=== PATIENT | male | born 1940 | race Two or more races ===

== ENCOUNTER 2016-07-12 22:48 | Inpatient (IN) | payer OTHER ==
[2016-07-12 22:54] VITALS: BMI 26.6
--- NOTE | 2016-07-12 23:28 | PDOC ---
[id number] is a 76 year old male with a past medical hx of diverticulitis, stomach ulcer, CVA (2004) who presents to the ED complaining of rectal bleeding since this morning. The patient reports he was in his normal state of health up until this morning. He reports he had his last routine check-up 4 days ago. The patient reports he has no abdominal pain, nausea, vomiting, diarrhea, fever. He notes his only complaint is rectal bleeding. PCP: Dr. Murdock <Clemencia Walton - Last Filed: 07/13/16 01:48> <Nayeli Eugene - Last Filed: 07/13/16 03:09> - General Chief Complaint: Rectal Bleed Stated Complaint: RECTAL BLEED Time Seen by Provider: 07/12/16 23:27 Past History <Clemencia Walton - Last Filed: 07/13/16 01:48> - Psycho/Social/Smoking Cessation Hx Suicidal Ideation: No Smoking History: Never smoked Have you smoked in the past 12 months: No Information on smoking cessation initiated: No Hx Alcohol Use: No Drug/Substance Use Hx: No <Nayeli Eugene - Last Filed: 07/13/16 03:09> - Past Medical History Allergies/Adverse Reactions: Allergies Allergy/AdvReac Type Severity Reaction Status Date / Time No Known Allergies Allergy Verified 07/12/16 22:52 Home Medications: Ambulatory Orders Amlodipine Besylate/Benazepril [Lotrel 5-40 mg Capsule] 1 each PO DAILY Carvedilol [Coreg -] 25 mg PO DAILY 07/13/16 Esomeprazole Magnesium [Nexium 24Hr] 40 mg PO DAILY 07/13/16 Multivitamins [Tab-A-Vit -] 1 tab PO DAILY 07/13/16 Sitagliptin Phosphate [Januvia -] 100 mg PO DAILY@0700 07/13/16 Triamcinolone 0.1% Lotion [Aristocort] 1 applic TP DAILY 07/13/16 Review of Systems - Review of Systems Able to Perform ROS?: Yes Comments:: 07/13/16 01:30 CONSTITUTIONAL: Absent: fever, chills, diaphoresis, generalized weakness, malaise, loss of appetite HEENT: Absent: rhinorrhea, nasal congestion, throat pain, throat swelling, difficulty swallowing, mouth swelling, ear pain, eye pain, visual Changes CARDIOVASCULAR: Absent: chest pain, syncope, palpitations, irregular heart rate, lightheadedness , peripheral edema RESPIRATORY: Absent: cough, shortness of breath, dyspnea with exertion, orthopnea, wheezing, stridor, hemoptysis GASTROINTESTINAL: +Melena. Absent: abdominal pain, abdominal distension, nausea, vomiting, diarrhea, constipation, hematochezia GENITOURINARY: Absent: dysuria, frequency, urgency, hesitancy, hematuria, flank pain, genital pain MUSCULOSKELETAL: Absent: myalgia, arthralgia, joint swelling SKIN: Absent: rash, itching, pallor HEMATOLOGIC/IMMUNOLOGIC: Absent: easy bleeding, easy bruising, lymphadenopathy, frequent infections ENDOCRINE: Absent: unexplained weight gain, unexplained weight loss, heat intolerance, cold intolerance NEUROLOGIC: Absent: headache, focal weakness or paresthesias, dizziness, unsteady gait, seizure, mental status changes, bladder or bowel incontinence PSYCHIATRIC: Absent: anxiety, depression, suicidal or homicidal ideation, hallucinations. <Clemencia Walton - Last Filed: 07/13/16 01:48> *Physical Exam - Vital Signs Last Vital Signs Temp Pulse Resp BP Pulse Ox 98.2 F 75 14 161/90 97 07/12/16 22:52 07/12/16 22:52 07/12/16 22:52 07/12/16 22:52 07/12/16 22:52 - Physical Exam Comments: 07/13/16 01:31 GENERAL: Well developed, well nourished. Awake and alert. No acute distress. HEENT: Normocephalic, atraumatic. PERRLA, EOMI. No conjunctival pallor. Sclera are non- icteric. Moist mucous membranes. Oropharynx is clear. NECK: Supple. Full ROM. No JVD. Carotid pulses 2+ and symmetric, without bruits. No thyromegaly. No lymphadenopathy. CARDIOVASCULAR: Regular rate and rhythm. No murmurs, rubs, or gallops. Distal pulses are 2+ and symmetric. PULMONARY: No evidence of respiratory distress. Lungs clear to auscultation bilaterally. No wheezing, rales or rhonchi. ABDOMINAL: Soft. Non-tender. Non-distended. No rebound or guarding. No organomegaly. Normoactive bowel sounds. RECTAL: +Melena MUSCULOSKELETAL Normal range of motion at all joints. No bony deformities or tenderness. No CVA tenderness. EXTREMITIES: No cyanosis. No clubbing. No edema. No calf tenderness. SKIN: Warm and dry. Normal capillary refill. No rashes. No jaundice. NEUROLOGICAL: +Chronic aphasia. Alert, awake, appropriate. Cranial nerves 2-12 intact. No deficits to light touch and temperature in face, upper extremities and lower extremities. No motor deficits in the in face, upper extremities and lower extremities. PSYCHIATRIC: Cooperative. Good eye contact. Appropriate mood and affect. <Clemencia Walton - Last Filed: 07/13/16 01:48> - Vital Signs Last Vital Signs Temp Pulse Resp BP Pulse Ox 98.2 F 75 14 161/90 97 07/12/16 22:52 07/12/16 22:52 07/12/16 22:52 07/12/16 22:52 07/12/16 22:52 <Nayeli Eugene - Last Filed: 07/13/16 03:09> ED Treatment Course - LABORATORY CBC & Chemistry Diagram: 07/12/16 23:58 07/12/16 23:58 - ADDITIONAL ORDERS Additional order review: Laboratory Results 07/12/16 07/12/16 23:58 23:58 Sodium 138 Potassium 4.4 Chloride 98 Carbon Dioxide 31 Anion Gap 9 BUN 19 H Creatinine 1.2 Creat Clearance w eGFR 59.02 Random Glucose 142 H Calcium 8.9 Total Bilirubin 0.2 AST 17 ALT 20 Alkaline Phosphatase 134 H Total Protein 7.3 Albumin 3.4 Blood Type B POSITIVE Antibody Screen Negative 07/12/16 23:58 RBC 4.46 MCV 86.8 MCHC 33.6 RDW 13.1 MPV 8.7 Neutrophils % 73.1 Lymphocytes % 16.1 Monocytes % 7.1 Eosinophils % 3.0 Basophils % 0.7 - Medications Given in the ED: ED Medications Discontinued Medications Generic Name Dose Route Start Last Admin Trade Name Freq PRN Reason Stop Dose Admin Pantoprazole Sodium 40 mg/ 100 mls @ 200 mls/hr 07/12/16 23:29 07/13/16 00:02 Sodium Chloride IVPB 07/12/16 23:58 200 mls/hr ONCE ONE Administration <Clemencia Walton - Last Filed: 07/13/16 01:48> - LABORATORY CBC & Chemistry Diagram: 07/12/16 23:58 07/12/16 23:58 <Nayeli Eugene - Last Filed: 07/13/16 03:09> Medical Decision Making - Medical Decision Making 07/13/16 01:[address] Sherwood at 01:28 via answering service, awaiting call back. Dr. Sherwood called back at 01:40, patients case was discussed. <Clemencia Walton - Last Filed: 07/13/16 01:48> - Medical Decision Making 07/13/16 03:06 76 yo male p/w rectal bleeding, melena -no chest pain,no dizziness - troponin negative -hbg and hct normal -normal kidney function -IV protonix given -soft abdominal exam -plan pt admitted for repeat cbc/GI consult,monitoring <Nayeli Eugene - Last Filed: 07/13/16 03:09> *DC/Admit/Observation/Transfer - Attestations Scribe Attestion: 07/13/16 01:30 Documentation prepared by Clemencia Walton, acting as medical secretary for Nayeli Eugene MD/DO. <Clemencia Walton - Last Filed: 07/13/16 01:48> - Discharge Dispostion Admit: Yes <Nayeli Eugene - Last Filed: 07/13/16 03:09> Diagnosis at time of Disposition: Melena, Rectal bleeding Diabetes Qualifiers: Diabetes mellitus type: type 2 Diabetes mellitus complication status: without complication Diabetes mellitus snf insulin use: without assistant terminal manager use Qualified Code(s): E11.9 - Type 2 diabetes mellitus without complications Hypertension Qualifiers: Hypertension type: essential hypertension Qualified Code(s): I10 - Essential ( primary) hypertension - Referrals
[2016-07-12] MEDS ORDERED: PANTOPRAZOLE SODIUM 40 MG in SODIUM CHLORIDE 100 ML IVPB ONE (23:29)
[2016-07-12] MEDS ORDERED: PANTOPRAZOLE SODIUM 100 ML IVPB ONE (23:50)
[2016-07-13 00:11] LABS: BASOPHIL 0.7 % (0-2.0); MCH 29.2 pg (25.7-33.7); MCHC 33.6 g/dl (32.0-35.9); MEAN CELL VOLUME 86.8 fl (80-96); MEAN PLT VOLUME 8.7 fl (7.5-11.1); NEUTROPHILS 73.1 % (42.8-82.8); PLATELET COUNT 236 K/MM3 (134-434); RDW 13.1 % (11.9-15.9); WHITE BLOOD COUNT 11.7 K/mm3 (4.0-10.0)
[2016-07-13 00:34] LABS: ALBUMIN 3.4 g/dl (3.4-5.0); BILIRUBIN,TOTAL 0.2 mg/dL (0.2-1.0); CALCIUM 8.9 mg/dL (8.5-10.1); CREATININE 1.2 mg/dL (0.7-1.3); TOT PROT 7.3 g/dl (6.4-8.2)
[2016-07-13 02:56] LABS: INR 1.14 (0.82-1.09); PROTHROMBIN TIME (PATIENT) 12.6 SEC (9.98-11.88)
[2016-07-13 04:30] LABS: TROPONIN I < 0.02 ng/ml (0.00-0.05)
[2016-07-13] MEDS ORDERED: D5-1/2NS+10 MEQ KCL - 1,000 ML IV SCH (09:15)
[2016-07-13] MEDS ORDERED: PANTOPRAZOLE SODIUM 40 MG VIAL ONE (09:53)
[2016-07-13] MEDS ORDERED: PANTOPRAZOLE SODIUM 40 MG in SODIUM CHLORIDE 100 ML IVPB SCH (10:00)
[2016-07-13] MEDS: D5-NS + 20 MEQ KCL - 1,000 ML IV SCH (10:05)
[2016-07-13] MEDS: PANTOPRAZOLE SODIUM 80 MG in SODIUM CHLORIDE 100 ML IVPB SCH ×2 (10:05→19:30)
[2016-07-13 10:09] LABS: MCH 29.1 pg (25.7-33.7); MCHC 33.5 g/dl (32.0-35.9); MEAN CELL VOLUME 86.9 fl (80-96); MEAN PLT VOLUME 8.8 fl (7.5-11.1); PLATELET COUNT 242 K/MM3 (134-434); RDW 13.2 % (11.9-15.9); WHITE BLOOD COUNT 12.4 K/mm3 (4.0-10.0)
[2016-07-13] MEDS ORDERED: CARVEDILOL 25 MG TABLET (FP) PO ONE (10:15)
[2016-07-13 10:31] LABS: TROPONIN I < 0.02 ng/ml (0.00-0.05)
--- NOTE | 2016-07-13 10:38 | HP ---
Admitting History and Physical - Primary Care Physician PCP: Elliott Murdock - Admission Chief Complaint: gi bleeding History of Present Illness: ER HISTORY - History of Present Illness Initial Comments: 07/13/16 01:29 The patient is a 76 year old male with a past medical hx of diverticulitis, stomach ulcer, CVA (2004) who presents to the ED complaining of rectal bleeding since this morning. The patient reports he was in his normal state of health up until this morning. He reports he had his last routine check-up 4 days ago. The patient reports he has no abdominal pain, nausea, vomiting, diarrhea, fever. He notes his only complaint is rectal bleeding. PCP: Dr. Murdock Pt seen by me in ER Son at bedside spoke with nurse- pt has been having continuous rectal bleeding since he came to the ER. C/O aching pain in epigastric region. no dizziness, nausea . Has some chest pain - points to the bottom of his chest this morning. Has colic type of pain when he goes for bm. Denies any NSAID use. He takes ASA 81 mg daily. He has h/o stomach ulcer 2 years ago and was on Plavix at that time. When he was changted about an hour ago, noted to have continuous oozing of blood. Fresh marylou blood, passing some clots per son. History Source: Patient, Family Member Limitations to Obtaining History: No Limitations - Past Medical History DIRECTOR HUMAN SERVICES: Yes: CVA Cardiovascular: Yes: HTN Gastrointestinal: Yes: Diverticulitis, Peptic Ulcer Disease Endocrine: Yes: Diabetes Mellitus - Smoking History Smoking history: Never smoked Have you smoked in the past 12 months: No - Alcohol/Substance Use Hx Alcohol Use: No - Social History ADL: Independent History of Recent Travel: No Home Medications - Allergies Allergies/Adverse Reactions: Allergies Allergy/AdvReac Type Severity Reaction Status Date / Time No Known Allergies Allergy Verified 07/12/16 22:52 - Home Medications Home Medications: Ambulatory Orders Amlodipine Besylate/Benazepril [Lotrel 5-40 mg Capsule] 1 each PO DAILY Carvedilol [Coreg -] 25 mg PO DAILY 07/13/16 Esomeprazole Magnesium [Nexium 24Hr] 40 mg PO DAILY 07/13/16 Multivitamins [Tab-A-Vit -] 1 tab PO DAILY 07/13/16 Sitagliptin Phosphate [Januvia -] 100 mg PO DAILY@0700 07/13/16 Triamcinolone 0.1% Lotion [Aristocort] 1 applic TP DAILY 07/13/16 Review of Systems - Review of Systems Constitutional: denies: Chills, Fever, Lethargy, Loss of Appetite, Weakness Cardiovascular: reports: Chest Pain. denies: Palpitations, Shortness of Breath Gastrointestinal: reports: Abdominal Pain, Melena, Rectal Bleeding. denies: Diarrhea, Dysphagia, Nausea, Vomiting, Vomiting Blood Neurological: denies: Dizziness Physical Examination Vital Signs: Vital Signs Temperature 98.3 F 07/13/16 08:45 Pulse Rate 76 07/13/16 08:45 Respiratory Rate 16 07/13/16 08:45 Blood Pressure 141/86 07/13/16 08:45 O2 Sat by Pulse Oximetry (%) 98 07/13/16 08:45 Constitutional: Yes: No Distress, Calm Cardiovascular: Yes: Regular Rate and Rhythm Respiratory: Yes: CTA Bilaterally Gastrointestinal: Yes: Normal Bowel Sounds, Soft, Abdomen, Obese. No: Distention, Tenderness Edema: No Psychiatric: Yes: Alert, Oriented Labs: CBC, BMP 07/13/16 09:30 Imaging - Results Chest X-ray: Image Reviewed (clear) EKG: Image Reviewed (NSR, no ST changes) Problem List - Problems (1) Rectal bleeding Code(s): K62.5 - HEMORRHAGE OF ANUS AND RECTUM (2) Diabetes Code(s): E11.9 - TYPE 2 DIABETES MELLITUS WITHOUT COMPLICATIONS Qualifiers: Diabetes mellitus type: type 2 Diabetes mellitus complication status: without complication Diabetes mellitus exterminator termite insulin use: without care home use Qualified Code(s): E11.9 - Type 2 diabetes mellitus without complications (3) Hypertension Code(s): I10 - ESSENTIAL (PRIMARY) HYPERTENSION Qualifiers: Hypertension type: essential hypertension Qualified Code(s): I10 - Essential (primary) hypertension (4) Melena Code(s): K92.1 - MELENA Assessment/Plan PLAN Protonix drip monitor CBC GI evaluation-- spoke with Dr manjarrez about the case Spoke with ICU attending for transfer to the unit Transfuse platelets and PRBC hold off diabetic meds, Amlodipine/Benazepril as BP slightly low IV fluids Keep NPO Prognosis guarded DVT prophylaxis-- SCD Spoke with son Time spent - 45 min
[2016-07-13] MEDS: TRIAMCINOLONE ACET 0.1% 60 ML LOTION TP SCH (11:58)
[2016-07-13] MEDS: INSULIN SLIDING SCALE (NOVOLOG) 1 VIAL SQ SCH ×2 (11:58→18:05)
--- NOTE | 2016-07-13 13:30 | EKG ---
Test Reason : Blood Pressure : / mmHG Vent. Rate : 072 BPM Atrial Rate : 072 BPM P-R Int : 198 ms QRS Dur : 086 ms QT Int : 370 ms P-R-T Axes : 038 -08 033 degrees QTc Int : 405 ms NORMAL SINUS RHYTHM NORMAL ECG WHEN COMPARED WITH ECG OF 30-SEP-2004 08:01, NO SIGNIFICANT CHANGE WAS FOUND Confirmed by ZACH JACOBSON MD ([id number]) on 07/13/2016 1:29:50 PM Referred By: Confirmed By:ZACH JACOBSON MD
--- NOTE | 2016-07-13 14:33 | CONSULT ---
Consult Consult Specialty:: PULMONARY/CCM Referred by:: Dr. Reynolds Reason for Consultation:: GI Bleed - History of Present Illness Chief Complaint: GI Bleed History of Present Illness: 76yo male with h/o CVA, diverticulitis, gastric ulcer found in 2007 on endoscopy who presents with onset of rectal bleeding this AM. He reports bright red blood per rectum with clots which continued in the ER. Became tachycardic, diaphoretic and hypotensive which responded to IVF boluses. He denies any nausea , vomiting or abdominal pain. He takes ASA 81mg daily but denies NSAIDs, alcohol use. Denies anticoagulation use. - History Source History Provided By: Patient, Medical Record Limitations to Obtaining History: Clinical Condition - Past Medical History DIRECTOR FURNITURE: Yes: CVA Cardio/Vascular: Yes: HTN Gastrointestinal: Yes: Diverticulitis, Peptic Ulcer Disease Endocrine: Yes: Diabetes Mellitus - Alcohol/Substance Use Hx Alcohol Use: No - Smoking History Smoking history: Never smoked Have you smoked in the past 12 months: No - Social History ADL: Independent History of Recent Travel: No Home Medications - Allergies Allergies/Adverse Reactions: Allergies Allergy/AdvReac Type Severity Reaction Status Date / Time No Known Allergies Allergy Verified 07/12/16 22:52 - Home Medications Home Medications: Ambulatory Orders Amlodipine Besylate/Benazepril [Lotrel 5-40 mg Capsule] 1 each PO DAILY Carvedilol [Coreg -] 25 mg PO DAILY 07/13/16 Esomeprazole Magnesium [Nexium 24Hr] 40 mg PO DAILY 07/13/16 Multivitamins [Tab-A-Vit -] 1 tab PO DAILY 07/13/16 Sitagliptin Phosphate [Januvia -] 100 mg PO DAILY@0700 07/13/16 Triamcinolone 0.1% Lotion [Aristocort] 1 applic TP DAILY 07/13/16 Family Disease History - Family Disease History Other Family History: non-contributory Review of Systems - Review of Systems Constitutional: denies: Chills, Fever Eyes: denies: Recent Change in Vision HENT: denies: Nasal Congestion, Throat Pain Neck: denies: Stiffness, Tenderness Cardiovascular: denies: Chest Pain, Palpitations, Shortness of Breath Respiratory: denies: Cough, Hemoptysis, SOB Gastrointestinal: reports: Rectal Bleeding. denies: Abdominal Pain, Nausea, Vomiting Genitourinary: denies: Dysuria, Hematuria Neurological: denies: Dizziness, Headache Physical Exam Vital Signs: Vital Signs Temperature 98.3 F 07/13/16 08:45 Pulse Rate 64 07/13/16 13:50 Respiratory Rate 20 07/13/16 13:50 Blood Pressure 116/67 07/13/16 13:50 O2 Sat by Pulse Oximetry (%) 100 07/13/16 13:50 Constitutional: Yes: Calm Eyes: Yes: Conjunctiva Clear, EOM Intact HENT: Yes: Atraumatic, Normocephalic, Tonsillar Exudate Neck: Yes: Supple, Trachea Midline Cardiovascular: Yes: Regular Rate and Rhythm Respiratory: Yes: Regular, CTA Bilaterally Gastrointestinal: Yes: Normal Bowel Sounds, Soft. No: Tenderness Edema: No Neurological: Yes: Alert, Oriented, Dysarthria Labs: CBC, BMP 07/13/16 09:30 Imaging - Results Chest X-ray: Report Reviewed, Image Reviewed (no infiltrates) Problem List - Problems (1) GI bleed Code(s): K92.2 - GASTROINTESTINAL HEMORRHAGE, UNSPECIFIED (2) Diverticulosis Code(s): K57.90 - DVRTCLOS OF INTEST, PART UNSP, W/O PERF OR ABSCESS W/O BLEED (3) Acute blood loss anemia Code(s): D62 - ACUTE POSTHEMORRHAGIC ANEMIA (4) Diabetes Code(s): E11.9 - TYPE 2 DIABETES MELLITUS WITHOUT COMPLICATIONS Qualifiers: Diabetes mellitus type: type 2 Diabetes mellitus complication status: without complication Diabetes mellitus technician terminal and repeater insulin use: without mcc use Qualified Code(s): E11.9 - Type 2 diabetes mellitus without complications (5) Hypertension Code(s): I10 - ESSENTIAL (PRIMARY) HYPERTENSION Qualifiers: Hypertension type: essential hypertension Qualified Code(s): I10 - Essential (primary) hypertension (6) History of CVA (cerebrovascular accident) Code(s): Z86.73 - PRSNL HX OF TIA (TIA), AND CEREB INFRC W/O RESID DEFICITS Assessment/Plan GI Bleed likely lower h/o Diverticulosis Acute Blood Loss Anemia h/o CVA HTN DM - monitor H/H - transfuse PRBC - protonix for now - NPO - GI evaluation - ensure large bore peripheral access - DVT prophylaxis - ICU monitoring for now Thank you for this consult Kaushik Gale MD
--- NOTE | 2016-07-13 16:44 | PN ---
Physical Exam: SUBJECTIVE: Patient seen and examined at bedside in ICU. He reported feeling fine and no active complaint. Denies active chest pain, shortness of breath, abd pain, urinary symptoms, fever, chills, dizziness, vision change or weakness. OBJECTIVE: Vital Signs Period Temp Pulse Resp BP Sys/Mcgill Pulse Ox Last 24 Hr 98.3 F 64-76 14-20 76-141/56-86 97-100 GENERAL: AAO x 3, no acute cardiopulmonary distress EYES: sclera anicteric, conjunctiva clear. ENT:nares patent, oropharynx clear without exudates LUNGS: Slight rhonchi in RUL and RLL HEART: RRR, S1, S2 with grade 1-2 ejection murmur, rub or gallop. ABDOMEN: Soft, obese nontender, nondistended, hypoactive bowel sounds, no guarding, no rebound EXTREMITIES: no edema. RECTAL: No external hemorrhoids seen, no hard stool deposited in rectal vault, brown stool upon swab, no active bleeding, hard but non-tender prostate CBCD WBC 12.4 K/mm3 (4.0-10.0) H 07/13/16 09:30 RBC 3.97 M/mm3 (4.00-5.60) L 07/13/16 09:30 Hgb 11.6 GM/dL (11.7-16.9) L D 07/13/16 09:30 Hct 34.5 % (35.4-49) L 07/13/16 09:30 MCV 86.9 fl (80-96) 07/13/16 09:30 MCHC 33.5 g/dl (32.0-35.9) 07/13/16 09:30 RDW 13.2 % (11.9-15.9) 07/13/16 09:30 Plt Count 242 K/MM3 (134-434) 07/13/16 09:30 MPV 8.8 fl (7.5-11.1) 07/13/16 09:30 CMP Sodium 138 mmol/L (136-145) 07/12/16 23:58 Potassium 4.4 mmol/L (3.5-5.1) 07/12/16 23:58 Chloride 98 mmol/L (98-107) 07/12/16 23:58 Carbon Dioxide 31 mmol/L (21-32) 07/12/16 23:58 Anion Gap 9 (8-16) 07/12/16 23:58 BUN 19 mg/dL (7-18) H 07/12/16 23:58 Creatinine 1.2 mg/dL (0.7-1.3) 07/12/16 23:58 Creat Clearance w eGFR 59.02 (>60) 07/12/16 23:58 Calcium 8.9 mg/dL (8.5-10.1) 07/12/16 23:58 Total Bilirubin 0.2 mg/dL (0.2-1.0) 07/12/16 23:58 AST 17 U/L (15-37) 07/12/16 23:58 ALT 20 U/L (12-78) 07/12/16 23:58 Alkaline Phosphatase 134 U/L (45-117) H 07/12/16 23:58 Total Protein 7.3 g/dl (6.4-8.2) 07/12/16 23:58 Albumin 3.4 g/dl (3.4-5.0) 07/12/16 23:58 Intake & Output 07/10/16 07/11/16 07/12/16 07/13/16 23:59 23:59 23:59 23:59 Weight 79.379 kg Active Medications Generic Name Dose Route Start Last Admin Trade Name Yen PRN Reason Stop Dose Admin Carvedilol 25 mg 07/14/16 10:00 Coreg - PO DAILY [facility] Dextrose/Sodium Chloride 1,000 mls @ 100 mls/hr 07/13/16 09:15 07/13/16 10:05 Dextrose 5%-Normal Saline+20 Meq Kcl - IV 100 mls/hr ASDIR [facility]ENCE Administration Pantoprazole Sodium 80 mg/ 100 mls @ 10 mls/hr 07/13/16 09:15 07/13/16 10:05 Sodium Chloride IVPB 10 mls/hr Q10H [facility]ENCE Administration 8 MG/HR Insulin Aspart 1 vial 07/13/16 11:00 07/13/16 11:58 Novolog Vial Sliding Scale - SQ Not Given TIDAC [facility] Protocol Triamcinolone Acetonide 1 applic 07/13/16 10:00 07/13/16 11:58 Aristocort 0.1% Lotion - TP Not Given DAILY [facility] IMAGING CXR on 07/13: No acute pathology ASSESSMENT/PLAN: 76 yo M w/ h/o diverticulitis, gastric ulcers, and CVA admitted to the ICU for acute hematochezia. GI: Hematochezia 2/2 diverticular bleed - Hemodynamically stable - Peripheral IV access in case of fluid resuscitation - Supplemental O2 via NC - Trend CBC * maintain HGB > 9 due to h/o CVA * transfuse FFP if platelets < 50k or INR > 1.5 - Avoid NSAID or AC - Surgery consult - Urgent colonoscopy FEN - IVF - Normal lytes, cont. to monitor - NPO for colonoscopy Prophylaxis - DVT: SCD - GI: on PPI gtt Disposition - Cont. to monitor in ICU Code status - Full code Visit type - Emergency Visit Emergency Visit: Yes ED Registration Date: 07/13/16 Care time: The patient presented to the Emergency Department on the above date and was hospitalized for further evaluation of their emergent condition. - New Patient This patient is new to me today: Yes Date on this admission: 07/13/16 - Critical Care Critical Care patient: Yes Total Critical Care Time (in minutes): 45 Critical Care Statement: The care of this patient involved high complexity decision making to prevent further life threatening deterioration of the patient 's condition and/or to evalute & treat vital organ system(s) failure or risk of failure.
[2016-07-13] MEDS ORDERED: SODIUM CHLORIDE 1,000 ML IV SCH (18:15)
--- NOTE | 2016-07-13 21:10 | CON.GI ---
Consult Referred by:: GI Reason for Consultation:: LGIB - History of Present Illness Chief Complaint: LGIB History of Present Illness: 76 M with h/o diverticulosis/itis, PUD (remote) CVA stated BRBPR on the morning of admission. Seen to pass red blood in the ER at which time he became diaphoretic, tachycardic and hypotensive. He was resuscitated with IVF and brought to the ICU. He takes ASA but no other AC. He is on Rx nexium at home. 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 Cardio/Vascular: Yes: HTN Gastrointestinal: Yes: Diverticulitis, Peptic Ulcer Disease Endocrine: Yes: Diabetes Mellitus - Alcohol/Substance Use Hx Alcohol Use: No - Smoking History Smoking history: Never smoked Have you smoked in the past 12 months: No - Social History ADL: Independent History of Recent Travel: No Home Medications - Allergies Allergies/Adverse Reactions: Allergies Allergy/AdvReac Type Severity Reaction Status Date / Time No Known Allergies Allergy Verified 07/12/16 22:52 - Home Medications Home Medications: Ambulatory Orders Amlodipine Besylate/Benazepril [Lotrel 5-40 mg Capsule] 1 each PO DAILY Carvedilol [Coreg -] 25 mg PO DAILY 07/13/16 Esomeprazole Magnesium [Nexium 24Hr] 40 mg PO DAILY 07/13/16 Multivitamins [Tab-A-Vit -] 1 tab PO DAILY 07/13/16 Sitagliptin Phosphate [Januvia -] 100 mg PO DAILY@0700 07/13/16 Triamcinolone 0.1% Lotion [Aristocort] 1 applic TP DAILY 07/13/16 Family Disease History - Family Disease History Other Family History: non-contributory Physical Exam-GI Vital Signs: Vital Signs Temperature 98.3 F 07/13/16 08:45 Pulse Rate 67 07/13/16 18:44 Respiratory Rate 18 07/13/16 18:44 Blood Pressure 124/62 07/13/16 18:44 O2 Sat by Pulse Oximetry (%) 97 07/13/16 16:00 Constitutional: Yes: Well Nourished HENT: Yes: Normocephalic Neck: Yes: Supple Cardiovascular: Yes: Regular Rate and Rhythm Respiratory: Yes: Regular Gastrointestinal Inspection: Yes: WNL ...Auscultate: Yes: Hyperactive Bowel Sounds ...Palpate: Yes: Soft. No: Tenderness Labs: CBC, BMP INR, PTT INR 1.14 (0.82-1.09) 07/12/16 23:58 CBC, BMP 07/13/16 09:30 07/12/16 23:58 Assessment/Plan Patient is a 76 M with above history now with what appears to be an upper GIB A/P Stat labs protonix drip IVF NPO Transfuse as necessary to maintain Hgb of 9 (Last Hgb 11.6) EGD when stable
[2016-07-13] MEDS: CHLORHEXIDINE GLUCONATE 4% CLEANSER FOR DECOLONIZATION TP SCH (21:37)
[2016-07-13] MEDS: MUPIROCIN 2% TOPICAL OINTMENT FOR DECOLONIZATION NS SCH (21:37)
[2016-07-13 22:07] LABS: MCH 29.3 pg (25.7-33.7); MCHC 33.6 g/dl (32.0-35.9); MEAN CELL VOLUME 87.2 fl (80-96); MEAN PLT VOLUME 9.1 fl (7.5-11.1); PLATELET COUNT 224 K/MM3 (134-434); RDW 13.5 % (11.9-15.9); WHITE BLOOD COUNT 14.1 K/mm3 (4.0-10.0)
[2016-07-13 22:35] LABS: ALBUMIN 2.9 g/dl (3.4-5.0); ANION GAP 9 (8-16); BILIRUBIN,TOTAL 0.8 mg/dL (0.2-1.0); CO2 28 mmol/L (21-32); GLUCOSE,RANDOM 90 mg/dL (74-106); SGOT/AST 13 U/L (15-37); SGPT/ALT 18 U/L (12-78); TOT PROT 6.1 g/dl (6.4-8.2)
[2016-07-13 22:36] LABS: ALK PHOS 96 U/L (45-117)
[2016-07-14 06:18] LABS: BASOPHIL 0.6 % (0-2.0); EOSINOPHIL 2.6 % (0-4.5); MCH 29.7 pg (25.7-33.7); MCHC 33.9 g/dl (32.0-35.9); MEAN CELL VOLUME 87.7 fl (80-96); MEAN PLT VOLUME 8.5 fl (7.5-11.1); NEUTROPHILS 68.7 % (42.8-82.8); PLATELET COUNT 273 K/MM3 (134-434); RDW 13.2 % (11.9-15.9); WHITE BLOOD COUNT 11.8 K/mm3 (4.0-10.0)
[2016-07-14 06:32] LABS: INR 1.21 (0.82-1.09); PROTHROMBIN TIME (PATIENT) 13.4 SEC (9.98-11.88)
[2016-07-14 06:35] LABS: ACTIVATED PTT 28.8 SECONDS (26.9-34.4)
[2016-07-14 06:47] LABS: ANION GAP 8 (8-16); CALCIUM 8.4 mg/dL (8.5-10.1); CO2 31 mmol/L (21-32); GLUCOSE,RANDOM 124 mg/dL (74-106); MAGNESIUM 1.8 mg/dL (1.8-2.4); PHOSPHOROUS 2.5 mg/dL (2.5-4.9); SGOT/AST 15 U/L (15-37)
[2016-07-14 06:49] LABS: ALK PHOS 103 U/L (45-117); BILIRUBIN,TOTAL 0.6 mg/dL (0.2-1.0); SGPT/ALT 18 U/L (12-78); TOT PROT 6.3 g/dl (6.4-8.2)
[2016-07-14] MEDS: INSULIN SLIDING SCALE (NOVOLOG) 1 VIAL SQ SCH ×3 (07:02→18:14)
[2016-07-14] MEDS: PANTOPRAZOLE SODIUM 80 MG in SODIUM CHLORIDE 100 ML IVPB SCH ×2 (07:03→15:29)
--- NOTE | 2016-07-14 08:00 | CONSULT ---
- Consultation REQUESTING PROVIDER: [place] CONSULT REQUEST: We have been asked to surgically evaluate this patient for possible management of GI bleeding PCP:Nathan Sherwood HISTORY OF PRESENT ILLNESS:76 y/o male w/remote h/o PUD presented w/ [facility] 2 days ago of # hours duration; he never had this before; ?? h/o diverticular diasease; he was orthostatic in the ER and was resuscitated and txferred to the ICU; he has no c/o today; he states he has had no more bleeding ; he has had no transfusions since admission. W/u and tx. to date reviewed. He was seen by GI. PMHx: hypertension; DM PSHx: none Home Medications Medication Instructions Recorded Amlodipine Besylate/Benazepril 1 each PO DAILY 07/13/16 [Lotrel 5-40 mg Capsule] Carvedilol [Coreg -] 25 mg PO DAILY 07/13/16 Esomeprazole Magnesium [Nexium 40 mg PO DAILY 07/13/16 24Hr] Multivitamins [Tab-A-Vit -] 1 tab PO DAILY 07/13/16 Sitagliptin Phosphate [Januvia -] 100 mg PO DAILY@0700 07/13/16 Triamcinolone 0.1% Lotion 1 applic TP DAILY 07/13/16 [Aristocort] Allergies Allergy/AdvReac Type Severity Reaction Status Date / Time No Known Allergies Allergy Verified 07/12/16 22:52 PHYSICAL EXAM: GENERAL: Awake, alert, and fully oriented, in no acute distress. HEAD: Normal with no signs of trauma. EYES: sclera anicteric, conjunctiva clear. NECK: Normal ROM, supple without lymphadenopathy, JVD, or masses. ABDOMEN: Soft, nontender, not distended, normoactive bowel sounds, no guarding, no rebound, no masses. No organomegaly. No hernias MUSCULOSKELETAL: Normal ROM at all joints. No bony deformities or tenderness. No CVA tenderness. UPPER EXTREMITIES: 2+ pulses, warm, well-perfused. No cyanosis. Cap refill <2 seconds. No peripheral edema. LOWER EXTREMITIES: 2+ pulses, warm, well-perfused. No calf tenderness. No peripheral edema. NEUROLOGICAL: Normal speech, gait not observed. PSYCH: Cooperative. Good eye contact. Appropriate mood and affect. SKIN: Warm, dry, normal turgor, no rashes or lesions noted. RECTAL: no mass Vital Signs Temperature 98 F 07/14/16 06:00 Pulse Rate 71 07/14/16 07:50 Respiratory Rate 21 07/14/16 07:50 Blood Pressure 140/65 07/14/16 07:50 O2 Sat by Pulse Oximetry (%) 100 07/14/16 07:48 Lab Results WBC 11.8 K/mm3 (4.0-10.0) H 07/14/16 05:05 RBC 3.50 M/mm3 (4.00-5.60) L 07/14/16 05:05 Hgb 10.4 GM/dL (11.7-16.9) L 07/14/16 05:05 Hct 30.7 % (35.4-49) L 07/14/16 05:05 MCV 87.7 fl (80-96) 07/14/16 05:05 MCHC 33.9 g/dl (32.0-35.9) 07/14/16 05:05 RDW 13.2 % (11.9-15.9) 07/14/16 05:05 Plt Count 273 K/MM3 (134-434) D 07/14/16 05:05 Sodium 141 mmol/L (136-145) 07/14/16 05:05 Potassium 4.0 mmol/L (3.5-5.1) 07/14/16 05:05 Chloride 102 mmol/L (98-107) 07/14/16 05:05 Carbon Dioxide 31 mmol/L (21-32) 07/14/16 05:05 Anion Gap 8 (8-16) 07/14/16 05:05 BUN 11 mg/dL (7-18) D 07/14/16 05:05 Creatinine 1.0 mg/dL (0.7-1.3) 07/14/16 05:05 Random Glucose 124 mg/dL (74-106) H D 07/14/16 05:05 Calcium 8.4 mg/dL (8.5-10.1) L 07/14/16 05:05 Blood Type B POSITIVE 07/12/16 23:58 Antibody Screen Negative 07/12/16 23:58 INR 1.21 (0.82-1.09) H 07/14/16 05:05 IMP: likely LGIB secondary to diverticular disease PLAN: Concur w/ a/p to date; agree w/ GI recommendations; will f/u; no indication for asurgical intervention at this time. James Andre MD FACS Visit type - Case Type Case Type: ED Admission - Emergency Emergency Visit: Yes ED Registration Date: 07/13/16 Care time: The patient presented to the Emergency Department on the above date and was hospitalized for further evaluation of their emergent condition. - New patient This patient is new to me today: Yes Date on this admission: 07/14/16 - Critical Care Critical Care patient: Yes Total Critical Care Time: 20
[2016-07-14] MEDS ORDERED: CARVEDILOL 25 MG TABLET (FP) PO SCH (10:00)
[2016-07-14] MEDS: D5-NS + 20 MEQ KCL - 1,000 ML IV SCH ×2 (10:09→18:12)
[2016-07-14] MEDS: TRIAMCINOLONE ACET 0.1% 60 ML LOTION TP SCH (10:11)
--- NOTE | 2016-07-14 10:33 | PN ---
Progress Note, Physician Chief Complaint: had black colored stools this AM No abdominal pain No dizziness No chest pain , palpitations, SOB - Current Medication List Current Medications: Active Medications Carvedilol (Coreg -) 25 mg PO DAILY [facility] Chlorhexidine Gluconate (Hibiclens For Decolonization -) 1 applic TP HS [facility] Last Admin: 07/13/16 21:37 Dose: 1 applic Dextrose/Sodium Chloride (Dextrose 5%-Normal Saline+20 Meq Kcl -) 1,000 mls @ 100 mls/hr IV ASDIR [facility] Last Admin: 07/14/16 10:09 Dose: 100 mls/hr Pantoprazole Sodium 80 mg/ (Sodium Chloride) 100 mls @ 10 mls/hr IVPB Q10H [facility] PRN Reason: 8 MG/HR Last Admin: 07/14/16 07:03 Dose: 10 mls/hr Insulin Aspart (Novolog Vial Sliding Scale -) 1 vial SQ TIDAC [facility] PRN Reason: Protocol Last Admin: 07/14/16 07:02 Dose: Not Given Mupirocin (Bactroban Ointment (For Decolonization) -) 1 applic NS BID [facility] Stop: 07/18/16 21:59 Last Admin: 07/13/16 21:37 Dose: 1 applic Triamcinolone Acetonide (Aristocort 0.1% Lotion -) 1 applic TP DAILY [facility] Last Admin: 07/14/16 10:11 Dose: Not Given - Objective Vital Signs: Vital Signs Temperature 98 F 07/14/16 10:00 Pulse Rate 60 07/14/16 10:00 Respiratory Rate 20 07/14/16 10:00 Blood Pressure 137/70 07/14/16 10:00 O2 Sat by Pulse Oximetry (%) 100 07/14/16 07:48 Constitutional: Yes: No Distress, Calm Cardiovascular: Yes: Regular Rate and Rhythm Respiratory: Yes: CTA Bilaterally Gastrointestinal: Yes: Normal Bowel Sounds, Soft, Abdomen, Obese. No: Distention, Tenderness Edema: No Labs: CBC, BMP 07/14/16 05:05 07/14/16 05:05 INR, PTT INR 1.21 (0.82-1.09) H 07/14/16 05:05 Problem List - Problems (1) Rectal bleeding Code(s): K62.5 - HEMORRHAGE OF ANUS AND RECTUM (2) Diabetes Code(s): E11.9 - TYPE 2 DIABETES MELLITUS WITHOUT COMPLICATIONS Qualifiers: Diabetes mellitus type: type 2 Diabetes mellitus complication status: without complication Diabetes mellitus alf insulin use: without alf use Qualified Code(s): E11.9 - Type 2 diabetes mellitus without complications (3) Hypertension Code(s): I10 - ESSENTIAL (PRIMARY) HYPERTENSION Qualifiers: Hypertension type: essential hypertension Qualified Code(s): I10 - Essential (primary) hypertension (4) Melena Code(s): K92.1 - MELENA Assessment/Plan PLAN Protonix drip monitor CBC GI evaluation appreciated for EGD Surgical eval noted s/p PRBC and platelet transfusion hold off diabetic meds, Amlodipine/Benazepril as BP slightly low IV fluids Keep NPO DVT prophylaxis-- SCD
[2016-07-14] MEDS: MUPIROCIN 2% TOPICAL OINTMENT FOR DECOLONIZATION NS SCH ×2 (10:37→21:46)
--- NOTE | 2016-07-14 12:04 | PN ---
Physical Exam: SUBJECTIVE: Patient seen and examined at bedside in ICU. He has no complaint. He has 2 bowel movement this AM which was tarry and bright red stool. Denies active chest pain, shortness of breath, abd pain, urinary symptoms, fever, chills, dizziness, vision change or weakness. OBJECTIVE: Vital Signs Period Temp Pulse Resp BP Sys/Mcgill Pulse Ox Last 24 Hr 98 F-98.7 F 60-81 12-21 76-140/56-79 95-100 GENERAL: AAO x 3, no acute cardiopulmonary distress EYES: sclera anicteric, conjunctiva clear. ENT:nares patent, oropharynx clear without exudates LUNGS: Slight rhonchi in RUL and RLL HEART: RRR, S1, S2 with grade 1-2 ejection murmur, rub or gallop. ABDOMEN: Soft, obese nontender, nondistended, hypoactive bowel sounds, no guarding, no rebound EXTREMITIES: no edema. RECTAL: No external hemorrhoids seen, no hard stool deposited in rectal vault, brown stool upon swab, no active bleeding, hard but non-tender prostate CBCD WBC 11.8 K/mm3 (4.0-10.0) H 07/14/16 05:05 RBC 3.50 M/mm3 (4.00-5.60) L 07/14/16 05:05 Hgb 10.4 GM/dL (11.7-16.9) L 07/14/16 05:05 Hct 30.7 % (35.4-49) L 07/14/16 05:05 MCV 87.7 fl (80-96) 07/14/16 05:05 MCHC 33.9 g/dl (32.0-35.9) 07/14/16 05:05 RDW 13.2 % (11.9-15.9) 07/14/16 05:05 Plt Count 273 K/MM3 (134-434) D 07/14/16 05:05 MPV 8.5 fl (7.5-11.1) 07/14/16 05:05 CMP Sodium 141 mmol/L (136-145) 07/14/16 05:05 Potassium 4.0 mmol/L (3.5-5.1) 07/14/16 05:05 Chloride 102 mmol/L (98-107) 07/14/16 05:05 Carbon Dioxide 31 mmol/L (21-32) 07/14/16 05:05 Anion Gap 8 (8-16) 07/14/16 05:05 BUN 11 mg/dL (7-18) D 07/14/16 05:05 Creatinine 1.0 mg/dL (0.7-1.3) 07/14/16 05:05 Creat Clearance w eGFR > 60 (>60) 07/14/16 05:05 Calcium 8.4 mg/dL (8.5-10.1) L 07/14/16 05:05 Total Bilirubin 0.6 mg/dL (0.2-1.0) D 07/14/16 05:05 AST 15 U/L (15-37) 07/14/16 05:05 ALT 18 U/L (12-78) 07/14/16 05:05 Alkaline Phosphatase 103 U/L (45-117) 07/14/16 05:05 Total Protein 6.3 g/dl (6.4-8.2) L 07/14/16 05:05 Albumin 3.0 g/dl (3.4-5.0) L 07/14/16 05:05 Intake & Output 07/11/16 07/12/16 07/13/16 07/14/16 23:59 23:59 23:59 23:59 Intake Total 195 297 Output Total 225 2100 Balance -30 -1803 Weight 79.379 kg 79.379 kg Active Medications Generic Name Dose Route Start Last Admin Trade Name Freq PRN Reason Stop Dose Admin Carvedilol 25 mg 07/14/16 22:00 Coreg - PO BID [facility] Chlorhexidine Gluconate 1 applic 07/13/16 22:00 07/13/16 21:37 Hibiclens For Decolonization - TP 1 applic HS [facility] Administration Dextrose/Sodium Chloride 1,000 mls @ 100 mls/hr 07/13/16 09:15 07/14/16 10:09 Dextrose 5%-Normal Saline+20 Meq Kcl - IV 100 mls/hr ASDIR [facility] Administration Pantoprazole Sodium 80 mg/ 100 mls @ 10 mls/hr 07/13/16 09:15 07/14/16 07:03 Sodium Chloride IVPB 10 mls/hr Q10H [facility] Administration 8 MG/HR Insulin Aspart 1 vial 07/13/16 11:00 07/14/16 07:02 Novolog Vial Sliding Scale - SQ Not Given TIDAC [facility] Protocol Mupirocin 1 applic 07/13/16 22:00 07/14/16 10:37 Bactroban Ointment (For Decolonization) - NS 07/18/16 21:59 1 applic BID [facility] Administration Triamcinolone Acetonide 1 applic 07/13/16 10:00 07/14/16 10:11 Aristocort 0.1% Lotion - TP Not Given DAILY [facility] CXR on 07/13: No acute pathology ASSESSMENT/PLAN: 76 yo M w/ h/o diverticulitis, gastric ulcers, and CVA admitted to the ICU for acute hematochezia. GI: Hematochezia 2/2 diverticular bleed - Hemodynamically stable - Peripheral IV access in case of fluid resuscitation - Supplemental O2 via NC - H&H stable, cont. to monitor - Avoid NSAID or AC - Surgery onboard - ?Colonoscopy or EGD today FEN - Cont. IVF - Normal lytes, cont. to monitor - NPO Prophylaxis - DVT: SCD - GI: PPI gtt Disposition - Cont. to monitor in ICU Code status - Full code Visit type - Emergency Visit Emergency Visit: No - New Patient This patient is new to me today: No - Critical Care Critical Care patient: Yes Total Critical Care Time (in minutes): 35 Critical Care Statement: The care of this patient involved high complexity decision making to prevent further life threatening deterioration of the patient 's condition and/or to evalute & treat vital organ system(s) failure or risk of failure.
--- NOTE | 2016-07-14 12:43 | PN ---
Teaching Attending Note Name of Resident: Charles Niño ATTENDING PHYSICIAN STATEMENT I saw and evaluated the patient. I reviewed the resident's note and discussed the case with the resident. I agree with the resident's findings and plan as documented. SUBJECTIVE: Pt seen and examined in the ICU. 2 BM this AM described as dark. Transfused yesterday 1 unit PRBC, 2 platelets. H/H stable this AM. Denies abdominal pain, nausea or vomiting. No shortness of breath or chest pain. OBJECTIVE: Last Vital Signs Temp Pulse Resp BP Pulse Ox 98 F 72 19 122/67 100 07/14/16 10:00 07/14/16 12:00 07/14/16 12:00 07/14/16 12:00 07/14/16 07:48 Intake & Output 07/11/16 07/12/16 07/13/16 07/14/16 23:59 23:59 23:59 23:59 Intake Total 195 297 Output Total 225 2500 Balance -30 -2203 Weight 175 lb 175 lb Gen: NAD at rest Heart: RRR Lung: decreased breath sounds at the bases Abd: soft, nontender Ext: no edema CBC, BMP 07/14/16 05:05 07/14/16 05:05 Active Medications Carvedilol (Coreg -) 25 mg PO BID [facility] Chlorhexidine Gluconate (Hibiclens For Decolonization -) 1 applic TP HS [facility] Last Admin: 07/13/16 21:37 Dose: 1 applic Dextrose/Sodium Chloride (Dextrose 5%-Normal Saline+20 Meq Kcl -) 1,000 mls @ 100 mls/hr IV ASDIR [facility] Last Admin: 07/14/16 10:09 Dose: 100 mls/hr Pantoprazole Sodium 80 mg/ (Sodium Chloride) 100 mls @ 10 mls/hr IVPB Q10H [facility] PRN Reason: 8 MG/HR Last Admin: 07/14/16 07:03 Dose: 10 mls/hr Insulin Aspart (Novolog Vial Sliding Scale -) 1 vial SQ TIDAC [facility] PRN Reason: Protocol Last Admin: 07/14/16 12:38 Dose: Not Given Mupirocin (Bactroban Ointment (For Decolonization) -) 1 applic NS BID [facility] Stop: 07/18/16 21:59 Last Admin: 07/14/16 10:37 Dose: 1 applic Triamcinolone Acetonide (Aristocort 0.1% Lotion -) 1 applic TP DAILY [facility] Last Admin: 07/14/16 10:11 Dose: Not Given ASSESSMENT AND PLAN: GI Bleed likely lower h/o Diverticulosis Acute Blood Loss Anemia h/o CVA HTN DM - monitor H/H - transfuse PRBC as needed - protonix for now - NPO - GI for endoscopy - ensure large bore peripheral access - DVT prophylaxis - can monitor on floor Problem List - Problems (1) GI bleed Code(s): K92.2 - GASTROINTESTINAL HEMORRHAGE, UNSPECIFIED (2) Diverticulosis Code(s): K57.90 - DVRTCLOS OF INTEST, PART UNSP, W/O PERF OR ABSCESS W/O BLEED (3) Acute blood loss anemia Code(s): D62 - ACUTE POSTHEMORRHAGIC ANEMIA (4) Diabetes Code(s): E11.9 - TYPE 2 DIABETES MELLITUS WITHOUT COMPLICATIONS Qualifiers: Diabetes mellitus type: type 2 Diabetes mellitus complication status: without complication Diabetes mellitus termite technician insulin use: without jail use Qualified Code(s): E11.9 - Type 2 diabetes mellitus without complications (5) Hypertension Code(s): I10 - ESSENTIAL (PRIMARY) HYPERTENSION Qualifiers: Hypertension type: essential hypertension Qualified Code(s): I10 - Essential (primary) hypertension (6) History of CVA (cerebrovascular accident) Code(s): Z86.73 - PRSNL HX OF TIA (TIA), AND CEREB INFRC W/O RESID DEFICITS
[2016-07-14] MEDS ORDERED: CARVEDILOL 25 MG TABLET (FP) PO ONE (14:15)
--- NOTE | 2016-07-14 16:20 | EKG ---
Test Reason : Blood Pressure : / mmHG Vent. Rate : 073 BPM Atrial Rate : 073 BPM P-R Int : 184 ms QRS Dur : 080 ms QT Int : 362 ms P-R-T Axes : 041 -01 042 degrees QTc Int : 398 ms NORMAL SINUS RHYTHM NORMAL ECG WHEN COMPARED WITH ECG OF 13-JUL-2016 01:56, NO SIGNIFICANT CHANGE WAS FOUND Confirmed by LAN RAJAN MD ([id number]) on 07/14/2016 4:20:12 PM Referred By: Confirmed By:LAN RAJAN MD
[2016-07-14 16:34] LABS: MCH 29.4 pg (25.7-33.7); MCHC 33.6 g/dl (32.0-35.9); MEAN CELL VOLUME 87.6 fl (80-96); MEAN PLT VOLUME 8.6 fl (7.5-11.1); PLATELET COUNT 269 K/MM3 (134-434); RDW 13.1 % (11.9-15.9); WHITE BLOOD COUNT 10.8 K/mm3 (4.0-10.0)
--- NOTE | 2016-07-14 20:14 | PN ---
GI Progress Note Subjective: Comfortable Some dark stool this am but counts stable - Objective Vital Signs: Vital Signs Temperature 98.3 F 07/14/16 13:16 Pulse Rate 65 07/14/16 18:15 Respiratory Rate 18 07/14/16 18:15 Blood Pressure 116/65 07/14/16 18:15 O2 Sat by Pulse Oximetry (%) 100 07/14/16 07:48 Constitutional: Well Nourished HENT: Yes: Normocephalic Cardiovascular: Yes: Regular Rate and Rhythm Respiratory: Yes: CTA Bilaterally Gastrointestinal Inspection: Yes: WNL ...Auscultate: Yes: Normoactive Bowel Sounds ...Palpate: Yes: Soft. No: Tenderness Labs: CBC, BMP 07/14/16 16:00 07/14/16 05:05 INR, PTT INR 1.21 (0.82-1.09) H 07/14/16 05:05 Assessment/Plan Patient is a 76 M with above history with GIB-unclear source. BUN has remained low suggesting LGIB A/P Follow CBC protonix drip IVF NPO Transfuse as necessary to maintain Hgb of 9 (Last Hgb 11.6) EGD/colon tomorrow
[2016-07-14] MEDS ORDERED: POLYETHYLENE GLYCOL 3350 255 GM BTL PO ONE (20:15)
[2016-07-14] MEDS ORDERED: BISACODYL 5 MG TABLET.DR (FP) PO ONE (20:16)
[2016-07-14] MEDS: CARVEDILOL 25 MG TABLET (FP) PO SCH (21:46)
[2016-07-14] MEDS: CHLORHEXIDINE GLUCONATE 4% CLEANSER FOR DECOLONIZATION TP SCH (21:47)
[2016-07-15 02:19] LABS: MCH 29.6 pg (25.7-33.7); MEAN CELL VOLUME 87.1 fl (80-96); MEAN PLT VOLUME 8.5 fl (7.5-11.1); PLATELET COUNT 264 K/MM3 (134-434); RDW 13.3 % (11.9-15.9); WHITE BLOOD COUNT 10.7 K/mm3 (4.0-10.0)
--- NOTE | 2016-07-15 05:43 | PN ---
Physical Exam: SUBJECTIVE: Patient seen and examined and examined at be side. patient NAD, sitting comfortably, feeling like his normal self, denied abd pain or discomfurt , cp, sob, WILLIS, light headedness, fevers, chills, N/V. + one non bloody normal BM per patient this AM. per nurse note yesterday dark bloody BM. awaiting colonoscopy/endoscopy today. OBJECTIVE: Vital Signs Period Temp Pulse Resp BP Sys/Mcgill Pulse Ox Last 24 Hr 96.1 F-98.3 F 60-81 10-21 110-140/64-74 99-100 GENERAL: AAO x 3, NAD EYES: sclera anicteric, conjunctiva clear. ENT:nares patent, oropharynx clear without exudates LUNGS: crackles on base left lung, good air entry HEART: RRR, S1, S2 with grade 1-2 ejection murmur, rub or gallop. ABDOMEN: Soft, nontender, nondistended, hypoactive bowel sounds, no guarding, no rebound appreciated EXTREMITIES: no edema. RECTAL: deferred as patient going for colonoscopy today and no active signs of bleeding today, h/h stable. Laboratory Results - last 24 hr 07/13/16 07/14/16 07/14/16 17:19 05:05 05:05 WBC 11.8 H RBC 3.50 L Hgb 10.4 L Hct 30.7 L MCV 87.7 MCHC 33.9 RDW 13.2 Plt Count 273 D MPV 8.5 Neutrophils % 68.7 Lymphocytes % 19.5 D Monocytes % 8.6 Eosinophils % 2.6 Basophils % 0.6 INR PTT (Actin FS) Sodium 141 Potassium 4.0 Chloride 102 Carbon Dioxide 31 Anion Gap 8 BUN 11 D Creatinine 1.0 Creat Clearance w eGFR > 60 POC Glucometer 125.86291 Random Glucose 124 H D Calcium 8.4 L Phosphorus 2.5 Magnesium 1.8 Total Bilirubin 0.6 D AST 15 ALT 18 Alkaline Phosphatase 103 Total Protein 6.3 L Albumin 3.0 L 07/14/16 07/14/16 07/14/16 05:05 05:56 11:58 WBC RBC Hgb Hct MCV MCHC RDW Plt Count MPV Neutrophils % Lymphocytes % Monocytes % Eosinophils % Basophils % INR 1.21 H PTT (Actin FS) 28.8 Sodium Potassium Chloride Carbon Dioxide Anion Gap BUN Creatinine Creat Clearance w eGFR POC Glucometer 144.55568 155.13671 Random Glucose Calcium Phosphorus Magnesium Total Bilirubin AST ALT Alkaline Phosphatase Total Protein Albumin 07/14/16 07/14/16 07/15/16 16:00 17:32 02:05 WBC 10.8 H 10.7 H RBC 3.56 L 3.53 L Hgb 10.5 L 10.5 L Hct 31.2 L 30.8 L MCV 87.6 87.1 MCHC 33.6 34.0 RDW 13.1 13.3 Plt Count 269 264 MPV 8.6 8.5 Neutrophils % Lymphocytes % Monocytes % Eosinophils % Basophils % INR PTT (Actin FS) Sodium Potassium Chloride Carbon Dioxide Anion Gap BUN Creatinine Creat Clearance w eGFR POC Glucometer 143.07614 Random Glucose Calcium Phosphorus Magnesium Total Bilirubin AST ALT Alkaline Phosphatase Total Protein Albumin Active Medications Generic Name Dose Route Start Last Admin Trade Name Freq PRN Reason Stop Dose Admin Carvedilol 25 mg 07/14/16 22:00 07/14/16 21:46 Coreg - PO 25 mg BID [facility] Administration Chlorhexidine Gluconate 1 applic 07/13/16 22:00 07/14/16 21:47 Hibiclens For Decolonization - TP 1 applic HS [facility] Administration Dextrose/Sodium Chloride 1,000 mls @ 100 mls/hr 07/13/16 09:15 07/14/16 18:12 Dextrose 5%-Normal Saline+20 Meq Kcl - IV 100 mls/hr ASDIR [facility] Administration Pantoprazole Sodium 80 mg/ 100 mls @ 10 mls/hr 07/13/16 09:15 07/14/16 15:29 Sodium Chloride IVPB 10 mls/hr Q10H [facility] Administration 8 MG/HR Insulin Aspart 1 vial 07/13/16 11:00 07/14/16 18:14 Novolog Vial Sliding Scale - SQ Not Given TIDAC [facility] Protocol Mupirocin 1 applic 07/13/16 22:00 07/14/16 21:46 Bactroban Ointment (For Decolonization) - NS 07/18/16 21:59 1 applic BID [facility] Administration Triamcinolone Acetonide 1 applic 07/13/16 10:00 07/14/16 10:11 Aristocort 0.1% Lotion - TP Not Given DAILY [facility] ASSESSMENT/PLAN: 76 yo M w/ h/o diverticulitis, gastric ulcers, and CVA admitted to the ICU for acute hematochezia. GI: Hematochezia 2/2 diverticular bleed - Hemodynamically stable - Peripheral IV access in case of fluid resuscitation - Supplemental O2 via NC - H&H stable, cont. to monitor - Avoid NSAID or AC - Surgery onboard - Colonoscopy and EGD today FEN - Cont. IVF - Normal lytes, cont. to monitor - NPO Prophylaxis - DVT: SCD - GI: PPI gtt Disposition - Cont. to monitor in ICU, patient can be transferred to floors pending if patient is stable and results of the endo/coloscopy. Code status - Full code Visit type - Emergency Visit Emergency Visit: Yes ED Registration Date: 07/13/16 Care time: The patient presented to the Emergency Department on the above date and was hospitalized for further evaluation of their emergent condition. - New Patient This patient is new to me today: Yes Date on this admission: 07/13/16 - Critical Care Critical Care patient: Yes Total Critical Care Time (in minutes): 41 Critical Care Statement: The care of this patient involved high complexity decision making to prevent further life threatening deterioration of the patient 's condition and/or to evalute & treat vital organ system(s) failure or risk of failure.
[2016-07-15 06:45] LABS: MCHC 34.4 g/dl (32.0-35.9); MEAN CELL VOLUME 87.3 fl (80-96); MEAN PLT VOLUME 8.6 fl (7.5-11.1); PLATELET COUNT 278 K/MM3 (134-434); RDW 13.3 % (11.9-15.9); WHITE BLOOD COUNT 10.9 K/mm3 (4.0-10.0)
[2016-07-15] MEDS: PANTOPRAZOLE SODIUM 80 MG in SODIUM CHLORIDE 100 ML IVPB SCH ×3 (07:42→18:24)
[2016-07-15] MEDS: INSULIN SLIDING SCALE (NOVOLOG) 1 VIAL SQ SCH ×3 (07:42→18:53)
--- NOTE | 2016-07-15 08:05 | PN ---
Progress Note (short form) - Note Progress Note: SUBJECTIVE: Patient seen and examined in the ICU. Chart reviewed. Comfortable. Denies pain. OBJECTIVE: Vital Signs 07/15/16 07/15/16 07/15/16 02:00 04:00 06:00 Temperature 96.1 F L 97.4 F L Pulse Rate 81 63 59 L Respiratory 18 17 18 Rate Blood Pressure 124/70 111/73 131/80 07/15/16 08:13 Temperature 98.5 F Pulse Rate 62 Respiratory 20 Rate Blood Pressure 122/73 Intake & Output 07/14/16 07/15/16 07/15/16 23:59 07:59 15:59 Intake Total 1320 2640 Output Total 200 200 Balance 1120 2440 Intake: IV 1200 2400 Dextrose 5%-Normal Saline 1200 2400 +20 Meq KCl - 1,000 ml @ 100 mls/hr IV ASDIR [facility] Rx#:[id number] IVPB 120 240 Output: Urine 200 200 Void 200 200 Other: Voiding Method Urinal Bowel Movement No Yes # Bowel Movements 7 Active Medications Carvedilol (Coreg -) 25 mg PO BID [facility] Last Admin: 07/14/16 21:46 Dose: 25 mg Chlorhexidine Gluconate (Hibiclens For Decolonization -) 1 applic TP HS [facility] Last Admin: 07/14/16 21:47 Dose: 1 applic Dextrose/Sodium Chloride (Dextrose 5%-Normal Saline+20 Meq Kcl -) 1,000 mls @ 100 mls/hr IV ASDIR [facility] Last Admin: 07/14/16 18:12 Dose: 100 mls/hr Pantoprazole Sodium 80 mg/ (Sodium Chloride) 100 mls @ 10 mls/hr IVPB Q10H [facility] PRN Reason: 8 MG/HR Last Admin: 07/15/16 07:42 Dose: 10 mls/hr Insulin Aspart (Novolog Vial Sliding Scale -) 1 vial SQ TIDAC [facility] PRN Reason: Protocol Last Admin: 07/15/16 07:42 Dose: Not Given Mupirocin (Bactroban Ointment (For Decolonization) -) 1 applic NS BID [facility] Stop: 07/18/16 21:59 Last Admin: 07/14/16 21:46 Dose: 1 applic Triamcinolone Acetonide (Aristocort 0.1% Lotion -) 1 applic TP DAILY [facility] Last Admin: 07/14/16 10:11 Dose: Not Given CBC, BMP 07/15/16 06:30 07/14/16 05:05 Laboratory Results - last 24 hr 07/14/16 07/14/16 07/14/16 11:58 16:00 17:32 WBC 10.8 H RBC 3.56 L Hgb 10.5 L Hct 31.2 L MCV 87.6 MCHC 33.6 RDW 13.1 Plt Count 269 MPV 8.6 POC Glucometer 155.20220 143.10157 07/15/16 07/15/16 02:05 06:30 WBC 10.7 H 10.9 H RBC 3.53 L 3.59 L Hgb 10.5 L 10.8 L Hct 30.8 L 31.3 L MCV 87.1 87.3 MCHC 34.0 34.4 RDW 13.3 13.3 Plt Count 264 278 MPV 8.5 8.6 POC Glucometer PHYSICAL EXAMINATION: Constitutional: Yes: No Distress, Calm Cardiovascular: Yes: Regular Rate and Rhythm Respiratory: Yes: CTA Bilaterally Gastrointestinal: Yes: Normal Bowel Sounds, Soft, Abdomen, Obese. No: Distention, Tenderness Edema: No Problem List - Problems (1) Rectal bleeding Code(s): K62.5 - HEMORRHAGE OF ANUS AND RECTUM (2) Diabetes Code(s): E11.9 - TYPE 2 DIABETES MELLITUS WITHOUT COMPLICATIONS Qualifiers: Diabetes mellitus type: type 2 Diabetes mellitus complication status: without complication Diabetes mellitus continuous churn buttermaker insulin use: without continuous churn buttermaker use Qualified Code(s): E11.9 - Type 2 diabetes mellitus without complications (3) Hypertension Code(s): I10 - ESSENTIAL (PRIMARY) HYPERTENSION Qualifiers: Hypertension type: essential hypertension Qualified Code(s): I10 - Essential (primary) hypertension (4) Melena Code(s): K92.1 - MELENA ASSESSMENT & PLAN: - Clinically stable. - Scheduled for EGD and Colonoscopy today. - Continue present care. - Will follow. Documentation prepared by Patt Flores, acting as a medical records library professor for Nathan Sherwood MD.
--- NOTE | 2016-07-15 08:36 | PN ---
Progress Note (short form) - Note Progress Note: Resting comfortably without complaint. States he feels great! Per RN notes, pt had a dark bloody bm yesterday. Denies n/v/f/c, CP, SOB, palpitations or weak. Last Vital Signs Temp Pulse Resp BP Pulse Ox 98.5 F 62 20 122/73 99 07/15/16 08:13 07/15/16 08:13 07/15/16 08:13 07/15/16 08:13 07/14/16 21:00 CBC, BMP 07/15/16 06:30 07/14/16 05:05 Problem List - Problems (1) GI bleed Assessment/Plan: Patient going for EGD & Colonoscopy today. Await final results. Cont medical management at this time Code(s): K92.2 - GASTROINTESTINAL HEMORRHAGE, UNSPECIFIED
[2016-07-15] MEDS ORDERED: PT OWN MED DRAWER 7, Y5N ONE ×2 (10:27→12:38)
[2016-07-15] MEDS: D5-NS + 20 MEQ KCL - 1,000 ML IV SCH ×2 (11:44→15:12)
[2016-07-15] MEDS: CARVEDILOL 25 MG TABLET (FP) PO SCH ×2 (11:44→21:32)
[2016-07-15] MEDS: MUPIROCIN 2% TOPICAL OINTMENT FOR DECOLONIZATION NS SCH ×2 (11:44→21:33)
[2016-07-15] MEDS: TRIAMCINOLONE ACET 0.1% 60 ML LOTION TP SCH (11:54)
--- NOTE | 2016-07-15 12:35 | PN ---
Teaching Attending Note Name of Resident: Dom Matthews ATTENDING PHYSICIAN STATEMENT I saw and evaluated the patient. I reviewed the resident's note and discussed the case with the resident. I agree with the resident's findings and plan as documented. SUBJECTIVE: Pt seen and examined in the ICU. Still with dark BM overnight. No CP or SOB. Awaiting endoscopy. Intake & Output 07/12/16 07/13/16 07/14/16 07/15/16 23:59 23:59 23:59 23:59 Intake Total 195 1617 2640 Output Total 225 3000 200 Balance -30 -1383 2440 Weight 175 lb 175 lb Last Vital Signs Temp Pulse Resp BP Pulse Ox 98.5 F 79 20 141/72 99 07/15/16 08:13 07/15/16 10:23 07/15/16 10:23 07/15/16 10:23 07/14/16 21:00 Active Medications Carvedilol (Coreg -) 25 mg PO BID [facility] Last Admin: 07/15/16 11:44 Dose: 25 mg Chlorhexidine Gluconate (Hibiclens For Decolonization -) 1 applic TP HS [facility] Last Admin: 07/14/16 21:47 Dose: 1 applic Dextrose/Sodium Chloride (Dextrose 5%-Normal Saline+20 Meq Kcl -) 1,000 mls @ 100 mls/hr IV ASDIR [facility] Last Admin: 07/15/16 11:44 Dose: Not Given Pantoprazole Sodium 80 mg/ (Sodium Chloride) 100 mls @ 10 mls/hr IVPB Q10H [facility] PRN Reason: 8 MG/HR Last Admin: 07/15/16 07:42 Dose: 10 mls/hr Insulin Aspart (Novolog Vial Sliding Scale -) 1 vial SQ TIDAC [facility] PRN Reason: Protocol Last Admin: 07/15/16 07:42 Dose: Not Given Mupirocin (Bactroban Ointment (For Decolonization) -) 1 applic NS BID [facility] Stop: 07/18/16 21:59 Last Admin: 07/15/16 11:44 Dose: 1 applic Triamcinolone Acetonide (Aristocort 0.1% Lotion -) 1 applic TP DAILY [facility] Last Admin: 07/15/16 11:54 Dose: Not Given Gen: NAD at rest Heart: RRR Lung: decreased breath sounds at the bases Abd: soft, nontender Ext: no edema Laboratory Results - last 24 hr 07/14/16 07/14/16 07/14/16 11:58 16:00 17:32 WBC 10.8 H RBC 3.56 L Hgb 10.5 L Hct 31.2 L MCV 87.6 MCHC 33.6 RDW 13.1 Plt Count 269 MPV 8.6 POC Glucometer [phone] 07/15/16 07/15/16 02:05 06:30 WBC 10.7 H 10.9 H RBC 3.53 L 3.59 L Hgb 10.5 L 10.8 L Hct 30.8 L 31.3 L MCV 87.1 87.3 MCHC 34.0 34.4 RDW 13.3 13.3 Plt Count 264 278 MPV 8.5 8.6 POC Glucometer Problem List - Problems (1) GI bleed Code(s): K92.2 - GASTROINTESTINAL HEMORRHAGE, UNSPECIFIED (2) Diverticulosis Code(s): K57.90 - DVRTCLOS OF INTEST, PART UNSP, W/O PERF OR ABSCESS W/O BLEED (3) Acute blood loss anemia Code(s): D62 - ACUTE POSTHEMORRHAGIC ANEMIA (4) Diabetes Code(s): E11.9 - TYPE 2 DIABETES MELLITUS WITHOUT COMPLICATIONS Qualifiers: Diabetes mellitus type: type 2 Diabetes mellitus complication status: without complication Diabetes mellitus watermaster insulin use: without retirement use Qualified Code(s): E11.9 - Type 2 diabetes mellitus without complications (5) Hypertension Code(s): I10 - ESSENTIAL (PRIMARY) HYPERTENSION Qualifiers: Hypertension type: essential hypertension Qualified Code(s): I10 - Essential (primary) hypertension (6) History of CVA (cerebrovascular accident) Code(s): Z86.73 - PRSNL HX OF TIA (TIA), AND CEREB INFRC W/O RESID DEFICITS ASSESSMENT AND PLAN: GI Bleed likely lower h/o Diverticulosis Acute Blood Loss Anemia h/o CVA HTN DM - monitor H/H - Normal transfusion thresholds - protonix for now - NPO - GI for endoscopy - ensure large bore peripheral access - DVT prophylaxis Dr Andrade CCTime 35"
[2016-07-15] MEDS ORDERED: PROPOFOL 20 ML ONE ×3 (18:41)
--- NOTE | 2016-07-15 20:08 | PN ---
Progress Note (short form) - Note Progress Note: ADDENDUM: S/P EGD and colon EGD normal Colon with L sided diverticulosis and blood noted in lower colon After washing, a small amount of blood was issuing from 1 diverticulum. An endoclip was placed, closing the diverticulum. No further blood noted. A 1 cm polyp was removed at 45 cm with snare cautery and sent to pathology. May have clear liquid diet
[2016-07-15] MEDS: CHLORHEXIDINE GLUCONATE 4% CLEANSER FOR DECOLONIZATION TP SCH (23:00)
[2016-07-16] MEDS: INSULIN SLIDING SCALE (NOVOLOG) 1 VIAL SQ SCH ×3 (06:29→17:07)
[2016-07-16] MEDS: PANTOPRAZOLE SODIUM 80 MG in SODIUM CHLORIDE 100 ML IVPB SCH (06:30)
[2016-07-16 06:37] LABS: MCH 30.3 pg (25.7-33.7); MCHC 34.7 g/dl (32.0-35.9); MEAN CELL VOLUME 87.5 fl (80-96); PLATELET COUNT 280 K/MM3 (134-434); RDW 13.3 % (11.9-15.9); WHITE BLOOD COUNT 10.2 K/mm3 (4.0-10.0)
[2016-07-16 06:59] LABS: ALBUMIN 2.9 g/dl (3.4-5.0); ANION GAP 8 (8-16); CALCIUM 8.4 mg/dL (8.5-10.1); CO2 29 mmol/L (21-32); GLUCOSE,RANDOM 118 mg/dL (74-106)
[2016-07-16 07:05] LABS: ALK PHOS 105 U/L (45-117); BILIRUBIN,TOTAL 0.5 mg/dL (0.2-1.0); COCKROFT - GAULT 78.34; CREATININE 0.9 mg/dL (0.7-1.3); SGOT/AST 15 U/L (15-37); SGPT/ALT 17 U/L (12-78); TOT PROT 6.2 g/dl (6.4-8.2)
--- NOTE | 2016-07-16 08:00 | PN ---
Progress Note (short form) - Note Progress Note: PULM / CRTICAL CARE MEDICINE PROGRESS NOTE: Pt seen and examined in the ICU 24 HOUR EVENTS: -Scope - bleeding diverticulum - clipped -Stable overnight, on room air, no BM yet Current Medications Carvedilol (Coreg -) 25 mg PO BID [facility] Last Admin: 07/15/16 21:32 Dose: 25 mg Chlorhexidine Gluconate (Hibiclens For Decolonization -) 1 applic TP HS [facility] Last Admin: 07/15/16 23:00 Dose: 1 applic Dextrose/Sodium Chloride (Dextrose 5%-Normal Saline+20 Meq Kcl -) 1,000 mls @ 100 mls/hr IV ASDIR [facility] Last Admin: 07/15/16 15:12 Dose: 100 mls/hr Pantoprazole Sodium 80 mg/ (Sodium Chloride) 100 mls @ 10 mls/hr IVPB Q10H [facility] PRN Reason: 8 MG/HR Last Admin: 07/16/16 06:30 Dose: 10 mls/hr Insulin Aspart (Novolog Vial Sliding Scale -) 1 vial SQ TIDAC [facility] PRN Reason: Protocol Last Admin: 07/16/16 06:29 Dose: Not Given Mupirocin (Bactroban Ointment (For Decolonization) -) 1 applic NS BID [facility] Stop: 07/18/16 21:59 Last Admin: 07/15/16 21:33 Dose: 1 applic Triamcinolone Acetonide (Aristocort 0.1% Cream -) 1 applic TP DAILY [facility] Vital Signs Temp 98.2 F 07/16/16 06:00 Pulse 62 07/16/16 06:00 Resp 18 07/16/16 06:00 BP 118/60 07/16/16 06:00 Pulse Ox 98 07/15/16 21:00 Intake & Output 07/15/16 07/16/16 07/16/16 18:59 06:59 18:59 Intake Total 2200 1870 Output Total 1850 Balance 2200 20 Weight 78.103 kg Intake: IV 1999 1770 Dextrose 5%-Normal Saline 1999 1200 +20 Meq KCl - 1,000 ml @ 100 mls/hr IV ASDIR [facility] Rx#:[id number] protonix gtt 70 IVPB 200 Oral 100 Output: Urine 1850 Void 1850 Other: Voiding Method Urinal Weight Measurement Method Built in [facility] Gen: alert Heart: RRR Lung: clear Abd: soft, nontender Ext: no edema CBC, BMP 07/16/16 05:00 07/16/16 05:00 Problem List - Problems (1) GI bleed Code(s): K92.2 - GASTROINTESTINAL HEMORRHAGE, UNSPECIFIED (2) Diverticulosis Code(s): K57.90 - DVRTCLOS OF INTEST, PART UNSP, W/O PERF OR ABSCESS W/O BLEED (3) Acute blood loss anemia Code(s): D62 - ACUTE POSTHEMORRHAGIC ANEMIA (4) Diabetes Code(s): E11.9 - TYPE 2 DIABETES MELLITUS WITHOUT COMPLICATIONS Qualifiers: Diabetes mellitus type: type 2 Diabetes mellitus complication status: without complication Diabetes mellitus oil heaterman insulin use: without oil heaterman use Qualified Code(s): E11.9 - Type 2 diabetes mellitus without complications (5) Hypertension Code(s): I10 - ESSENTIAL (PRIMARY) HYPERTENSION Qualifiers: Hypertension type: essential hypertension Qualified Code(s): I10 - Essential (primary) hypertension (6) History of CVA (cerebrovascular accident) Code(s): Z86.73 - PRSNL HX OF TIA (TIA), AND CEREB INFRC W/O RESID DEFICITS ASSESSMENT AND PLAN: GI Bleed Diverticulosis Acute Blood Loss Anemia h/o CVA HTN DM - monitor H/H - Normal transfusion thresholds - GI following - CL diet today - DVT prophylaxis 35" Transfer to the floor today Mike Wong Pulm / Critical Care POWER [employer]ESS [employer]ER
--- NOTE | 2016-07-16 08:46 | PN ---
Progress Note (short form) - Note Progress Note: Alert. Resting comfortably without complaint. Tolerating PO diet. Per RN notes, no acute events or bloody BM since GI scope yesterday. Deneis n/v/f/c, CP or SOB. Last Vital Signs Temp Pulse Resp BP Pulse Ox 98.2 F 62 18 118/60 98 07/16/16 06:00 07/16/16 06:00 07/16/16 06:00 07/16/16 06:00 07/15/16 21:00 CBC, BMP 07/16/16 05:00 07/16/16 05:00 Colonoscopy 07/15: bleeding diverticulum --> clipped Problem List - Problems (1) GI bleed Assessment/Plan: Lower GI bleed due to bleeding diverticulum. S/p colonoscopy w/ clipping. Hemodynamically stable. Diet as tolerated Cont medical management Downgrade to floor at ICU discretion No surgical intervention Reconsult surgery PRN Code(s): K92.2 - GASTROINTESTINAL HEMORRHAGE, UNSPECIFIED
[2016-07-16] MEDS: TRIAMCINOLONE ACET 0.1% CREAM 15 GM TUBE TP SCH (09:34)
[2016-07-16] MEDS: CARVEDILOL 25 MG TABLET (FP) PO SCH ×2 (09:35→21:28)
[2016-07-16] MEDS: MUPIROCIN 2% TOPICAL OINTMENT FOR DECOLONIZATION NS SCH ×2 (09:35→21:28)
--- NOTE | 2016-07-16 09:49 | PN ---
Progress Note, Physician Chief Complaint: s/p EGD and colonoscopy Bleeding diverticulum- clipped yesterday no further bleeding poer rectum No distress He drank clears this AM - Current Medication List Current Medications: Active Medications Carvedilol (Coreg -) 25 mg PO BID [facility] Last Admin: 07/16/16 09:35 Dose: 25 mg Chlorhexidine Gluconate (Hibiclens For Decolonization -) 1 applic TP HS [facility] Last Admin: 07/15/16 23:00 Dose: 1 applic Dextrose/Sodium Chloride (Dextrose 5%-Normal Saline+20 Meq Kcl -) 1,000 mls @ 100 mls/hr IV ASDIR [facility] Last Admin: 07/15/16 15:12 Dose: 100 mls/hr Pantoprazole Sodium 80 mg/ (Sodium Chloride) 100 mls @ 10 mls/hr IVPB Q10H [facility] PRN Reason: 8 MG/HR Last Admin: 07/16/16 06:30 Dose: 10 mls/hr Insulin Aspart (Novolog Vial Sliding Scale -) 1 vial SQ TIDAC [facility] PRN Reason: Protocol Last Admin: 07/16/16 06:29 Dose: Not Given Mupirocin (Bactroban Ointment (For Decolonization) -) 1 applic NS BID [facility] Stop: 07/18/16 21:59 Last Admin: 07/16/16 09:35 Dose: 1 applic Triamcinolone Acetonide (Aristocort 0.1% Cream -) 1 applic TP DAILY [facility] Last Admin: 07/16/16 09:34 Dose: 1 applic - Objective Vital Signs: Vital Signs Temperature 98.2 F 07/16/16 06:00 Pulse Rate 65 07/16/16 09:36 Respiratory Rate 18 07/16/16 06:00 Blood Pressure 118/60 07/16/16 06:00 O2 Sat by Pulse Oximetry (%) 100 07/16/16 09:36 Constitutional: Yes: No Distress Cardiovascular: Yes: Regular Rate and Rhythm Respiratory: Yes: CTA Bilaterally Gastrointestinal: Yes: Normal Bowel Sounds, Soft. No: Distention, Tenderness Edema: No Psychiatric: Yes: Alert, Oriented Labs: CBC, BMP 07/16/16 05:00 07/16/16 05:00 INR, PTT INR 1.21 (0.82-1.09) H 07/14/16 05:05 Problem List - Problems (1) Rectal bleeding Code(s): K62.5 - HEMORRHAGE OF ANUS AND RECTUM (2) Diabetes Code(s): E11.9 - TYPE 2 DIABETES MELLITUS WITHOUT COMPLICATIONS Qualifiers: Diabetes mellitus type: type 2 Diabetes mellitus complication status: without complication Diabetes mellitus chcf insulin use: without chcf use Qualified Code(s): E11.9 - Type 2 diabetes mellitus without complications (3) Hypertension Code(s): I10 - ESSENTIAL (PRIMARY) HYPERTENSION Qualifiers: Hypertension type: essential hypertension Qualified Code(s): I10 - Essential (primary) hypertension (4) Melena Code(s): K92.1 - MELENA Assessment/Plan PLAN Protonix drip dc - change to iv daily monitor CBC on clear liquids- advance per GI ok to go to floor iv fluids OOB DVT prophylaxis-- SCD
[2016-07-16] MEDS ORDERED: TRIAMCINOLONE ACET 0.1% 60 ML LOTION TP SCH (10:00)
[2016-07-16] MEDS ORDERED: D5-NS + 20 MEQ KCL - 1,000 ML IV SCH (10:01)
--- NOTE | 2016-07-16 13:06 | PN ---
GI Progress Note Subjective: Patient in bed, comfortable, family present No complaints-taking clear liquids No new bleeding - Objective Vital Signs: Vital Signs Temperature 98.2 F 07/16/16 06:00 Pulse Rate 70 07/16/16 10:00 Respiratory Rate 18 07/16/16 10:00 Blood Pressure 120/78 07/16/16 10:00 O2 Sat by Pulse Oximetry (%) 100 07/16/16 09:36 Constitutional: Well Nourished HENT: Yes: Normocephalic Neck: Yes: Supple Cardiovascular: Yes: Regular Rate and Rhythm Respiratory: Yes: CTA Bilaterally Gastrointestinal Inspection: Yes: WNL ...Auscultate: Yes: Normoactive Bowel Sounds ...Palpate: Yes: Soft. No: Tenderness Labs: CBC, BMP 07/16/16 05:00 07/16/16 05:00 INR, PTT INR 1.21 (0.82-1.09) H 07/14/16 05:05 Assessment/Plan Patient is a 76 M with above history now with diverticular bleed. Clip placed on oozing diverticulum yesterday with no new bleeding since A/P Follow CBC D/C IVF Advance diet May transfer to floor
[2016-07-16] MEDS: ACETAMINOPHEN 325 MG TABLET (FP) PO PRN (18:00)
[2016-07-16] MEDS: D5-NS + 20 MEQ KCL - 1,000 ML IV SCH (18:32)
[2016-07-16 18:47] LABS: URINE APPEARANCE CLEAR; URINE BILIRUBIN NEGATIVE (NEGATIVE); URINE BLOOD NEGATIVE (NEGATIVE); URINE COLOR STRAW; URINE GLUCOSE (UA) NEGATIVE (NEGATIVE); URINE KETONE NEGATIVE (NEGATIVE); URINE LEUK ESTERASE NEGATIVE (NEGATIVE); URINE NITRITE NEGATIVE (NEGATIVE); URINE PROTEIN NEGATIVE (NEGATIVE); URINE UROBILINOGEN NEGATIVE E.U./dl (0.2-1.0)
[2016-07-16] MEDS: CHLORHEXIDINE GLUCONATE 4% CLEANSER FOR DECOLONIZATION TP SCH (21:28)
[2016-07-17 06:17] LABS: MCH 29.8 pg (25.7-33.7); MCHC 34.4 g/dl (32.0-35.9); MEAN CELL VOLUME 86.6 fl (80-96); MEAN PLT VOLUME 8.6 fl (7.5-11.1); PLATELET COUNT 251 K/MM3 (134-434); RDW 13.3 % (11.9-15.9); WHITE BLOOD COUNT 16.2 K/mm3 (4.0-10.0)
[2016-07-17 06:40] LABS: CALCIUM 7.7 mg/dL (8.5-10.1); MAGNESIUM 1.4 mg/dL (1.8-2.4)
[2016-07-17 06:42] LABS: COCKROFT - GAULT 70.5
[2016-07-17] MEDS: INSULIN SLIDING SCALE (NOVOLOG) 1 VIAL SQ SCH ×3 (07:04→17:05)
--- NOTE | 2016-07-17 07:41 | PN ---
Progress Note (short form) - Note Progress Note: Seen and examined in the ICU No bleeding Fever: 101 Blood cultures w/ GNR Added zosyn this AM Current Medications Acetaminophen (Tylenol -) 650 mg PO Q6H PRN PRN Reason: FEVER OR PAIN Last Admin: 07/16/16 18:00 Dose: 650 mg Carvedilol (Coreg -) 25 mg PO BID [facility] Last Admin: 07/16/16 21:28 Dose: 25 mg Chlorhexidine Gluconate (Hibiclens For Decolonization -) 1 applic TP HS [facility] Last Admin: 07/16/16 21:28 Dose: 1 applic Pantoprazole Sodium (Protonix 40mg Ivpb (Pre-Docked)) 100 mls @ 200 mls/hr IVPB DAILY [facility] Dextrose/Sodium Chloride (Dextrose 5%-Normal Saline+20 Meq Kcl -) 1,000 mls @ 80 mls/hr IV ASDIR [facility] Last Admin: 07/16/16 12:27 Dose: 80 mls/hr Insulin Aspart (Novolog Vial Sliding Scale -) 1 vial SQ TIDAC [facility] PRN Reason: Protocol Last Admin: 07/17/16 07:04 Dose: 2 units Mupirocin (Bactroban Ointment (For Decolonization) -) 1 applic NS BID [facility] Stop: 07/18/16 21:59 Last Admin: 07/16/16 21:28 Dose: 1 applic Piperacillin Sod/Tazobactam Sod (Zosyn 4.5gm Ivpb (Pre-Docked)) 4.5 gm IVPB Q8H -[facility] Triamcinolone Acetonide (Aristocort 0.1% Cream -) 1 applic TP DAILY [facility] Last Admin: 07/16/16 09:34 Dose: 1 applic Vital Signs Period Temp Pulse Resp BP Sys/Mcgill Pulse Ox Last 24 Hr 98.7 F-101.7 F 61-105 16-22 104-143/56-78 100-100 Intake & Output 07/14/16 07/15/16 07/16/16 07/17/16 23:59 23:59 23:59 23:59 Intake Total 1617 4620 1750 1000 Output Total 3000 1150 1800 500 Balance -1383 3470 -50 500 Weight 78.103 kg 78.8 kg Exam: CBCD WBC 16.2 K/mm3 (4.0-10.0) H D 07/17/16 05:20 RBC 3.17 M/mm3 (4.00-5.60) L 07/17/16 05:20 Hgb 9.4 GM/dL (11.7-16.9) L 07/17/16 05:20 Hct 27.4 % (35.4-49) L 07/17/16 05:20 MCV 86.6 fl (80-96) 07/17/16 05:20 MCHC 34.4 g/dl (32.0-35.9) 07/17/16 05:20 RDW 13.3 % (11.9-15.9) 07/17/16 05:20 Plt Count 251 K/MM3 (134-434) 07/17/16 05:20 MPV 8.6 fl (7.5-11.1) 07/17/16 05:20 CMP Sodium 139 mmol/L (136-145) 07/17/16 05:20 Potassium 3.7 mmol/L (3.5-5.1) 07/17/16 05:20 Chloride 101 mmol/L (98-107) 07/17/16 05:20 Carbon Dioxide 27 mmol/L (21-32) 07/17/16 05:20 Anion Gap 11 (8-16) 07/17/16 05:20 BUN 8 mg/dL (7-18) D 07/17/16 05:20 Creatinine 1.0 mg/dL (0.7-1.3) 07/17/16 05:20 Creat Clearance w eGFR > 60 (>60) 07/16/16 05:00 Random Glucose 135 mg/dL (74-106) H 07/17/16 05:20 Calcium 7.7 mg/dL (8.5-10.1) L 07/17/16 05:20 Total Bilirubin 0.5 mg/dL (0.2-1.0) 07/16/16 05:00 AST 15 U/L (15-37) 07/16/16 05:00 ALT 17 U/L (12-78) 07/16/16 05:00 Alkaline Phosphatase 105 U/L (45-117) 07/16/16 05:00 Total Protein 6.2 g/dl (6.4-8.2) L 07/16/16 05:00 Albumin 2.9 g/dl (3.4-5.0) L 07/16/16 05:00 CARDIAC ENZYMES Creatine Kinase 81 IU/L (39-308) 07/13/16 09:30 Troponin I < 0.02 ng/ml (0.00-0.05) 07/13/16 09:30 Microbiology 07/16/16 16:55 Blood - Peripheral Venous Blood Culture - Preliminary Pending Organism 07/16/16 16:55 Blood - Peripheral Venous Blood Culture - Preliminary Pending Organism Current Active Problems Acute blood loss anemia (Acute) Diabetes (Acute) Diverticulosis (Acute) GI bleed (Acute) GNR bactermia (Acute) History of CVA (cerebrovascular accident) (Acute) Hypertension (Acute) Melena (Acute) Rectal bleeding (Acute) ASSESSMENT AND PLAN: GI Bleed Diverticulosis GN bactermia Acute Blood Loss Anemia h/o CVA HTN DM - ID consult - repeat blood cultures today - start zosyn for GN coverage - monitor H/H - Normal transfusion thresholds - GI following - Advance diet as tolerated per GI - DVT prophylaxis Stable for floor transfer [facility] Pulm/[facility] CCT: 35" Problem List - Problems (1) Acute blood loss anemia Code(s): D62 - ACUTE POSTHEMORRHAGIC ANEMIA (2) Diabetes Code(s): E11.9 - TYPE 2 DIABETES MELLITUS WITHOUT COMPLICATIONS Qualifiers: Diabetes mellitus type: type 2 Diabetes mellitus complication status: without complication Diabetes mellitus halfway insulin use: without keno terminal operator use Qualified Code(s): E11.9 - Type 2 diabetes mellitus without complications (3) Diverticulosis Code(s): K57.90 - DVRTCLOS OF INTEST, PART UNSP, W/O PERF OR ABSCESS W/O BLEED (4) GI bleed Code(s): K92.2 - GASTROINTESTINAL HEMORRHAGE, UNSPECIFIED (5) Bacteremia due to Gram-negative bacteria Code(s): R78.81 - BACTEREMIA
[2016-07-17] MEDS ORDERED: PIPERACILLIN/TAZOB 4.5 GM/100 ML PRE-DOCKED IVPB ONE (07:45)
--- NOTE | 2016-07-17 08:05 | PN ---
Progress Note, Physician Chief Complaint: had temp 101F yesterday Now low grade No abd pain , nausea, cough, SOB , dysuria He had brown bm yesterday - Current Medication List Current Medications: Active Medications Acetaminophen (Tylenol -) 650 mg PO Q6H PRN PRN Reason: FEVER OR PAIN Last Admin: 07/16/16 18:00 Dose: 650 mg Carvedilol (Coreg -) 25 mg PO BID [facility] Last Admin: 07/16/16 21:28 Dose: 25 mg Chlorhexidine Gluconate (Hibiclens For Decolonization -) 1 applic TP HS [facility] Last Admin: 07/16/16 21:28 Dose: 1 applic Pantoprazole Sodium (Protonix 40mg Ivpb (Pre-Docked)) 100 mls @ 200 mls/hr IVPB DAILY [facility] Dextrose/Sodium Chloride (Dextrose 5%-Normal Saline+20 Meq Kcl -) 1,000 mls @ 80 mls/hr IV ASDIR [facility] Last Admin: 07/16/16 12:27 Dose: 80 mls/hr Levofloxacin (Levaquin 500 Mg Premixed Ivpb -) 100 mls @ 100 mls/hr IVPB DAILY [facility] Insulin Aspart (Novolog Vial Sliding Scale -) 1 vial SQ TIDAC [facility] PRN Reason: Protocol Last Admin: 07/17/16 07:04 Dose: 2 units Mupirocin (Bactroban Ointment (For Decolonization) -) 1 applic NS BID [facility] Stop: 07/18/16 21:59 Last Admin: 07/16/16 21:28 Dose: 1 applic Piperacillin Sod/Tazobactam Sod (Zosyn 4.5gm Ivpb (Pre-Docked)) 4.5 gm IVPB Q8H -IV [facility] Triamcinolone Acetonide (Aristocort 0.1% Cream -) 1 applic TP DAILY [facility] Last Admin: 07/16/16 09:34 Dose: 1 applic - Objective Vital Signs: Vital Signs Temperature 99.4 F 07/17/16 02:00 Pulse Rate 82 07/17/16 06:00 Respiratory Rate 17 07/17/16 06:00 Blood Pressure 125/60 07/17/16 06:00 O2 Sat by Pulse Oximetry (%) 100 07/16/16 20:49 Constitutional: Yes: No Distress Cardiovascular: Yes: Regular Rate and Rhythm Respiratory: Yes: CTA Bilaterally Gastrointestinal: Yes: Normal Bowel Sounds, Soft. No: Distention, Tenderness Edema: No Labs: CBC, BMP 07/17/16 05:20 07/17/16 05:20 INR, PTT INR 1.21 (0.82-1.09) H 07/14/16 05:05 Problem List - Problems (1) Rectal bleeding Code(s): K62.5 - HEMORRHAGE OF ANUS AND RECTUM (2) Diabetes Code(s): E11.9 - TYPE 2 DIABETES MELLITUS WITHOUT COMPLICATIONS Qualifiers: Diabetes mellitus type: type 2 Diabetes mellitus complication status: without complication Diabetes mellitus termite control servicer insulin use: without termite control servicer use Qualified Code(s): E11.9 - Type 2 diabetes mellitus without complications (3) Hypertension Code(s): I10 - ESSENTIAL (PRIMARY) HYPERTENSION Qualifiers: Hypertension type: essential hypertension Qualified Code(s): I10 - Essential (primary) hypertension (4) Melena Code(s): K92.1 - MELENA (5) Bacteremia due to Gram-negative bacteria Code(s): R78.81 - BACTEREMIA (6) Acute blood loss anemia Code(s): D62 - ACUTE POSTHEMORRHAGIC ANEMIA Assessment/Plan PLAN Pt tolerating regular diet Zosyn ordered Repeat blood cultures UA negative, Urine culture pending ID eval monitor CBC replace magnesium iv fluids- decrease OOB DVT prophylaxis-- SCD
[2016-07-17] MEDS ORDERED: D5-NS + 20 MEQ KCL - 1,000 ML IV SCH (08:14)
[2016-07-17] MEDS ORDERED: MAGNESIUM SULF 50% (8.12 MEQ/2 ML-1 GM VIAL) IVPB ONE (08:30)
[2016-07-17] MEDS: CARVEDILOL 25 MG TABLET (FP) PO SCH ×2 (09:06→21:37)
[2016-07-17] MEDS: MUPIROCIN 2% TOPICAL OINTMENT FOR DECOLONIZATION NS SCH ×2 (09:12→21:35)
[2016-07-17] MEDS: TRIAMCINOLONE ACET 0.1% CREAM 15 GM TUBE TP SCH (09:13)
[2016-07-17] MEDS ORDERED: LEVOFLOXACIN 500 MG IVPB 100 ML IVPB SCH (10:00)
[2016-07-17] MEDS ORDERED: PANTOPRAZOLE SODIUM 100 ML IVPB SCH (10:00)
[2016-07-17] MEDS: ACETAMINOPHEN 325 MG TABLET (FP) PO PRN ×2 (10:52→18:12)
--- NOTE | 2016-07-17 11:39 | PN ---
Progress Note (short form) - Note Progress Note: ID Consult dictated 76 year old male admitted with diverticular bleed s/p endoclip (07/15) now with fever/ leukocytosis. Blood c/s 07/12 bottles GNR Pt reports PCN allergy from 1950s. Gram Negative bacteremia/ sepsis, likely GI source. S/P diverticular bleed PCN allergy Pending c/s, empiric cefepime/ flagyl Critical care time 35min
[2016-07-17] MEDS ORDERED: SODIUM CHLORIDE 1,000 ML IV STA (12:42)
[2016-07-17] MEDS ORDERED: CEFEPIME HCL 1 GM VIAL (RESTRICTED TO ID) IVPB SCH (12:45)
[2016-07-17] MEDS ORDERED: CEFEPIME 1 GM/100 ML BAG PRE-DOCKED IVPB SCH (12:45)
[2016-07-17] MEDS: METRONIDAZOLE 500 MG PREMIXED 100 ML IVPB SCH ×2 (13:33→17:06)
[2016-07-17] MEDS: CEFEPIME 1 GM in DEXTROSE 5%-WATER - 100 ML IVPB SCH ×2 (13:33→17:06)
--- NOTE | 2016-07-17 13:37 | CONS ---
DATE OF CONSULTATION: DATE OF DICTATION: 07/17/2016 The patient was seen in the intensive care unit on an emergent basis. He is a 76-year-old male with a history of diverticulosis, who was evaluated for positive blood cultures. He was admitted to the hospital on July 13, 2016, with 1-day history of rectal bleeding. The patient was noted to be anemic. He developed diaphoresis, hypotension, and tachycardia. He required transfer to the intensive care unit where he was transfused packed red blood cells. An EGD was performed on July 15, 2016. EGD was negative. Colonoscopy was performed and he was found to have bleeding from a left colon diverticulum. An Endo Clip was applied, with cessation of bleeding. On July 16, 2016, he developed fever to 101. He was also noted to have an elevated white blood cell count. Blood cultures were obtained and are positive for gram-negative rods in 4 out of 4 bottles. He was given a stat dose of Zosyn. At the present time, he is awake and alert, he has no complaints of abdominal pain, he denies any nausea or vomiting. No recurrent rectal bleeding. 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 Allergies to SHELLFISH. Patient also reports having allergic reaction to PENICILLIN in the 1949s. Medications include Lotrel, Coreg, Nexium, Januvia. SOCIAL HISTORY: He is originally from the [place]. He has been living in the [place] since 1991. Denies tobacco, alcohol, or illicit drug use. SYSTEMS REVIEW: Neurologic: Positive for stroke with residual left hemiparesis. No loss of consciousness or seizure activity. Cardiac: Negative chest pain or palpitations. Respiratory: Negative cough or sputum production. Gastrointestinal: As per HPI. Genitourinary: Negative for urinary tract infection. LABORATORY DATA: White count 16.2, hematocrit 27.4, platelet count 251. BUN 8, creatinine 1.0. Chest x-ray negative. Urinalysis negative. Blood culture: Gram-negative rods, 4 out of 4 bottles. PHYSICAL EXAMINATION: General: He is awake and alert. He is in no acute distress. Vital Signs: Temperature is 99.4, T-max 101.7. Blood pressure 125/60. Pulse 82, regular. Respirations 17 per minute. Eyes: Sclerae anicteric. Heart Sounds: S1, S2. Lungs: Clear. Abdomen: Soft. No tenderness elicited. No mass, rebound or rigidity. Hypoactive bowel sounds. Extremities: Negative for edema. Left hemiparesis present. IMPRESSION: A 76-year-old male admitted with diverticular bleed status post Endo Clip, now with fever and leukocytosis. Blood cultures positive for gram-negative rods, 4/5 bottles. 1. Gram-negative bacteremia/sepsis, likely secondary to gastrointestinal source. 2. Status post diverticular bleed. 3. Sepsis syndrome. 4. Fever and leukocytosis. 5. PENICILLIN allergy. Suspect transient bacteremia from GI focus. Patient with sepsis syndrome including fever, diaphoresis, hypotension, tachycardia, palpitation issue, history of PENICILLIN allergy. Pending identification of blood isolate, empiric antibiotic coverage with cefepime 1 g IV piggyback every 8 hours, Flagyl 500 mg IV piggyback every 8 hours. Hemodynamic monitoring. ICU care. Further recommendations pending identification of blood isolate. Discussed with patient's son. Will follow. Thank you for the kind referral. Critical care time: 35 minutes. ADELA GREENE M.D. [id number]
[2016-07-17] MEDS ORDERED: PIPERACILLIN/TAZOB 4.5 GM/100 ML PRE-DOCKED IVPB SCH (18:00)
[2016-07-17] MEDS: CHLORHEXIDINE GLUCONATE 4% CLEANSER FOR DECOLONIZATION TP SCH (21:35)
[2016-07-18] MEDS: METRONIDAZOLE 500 MG PREMIXED 100 ML IVPB SCH ×3 (01:02→19:49)
[2016-07-18] MEDS ORDERED: D5W IVPB SCH (02:00)
[2016-07-18] MEDS ORDERED: CEFEPIME HCL IVPB SCH (02:00)
[2016-07-18] MEDS: INSULIN SLIDING SCALE (NOVOLOG) 1 VIAL SQ SCH ×3 (06:17→17:30)
[2016-07-18 07:48] LABS: BASOPHIL 0.3 % (0-2.0); MCH 29.7 pg (25.7-33.7); MEAN CELL VOLUME 87.5 fl (80-96); MEAN PLT VOLUME 8.5 fl (7.5-11.1); NEUTROPHILS 87.1 % (42.8-82.8); PLATELET COUNT 187 K/MM3 (134-434); RDW 13.7 % (11.9-15.9); WHITE BLOOD COUNT 9.3 K/mm3 (4.0-10.0)
[2016-07-18 08:14] LABS: ALBUMIN 2.3 g/dl (3.4-5.0); CALCIUM 7.7 mg/dL (8.5-10.1); MAGNESIUM 2.2 mg/dL (1.8-2.4)
[2016-07-18 08:18] LABS: BILIRUBIN,TOTAL 0.6 mg/dL (0.2-1.0); CREATININE 1.2 mg/dL (0.7-1.3); PHOSPHOROUS 2.1 mg/dL (2.5-4.9); TOT PROT 5.5 g/dl (6.4-8.2)
[2016-07-18] MEDS ORDERED: PT OWN MED DRAWER 7, Y5N ONE (09:34)
--- NOTE | 2016-07-18 09:44 | PN ---
Progress Note, Physician Chief Complaint: ID Cefepime and metronidazole Asymptomatic - Current Medication List Current Medications: Active Medications Acetaminophen (Tylenol -) 650 mg PO Q6H PRN PRN Reason: FEVER OR PAIN Last Admin: 07/17/16 18:12 Dose: 650 mg Carvedilol (Coreg -) 25 mg PO BID [facility] Last Admin: 07/17/16 21:37 Dose: 25 mg Cefepime HCl (Maxipime 1 Gm Premix Ivpb) 1 gm IVPB Q8H-IV [facility] Last Admin: 07/18/16 02:27 Dose: 1 gm Chlorhexidine Gluconate (Hibiclens For Decolonization -) 1 applic TP HS [facility] Last Admin: 07/17/16 21:35 Dose: Not Given Metronidazole (Flagyl 500mg Premixed Ivpb -) 100 mls @ 100 mls/hr IVPB Q8H-IV [facility] Last Admin: 07/18/16 01:02 Dose: 100 mls/hr Insulin Aspart (Novolog Vial Sliding Scale -) 1 vial SQ TIDAC [facility] PRN Reason: Protocol Last Admin: 07/18/16 06:17 Dose: Not Given Mupirocin (Bactroban Ointment (For Decolonization) -) 1 applic NS BID [facility] Stop: 07/18/16 21:59 Last Admin: 07/17/16 21:35 Dose: Not Given Pantoprazole Sodium (Protonix 40mg Ivpb (Pre-Docked)) 40 mg IVPB DAILY [facility] Triamcinolone Acetonide (Aristocort 0.1% Cream -) 1 applic TP DAILY [facility] - Objective Vital Signs: Vital Signs Temperature 98.3 F 07/18/16 06:10 Pulse Rate 67 07/18/16 06:10 Respiratory Rate 18 07/18/16 06:10 Blood Pressure 127/60 07/18/16 06:10 O2 Sat by Pulse Oximetry (%) 97 07/17/16 21:00 Constitutional: Yes: Well Nourished, No Distress HENT: Yes: WNL, Atraumatic Neck: Yes: WNL, Supple Cardiovascular: Yes: Regular Rate and Rhythm, S1, S2. No: Murmur Respiratory: Yes: WNL, Regular, CTA Bilaterally. No: Rales, Rhonchi Gastrointestinal: Yes: WNL, Normal Bowel Sounds, Soft. No: Tenderness, Tenderness, Epigastrium Extremities: Yes: Erythema, Other (Phlebitis left antecubital area) Edema: No Labs: CBC, BMP 07/18/16 06:15 07/18/16 06:15 INR, PTT INR 1.21 (0.82-1.09) H 07/14/16 05:05 Problem List - Problems (1) Bacteremia due to Gram-negative bacteria Code(s): R78.81 - BACTEREMIA (2) Sepsis Code(s): A41.9 - SEPSIS, UNSPECIFIED ORGANISM Assessment/Plan Microbiology 07/17/16 08:40 Blood - Peripheral Venous Blood Culture - Preliminary Lactose Fermenting Neg Bacilli 07/16/16 16:55 Blood - Peripheral Venous Blood Culture - Preliminary Lactose Fermenting Neg Bacilli 07/16/16 16:55 Blood - Peripheral Venous Blood Culture - Preliminary Lactose Fermenting Neg Bacilli Laboratory Tests 07/18/16 07/18/16 06:15 06:15 WBC 9.3 D Hgb 8.8 L Plt Count 187 D Creat Clearance w eGFR 59.02 Assessment Gram negative jorge bacteremia GI origin lactose fementer Plan Stop metronidazole Continue Ceftriaxone1 gr q24h Await sensitivity Warm soaks andrews Licea MD
[2016-07-18] MEDS: PANTOPRAZOLE SODIUM 40 MG/100 ML PRE-DOCKED IVPB SCH (09:50)
[2016-07-18] MEDS: CARVEDILOL 25 MG TABLET (FP) PO SCH ×2 (09:50→21:39)
[2016-07-18] MEDS ORDERED: PANTOPRAZOLE SODIUM 40 MG in SODIUM CHLORIDE 100 ML IVPB SCH (10:00)
[2016-07-18] MEDS ORDERED: CEFTRIAXONE 50 ML IVPB ONE (10:15)
--- NOTE | 2016-07-18 10:27 | PN ---
Progress Note (short form) - Note Progress Note: Subjective Patient seen and examined. Chart reviewed. Comfortable. Afebrile. Objective Last Vital Signs Temp Pulse Resp BP Pulse Ox 98.3 F 67 18 127/60 97 07/18/16 06:10 07/18/16 06:10 07/18/16 06:10 07/18/16 06:10 07/17/16 21:00 CBC, BMP 07/18/16 06:15 07/18/16 06:15 Laboratory Results - last 24 hr 07/17/16 07/18/16 07/18/16 06:30 06:15 06:15 WBC 9.3 D RBC 2.96 L Hgb 8.8 L Hct 25.9 L MCV 87.5 MCHC 34.0 RDW 13.7 Plt Count 187 D MPV 8.5 Neutrophils % 87.1 H D Lymphocytes % 6.5 L D Monocytes % 6.1 Eosinophils % 0.0 D Basophils % 0.3 Sodium 137 Potassium 3.8 Chloride 101 Carbon Dioxide 26 Anion Gap 10 BUN 15 D Creatinine 1.2 Creat Clearance w eGFR 59.02 POC Glucometer 165.59936 Random Glucose 107 H D Calcium 7.7 L Phosphorus 2.1 L D Magnesium 2.2 D Total Bilirubin 0.6 AST 38 H D ALT 34 D Alkaline Phosphatase 93 Total Protein 5.5 L Albumin 2.3 L D 07/18/16 06:15 WBC RBC Hgb Hct MCV MCHC RDW Plt Count MPV Neutrophils % Lymphocytes % Monocytes % Eosinophils % Basophils % Sodium Potassium Chloride Carbon Dioxide Anion Gap BUN Creatinine Creat Clearance w eGFR POC Glucometer 117 Random Glucose Calcium Phosphorus Magnesium Total Bilirubin AST ALT Alkaline Phosphatase Total Protein Albumin Physical Exam Constitutional: Yes: No Distress Cardiovascular: Yes: Regular Rate and Rhythm Respiratory: Yes: CTA Bilaterally Gastrointestinal: Yes: Normal Bowel Sounds, Soft. No: Distention, Tenderness Edema: No-- L cubital fossa redness present Assessment and Plan Stable. No further bleeding. S/p clipping for diverticular bleed. Gram negative bacteremia Continue rocephin Warm soaks to the L cubital fossa. Will follow. Documentation prepared by Denise Lopez, acting as a medical practice assistant for Nathan Sherwood MD.
[2016-07-18] MEDS ORDERED: INSULIN (NOVOLOG) ASPART 100 UNITS/ML 10ML VIAL ONE (14:03)
[2016-07-18] MEDS: MUPIROCIN 2% TOPICAL OINTMENT FOR DECOLONIZATION NS SCH (17:27)
[2016-07-18] MEDS: TRIAMCINOLONE ACET 0.1% CREAM 15 GM TUBE TP SCH (17:30)
--- NOTE | 2016-07-18 19:30 | PN ---
GI Progress Note Subjective: chart reviewed, s/p diverticular bleeding, had 1 episode of bleeding this evening, pt is asymptomatic - Objective Vital Signs: Vital Signs Temperature 98.2 F 07/18/16 09:00 Pulse Rate 81 07/18/16 10:40 Respiratory Rate 18 07/18/16 09:00 Blood Pressure 126/76 07/18/16 09:00 O2 Sat by Pulse Oximetry (%) 100 07/18/16 10:40 Constitutional: Well Nourished, Poor Hygeine HENT: Yes: Atraumatic Neck: Yes: Supple Cardiovascular: Yes: Regular Rate and Rhythm Respiratory: Yes: CTA Bilaterally ...Palpate: Yes: Soft. No: Firm/Rigid, Guarding, Hepatomegaly, Mass, Pulsatile Mass, Splenomegaly, Tenderness Labs: CBC, BMP 07/18/16 06:15 07/18/16 06:15 INR, PTT INR 1.21 (0.82-1.09) H 07/14/16 05:05 Problem List - Problems (1) GI bleed Code(s): K92.2 - GASTROINTESTINAL HEMORRHAGE, UNSPECIFIED (2) Diverticular hemorrhage Assessment/Plan: R> clear liquids type and hold serial CBC Code(s): K57.31 - DVRTCLOS OF LG INT W/O PERFORATION OR ABSCESS W BLEEDING
[2016-07-18 21:13] LABS: MCH 29.7 pg (25.7-33.7); MEAN CELL VOLUME 87.2 fl (80-96); MEAN PLT VOLUME 8.8 fl (7.5-11.1); PLATELET COUNT 202 K/MM3 (134-434)
[2016-07-18] MEDS: CHLORHEXIDINE GLUCONATE 4% CLEANSER FOR DECOLONIZATION TP SCH (21:39)
[2016-07-18] MEDS: ACETAMINOPHEN 325 MG TABLET (FP) PO PRN (21:41)
[2016-07-19] MEDS: INSULIN SLIDING SCALE (NOVOLOG) 1 VIAL SQ SCH ×3 (06:03→17:23)
[2016-07-19 07:58] LABS: BASOPHIL 0.5 % (0-2.0); EOSINOPHIL 0.4 % (0-4.5); MCH 29.3 pg (25.7-33.7); MCHC 33.6 g/dl (32.0-35.9); MEAN CELL VOLUME 87.4 fl (80-96); MEAN PLT VOLUME 8.5 fl (7.5-11.1); NEUTROPHILS 82.1 % (42.8-82.8); PLATELET COUNT 205 K/MM3 (134-434); RDW 13.8 % (11.9-15.9); WHITE BLOOD COUNT 9.5 K/mm3 (4.0-10.0)
[2016-07-19 08:27] LABS: ALBUMIN 2.5 g/dl (3.4-5.0); ANION GAP 11 (8-16); CALCIUM 8.1 mg/dL (8.5-10.1); CO2 27 mmol/L (21-32); GLUCOSE,RANDOM 97 mg/dL (74-106)
[2016-07-19 08:32] LABS: ALK PHOS 102 U/L (45-117); BILIRUBIN,TOTAL 0.4 mg/dL (0.2-1.0); COCKROFT - GAULT 71.08; SGOT/AST 33 U/L (15-37); SGPT/ALT 32 U/L (12-78)
--- NOTE | 2016-07-19 08:46 | PN ---
Progress Note (short form) - Note Progress Note: pt comfortable eating breakfast- happy about that. denies pain had one episode of bleeding - small amount yesterday Vital Signs Temp 98.9 F 07/19/16 06:00 Pulse 84 07/19/16 06:00 Resp 18 07/19/16 06:00 BP 121/65 07/19/16 06:00 Pulse Ox 98 07/18/16 21:00 Intake & Output 07/18/16 07/18/16 07/19/16 11:59 23:59 11:59 Intake Total 210 600 100 Output Total 250 Balance 210 350 100 Weight 173 lb 9.6 oz Intake: IV 10 saline lock 10 IVPB 200 Oral 600 100 Output: Urine 250 Void 250 Other: Voiding Method Urinal Toilet # Unmeasured Voids Void 2 Bowel Movement Yes: 1 # Bowel Movements 1 Weight Measurement Method Chair Scale Active Medications Acetaminophen (Tylenol -) 650 mg PO Q6H PRN PRN Reason: FEVER OR PAIN Last Admin: 07/18/16 21:41 Dose: 650 mg Carvedilol (Coreg -) 25 mg PO BID [facility] Last Admin: 07/18/16 21:39 Dose: 25 mg Ceftriaxone Sodium (Rocephin 1gm Ivpb (Pre-Docked)) 1 gm IVPB DAILY [facility] Insulin Aspart (Novolog Vial Sliding Scale -) 1 vial SQ TIDAC [facility] PRN Reason: Protocol Last Admin: 07/19/16 06:03 Dose: Not Given Pantoprazole Sodium (Protonix 40mg Ivpb (Pre-Docked)) 40 mg IVPB DAILY [facility] Last Admin: 07/18/16 09:50 Dose: 40 mg Triamcinolone Acetonide (Aristocort 0.1% Cream -) 1 applic TP DAILY [facility] Last Admin: 07/18/16 17:30 Dose: Not Given CBC, BMP 07/19/16 06:00 07/19/16 06:00 Physical Exam Constitutional: Yes: No Distress/ calm Cardiovascular: Yes: Regular Rate and Rhythm Respiratory: Yes: CTA Bilaterally Gastrointestinal: Yes: Normal Bowel Sounds, Soft. No: Distention, Tenderness Edema: No-- L cubital fossa/ surrounding area -redness present Assessment and Plan h/h stable S/p clipping for diverticular bleed. Gram negative bacteremia Continue rocephin f/u sensitivity Warm soaks -- L cubital fossa. continue present care
[2016-07-19] MEDS ORDERED: POTASSIUM CHLORIDE TABS 20 MEQ TABLET.ER (FP) PO ONE (09:15)
[2016-07-19] MEDS: TRIAMCINOLONE ACET 0.1% CREAM 15 GM TUBE TP SCH (10:00)
[2016-07-19] MEDS ORDERED: cefTRIAXone 1 GM/50 ML BAG (PRE-DOCKED) IVPB SCH (10:00)
[2016-07-19] MEDS: PANTOPRAZOLE SODIUM 40 MG/100 ML PRE-DOCKED IVPB SCH (10:45)
[2016-07-19] MEDS: CARVEDILOL 25 MG TABLET (FP) PO SCH ×2 (10:45→22:42)
--- NOTE | 2016-07-19 12:16 | PATH ---
Surgical Pathology Report Patient Name: ALHAJI PINON Med. Rec. #: [id number] /Age/Gender: 1940 (Age: 76) / M Account: [id number] Location: [facility] MED/SURG Taken: 07/15/2016 Received: 07/18/2016 Reported: 07/19/2016 Physicians: Justin Delcid M.D. Specimen(s) Received TRANSVERSE COLON POLYP Clinical History Melena Colon polyp, diverticular bleed, diverticulosis Final Diagnosis COLON, TRANSVERSE, POLYP, POLYPECTOMY: TUBULAR ADENOMA. Electronically Signed Lyle Parker M.D. Gross Description Received in formalin, labeled "transverse colon polyp" is a waddell, irregular portion of soft tissue measuring 0.2 cm in greatest dimension. The specimen is submitted in toto in one cassette. /07/18/201607/18/2016
--- NOTE | 2016-07-19 15:19 | PN ---
Progress Note (short form) - Note Progress Note: no abdominal pain or cramps 2 episodes of blood in stools today Vital Signs Period Temp Pulse Resp BP Sys/Mcgill Pulse Ox Last 24 Hr 98.4 F-99.2 F 70-84 16-18 105-126/62-68 98 cor-rrr lngs clear abd soft,nt +BS ext no edema CBC, BMP 07/19/16 06:00 07/19/16 06:00 Microbiology 07/16/16 16:55 Blood - Peripheral Venous Blood Culture - Final Enterobacter Cloacae 07/17/16 08:40 Blood - Peripheral Venous Blood Culture - Final Enterobacter Cloacae 07/16/16 16:55 Blood - Peripheral Venous Blood Culture - Final Enterobacter Cloacae 07/17/16 08:45 Blood - Peripheral Venous Blood Culture - Preliminary NO GROWTH OBTAINED AFTER 48 HOURS, INCUBATION TO CONTINUE FOR 3 DAYS. 07/16/16 18:38 Urine - Urine Clean Catch Urine Culture - Final Contaminated: Please Repeat a/p enterobacter bacteremia- repeat blood cultures, switch to ertapenem diverticular bleed- repeat cbc today, GI g/u
[2016-07-19 16:37] LABS: MCH 29.2 pg (25.7-33.7); MCHC 33.5 g/dl (32.0-35.9); MEAN CELL VOLUME 87.1 fl (80-96); MEAN PLT VOLUME 8.9 fl (7.5-11.1); PLATELET COUNT 228 K/MM3 (134-434); RDW 14.2 % (11.9-15.9)
[2016-07-19] MEDS: ERTAPENEM SODIUM 1 GM in SODIUM CHLORIDE 50 ML IVPB SCH (16:58)
[2016-07-19] MEDS: ACETAMINOPHEN 325 MG TABLET (FP) PO PRN (17:51)
--- NOTE | 2016-07-19 19:04 | PN ---
GI Progress Note Subjective: patient with recurrrent rectal bleeding, small in amount, Hemoglobin stable for 24 hours - Objective Vital Signs: Vital Signs Temperature 98.8 F 07/19/16 12:00 Pulse Rate 70 07/19/16 12:00 Respiratory Rate 16 07/19/16 12:00 Blood Pressure 105/62 07/19/16 12:00 O2 Sat by Pulse Oximetry (%) 98 07/18/16 21:00 Constitutional: Well Nourished Eyes: Yes: Conjunctiva Clear HENT: Yes: Atraumatic Neck: Yes: Trachea Midline Cardiovascular: Yes: Regular Rate and Rhythm Respiratory: Yes: CTA Bilaterally ...Palpate: Yes: Soft. No: Firm/Rigid, Guarding, Hepatomegaly, Mass, Pulsatile Mass, Splenomegaly, Tenderness Labs: CBC, BMP 07/19/16 16:10 07/19/16 06:00 INR, PTT INR 1.21 (0.82-1.09) H 07/14/16 05:05 Problem List - Problems (1) GI bleed Assessment/Plan: minimal etiology unclear R> give vit K, will observe for now advance diet in am if no bleeding Code(s): K92.2 - GASTROINTESTINAL HEMORRHAGE, UNSPECIFIED (2) Diverticular hemorrhage Code(s): K57.31 - DVRTCLOS OF LG INT W/O PERFORATION OR ABSCESS W BLEEDING
[2016-07-19] MEDS ORDERED: PHYTONADIONE 10 MG/1 ML AMP IM ONE ×2 (19:05→22:00)
[2016-07-20] MEDS: INSULIN SLIDING SCALE (NOVOLOG) 1 VIAL SQ SCH ×3 (06:22→17:16)
[2016-07-20 07:21] LABS: MCH 29.4 pg (25.7-33.7); MCHC 33.7 g/dl (32.0-35.9); MEAN CELL VOLUME 87.1 fl (80-96); MEAN PLT VOLUME 8.3 fl (7.5-11.1); PLATELET COUNT 213 K/MM3 (134-434); RDW 14.1 % (11.9-15.9); WHITE BLOOD COUNT 8.4 K/mm3 (4.0-10.0)
[2016-07-20 07:44] LABS: CALCIUM 8.2 mg/dL (8.5-10.1); COCKROFT - GAULT 88.86; CREATININE 0.8 mg/dL (0.7-1.3)
[2016-07-20] MEDS ORDERED: PT OWN MED DRAWER 7, Y5N ONE (09:32)
[2016-07-20] MEDS: CARVEDILOL 25 MG TABLET (FP) PO SCH ×2 (09:34→22:54)
[2016-07-20] MEDS: PANTOPRAZOLE SODIUM 40 MG/100 ML PRE-DOCKED IVPB SCH (09:34)
[2016-07-20] MEDS: ERTAPENEM SODIUM 1 GM in SODIUM CHLORIDE 50 ML IVPB SCH (10:41)
[2016-07-20] MEDS: TRIAMCINOLONE ACET 0.1% CREAM 15 GM TUBE TP SCH (10:42)
--- NOTE | 2016-07-20 11:34 | PN ---
Progress Note, Physician Chief Complaint: had dark colored stools yesterday and today no abd pain no dizziness - Current Medication List Current Medications: Active Medications Acetaminophen (Tylenol -) 650 mg PO Q6H PRN PRN Reason: FEVER OR PAIN Last Admin: 07/19/16 17:51 Dose: 650 mg Carvedilol (Coreg -) 25 mg PO BID [facility] Last Admin: 07/20/16 09:34 Dose: 25 mg Ertapenem 1 gm/ Sodium (Chloride) 50 mls @ 50 mls/hr IVPB DAILY [facility] PRN Reason: Protocol Last Admin: 07/20/16 10:41 Dose: 50 mls/hr Insulin Aspart (Novolog Vial Sliding Scale -) 1 vial SQ TIDAC [facility] PRN Reason: Protocol Last Admin: 07/20/16 11:27 Dose: Not Given Pantoprazole Sodium (Protonix 40mg Ivpb (Pre-Docked)) 40 mg IVPB DAILY [facility] Last Admin: 07/20/16 09:34 Dose: 40 mg Triamcinolone Acetonide (Aristocort 0.1% Cream -) 1 applic TP DAILY [facility] Last Admin: 07/20/16 10:42 Dose: 1 applic - Objective Vital Signs: Vital Signs Temperature 98.3 F 07/20/16 05:58 Pulse Rate 78 07/20/16 05:58 Respiratory Rate 18 07/20/16 05:58 Blood Pressure 121/68 07/20/16 05:58 O2 Sat by Pulse Oximetry (%) 97 07/19/16 21:00 Constitutional: Yes: No Distress, Calm Cardiovascular: Yes: Regular Rate and Rhythm Respiratory: Yes: CTA Bilaterally Gastrointestinal: Yes: Normal Bowel Sounds, Soft. 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 teacher insulin use: without mcc use Qualified Code(s): E11.9 - Type 2 diabetes mellitus without complications (3) Hypertension Code(s): I10 - ESSENTIAL (PRIMARY) HYPERTENSION Qualifiers: Hypertension type: essential hypertension Qualified Code(s): I10 - Essential (primary) hypertension (4) Melena Code(s): K92.1 - MELENA (5) Bacteremia due to Gram-negative bacteria Code(s): R78.81 - BACTEREMIA (6) Acute blood loss anemia Code(s): D62 - ACUTE POSTHEMORRHAGIC ANEMIA Assessment/Plan PLAN Pt on liquid diet on iv antibiotics Protonix GI follow up spoke with son repeat blood cultures pending DVT prophylaxis-- SCD
--- NOTE | 2016-07-20 13:54 | PN ---
Progress Note (short form) - Note Progress Note: no abdominal pain or cramps 1 episode of blood in stools no fevers Vital Signs Period Temp Pulse Resp BP Sys/Mcgill Pulse Ox Last 24 Hr 97.8 F-100 F 68-82 18-18 117-157/66-68 97-98 cor-rrr lungs clear abd soft,nt ext no edema CBC, BMP 07/20/16 06:10 07/20/16 06:10 a/p enterobacter bacteremia- continue ertapenem, day #4 antibiotics diverticular bleed- repeat cbc today, GI g/u
[2016-07-20 17:01] LABS: MCH 28.9 pg (25.7-33.7); MCHC 33.6 g/dl (32.0-35.9); MEAN CELL VOLUME 86.2 fl (80-96); MEAN PLT VOLUME 8.1 fl (7.5-11.1); PLATELET COUNT 259 K/MM3 (134-434); RDW 13.8 % (11.9-15.9); WHITE BLOOD COUNT 8.7 K/mm3 (4.0-10.0)
--- NOTE | 2016-07-20 17:16 | PN ---
GI Progress Note Subjective: no abdominal pain, no rectal bleeding since this mnorning, vit K given last night - Objective Vital Signs: Vital Signs Temperature 99.3 F 07/20/16 15:11 Pulse Rate 77 07/20/16 15:11 Respiratory Rate 20 07/20/16 15:11 Blood Pressure 110/58 07/20/16 15:11 O2 Sat by Pulse Oximetry (%) 98 07/20/16 09:00 Constitutional: Well Nourished Eyes: Yes: Conjunctiva Clear, Occular Prosthesis Neck: Yes: Supple Cardiovascular: Yes: Regular Rate and Rhythm Respiratory: Yes: CTA Bilaterally ...Palpate: Yes: Soft. No: Firm/Rigid, Guarding, Hepatomegaly, Mass, Pulsatile Mass, Splenomegaly, Tenderness Labs: CBC, BMP 07/20/16 16:45 07/20/16 06:10 INR, PTT INR 1.21 (0.82-1.09) H 07/14/16 05:05 Problem List - Problems (1) GI bleed Assessment/Plan: --resolving R> advance diet Code(s): K92.2 - GASTROINTESTINAL HEMORRHAGE, UNSPECIFIED (2) Diverticular hemorrhage Code(s): K57.31 - DVRTCLOS OF LG INT W/O PERFORATION OR ABSCESS W BLEEDING
[2016-07-21] MEDS: INSULIN SLIDING SCALE (NOVOLOG) 1 VIAL SQ SCH ×3 (06:13→17:28)
[2016-07-21 07:27] LABS: MCH 29.4 pg (25.7-33.7); MCHC 34.2 g/dl (32.0-35.9); MEAN CELL VOLUME 85.9 fl (80-96); PLATELET COUNT 264 K/MM3 (134-434); RDW 13.7 % (11.9-15.9); WHITE BLOOD COUNT 11.8 K/mm3 (4.0-10.0)
--- NOTE | 2016-07-21 09:57 | PN ---
Progress Note, Physician Chief Complaint: no bm today As per nurse- last night had dark brown stools No abd pain Has pain and swelling in left arm- where his IV line was- stated it was swollen when he was in ICU - Current Medication List Current Medications: Active Medications Acetaminophen (Tylenol -) 650 mg PO Q6H PRN PRN Reason: FEVER OR PAIN Last Admin: 07/19/16 17:51 Dose: 650 mg Carvedilol (Coreg -) 25 mg PO BID [facility] Last Admin: 07/20/16 22:54 Dose: 25 mg Ertapenem 1 gm/ Sodium (Chloride) 50 mls @ 50 mls/hr IVPB DAILY [facility] PRN Reason: Protocol Last Admin: 07/20/16 10:41 Dose: 50 mls/hr Insulin Aspart (Novolog Vial Sliding Scale -) 1 vial SQ TIDAC [facility] PRN Reason: Protocol Last Admin: 07/21/16 06:13 Dose: Not Given Pantoprazole Sodium (Protonix 40mg Ivpb (Pre-Docked)) 40 mg IVPB DAILY [facility] Last Admin: 07/20/16 09:34 Dose: 40 mg Triamcinolone Acetonide (Aristocort 0.1% Cream -) 1 applic TP DAILY [facility] Last Admin: 07/20/16 10:42 Dose: 1 applic - Objective Vital Signs: Vital Signs Temperature 98.1 F 07/21/16 06:42 Pulse Rate 72 07/21/16 06:42 Respiratory Rate 18 07/21/16 06:42 Blood Pressure 113/61 07/21/16 06:42 O2 Sat by Pulse Oximetry (%) 99 07/20/16 22:05 Constitutional: Yes: No Distress Cardiovascular: Yes: Regular Rate and Rhythm Respiratory: Yes: CTA Bilaterally Gastrointestinal: Yes: Normal Bowel Sounds, Soft, Abdomen, Obese. No: Distention, Tenderness Extremities: Yes: Other (left arm-- cubital region- erythema and warm, edema over entire left arm and left hand , difficult to bend the arm) Edema: No Labs: CBC, BMP 07/21/16 06:00 07/20/16 06:10 INR, PTT INR 1.21 (0.82-1.09) H 07/14/16 05:05 Problem List - Problems (1) Rectal bleeding Code(s): K62.5 - HEMORRHAGE OF ANUS AND RECTUM (2) Diabetes Code(s): E11.9 - TYPE 2 DIABETES MELLITUS WITHOUT COMPLICATIONS Qualifiers: Diabetes mellitus type: type 2 Diabetes mellitus complication status: without complication Diabetes mellitus [facility] insulin use: without moth exterminator use Qualified Code(s): E11.9 - Type 2 diabetes mellitus without complications (3) Hypertension Code(s): I10 - ESSENTIAL (PRIMARY) HYPERTENSION Qualifiers: Hypertension type: essential hypertension Qualified Code(s): I10 - Essential (primary) hypertension (4) Melena Code(s): K92.1 - MELENA (5) Bacteremia due to Gram-negative bacteria Code(s): R78.81 - BACTEREMIA (6) Acute blood loss anemia Code(s): D62 - ACUTE POSTHEMORRHAGIC ANEMIA (7) Phlebitis Code(s): I80.9 - PHLEBITIS AND THROMBOPHLEBITIS OF UNSPECIFIED SITE Assessment/Plan PLAN Pt on regular diet on iv antibiotics, repeat cultures negative Protonix GI follow up check sono of left arm elevate left arm, warm soaks DVT prophylaxis-- SCD
[2016-07-21] MEDS ORDERED: PT OWN MED DRAWER 7, Y5N ONE (10:13)
[2016-07-21] MEDS: CARVEDILOL 25 MG TABLET (FP) PO SCH ×2 (10:20→23:01)
[2016-07-21] MEDS: ERTAPENEM SODIUM 1 GM in SODIUM CHLORIDE 50 ML IVPB SCH (10:21)
[2016-07-21] MEDS: PANTOPRAZOLE SODIUM 40 MG/100 ML PRE-DOCKED IVPB SCH (11:07)
[2016-07-21] MEDS ORDERED: CARVEDILOL 12.5 MG TABLET (FP) PO ONE (12:00)
[2016-07-21] MEDS: TRIAMCINOLONE ACET 0.1% CREAM 15 GM TUBE TP SCH (12:08)
--- NOTE | 2016-07-21 14:57 | PN ---
Progress Note, Physician Chief Complaint: ID Complains fo pain swelling of the left arm Ertepenem - Current Medication List Current Medications: Active Medications Acetaminophen (Tylenol -) 650 mg PO Q6H PRN PRN Reason: FEVER OR PAIN Last Admin: 07/19/16 17:51 Dose: 650 mg Carvedilol (Coreg -) 25 mg PO BID [facility] Last Admin: 07/20/16 22:54 Dose: 25 mg Ertapenem 1 gm/ Sodium (Chloride) 50 mls @ 50 mls/hr IVPB DAILY [facility] PRN Reason: Protocol Last Admin: 07/21/16 10:21 Dose: 50 mls/hr Insulin Aspart (Novolog Vial Sliding Scale -) 1 vial SQ TIDAC [facility] PRN Reason: Protocol Last Admin: 07/21/16 12:01 Dose: Not Given Pantoprazole Sodium (Protonix 40mg Ivpb (Pre-Docked)) 40 mg IVPB DAILY [facility] Last Admin: 07/21/16 11:07 Dose: 40 mg Triamcinolone Acetonide (Aristocort 0.1% Cream -) 1 applic TP DAILY [facility] Last Admin: 07/21/16 12:08 Dose: 1 applic - Objective Vital Signs: Vital Signs Temperature 98.1 F 07/21/16 14:00 Pulse Rate 69 07/21/16 14:00 Respiratory Rate 18 07/21/16 14:00 Blood Pressure 115/64 07/21/16 14:00 O2 Sat by Pulse Oximetry (%) 100 07/21/16 12:17 Constitutional: Yes: Well Nourished, No Distress Eyes: Yes: WNL, Conjunctiva Clear HENT: Yes: WNL, Atraumatic Neck: Yes: WNL, Supple Cardiovascular: Yes: Regular Rate and Rhythm, S1, S2. No: Murmur Respiratory: Yes: WNL, Regular, CTA Bilaterally Gastrointestinal: Yes: WNL, Normal Bowel Sounds, Soft. No: Tenderness, Tenderness, Epigastrium Extremities: Yes: Other (Swelling left arm with phlebitis) Labs: CBC, BMP 07/21/16 06:00 07/20/16 06:10 INR, PTT INR 1.21 (0.82-1.09) H 07/14/16 05:05 Problem List - Problems (1) Bacteremia due to Gram-negative bacteria Code(s): R78.81 - BACTEREMIA (2) Sepsis Code(s): A41.9 - SEPSIS, UNSPECIFIED ORGANISM Assessment/Plan Microbiology 07/17/16 08:40 Blood - Peripheral Venous Blood Culture - Final Enterobacter Cloacae 07/16/16 18:38 Urine - Urine Clean Catch Urine Culture - Final Contaminated: Please Repeat 07/16/16 16:55 Blood - Peripheral Venous Blood Culture - Final Enterobacter Cloacae 07/16/16 16:55 Blood - Peripheral Venous Blood Culture - Final Enterobacter Cloacae Laboratory Tests 07/21/16 06:00 WBC 11.8 H D Hgb 8.7 L Hct 25.5 L Plt Count 264 Assessment Enterobacter bacteremia pansensitive New phlebitis left arm with thrombosis superficial Plan Inducible resistance of Enterobacter with Ceftriaxone expected but Cefepime should be fine Could change to po Levofloxacin Warm soak and elevate hand Anuja SULLIVAN
[2016-07-22] MEDS: INSULIN SLIDING SCALE (NOVOLOG) 1 VIAL SQ SCH ×3 (06:01→17:32)
--- NOTE | 2016-07-22 09:03 | PN ---
Progress Note (short form) - Note Progress Note: SUBJECTIVE: Patient seen and examined. Chart reviewed. Comfortable. Sitting in the chair. Wants to go home. OBJECTIVE: Vital Signs 07/22/16 06:00 Temperature 98.5 F Pulse Rate 74 Respiratory 18 Rate Blood Pressure 104/59 Intake & Output 07/21/16 07/22/16 07/22/16 23:59 07:59 15:59 Weight 77.02 kg Other: Voiding Method Toilet Toilet # Unmeasured Voids Void 1 1 Weight Measurement Method Chair Scale Active Medications Acetaminophen (Tylenol -) 650 mg PO Q6H PRN PRN Reason: FEVER OR PAIN Last Admin: 07/19/16 17:51 Dose: 650 mg Carvedilol (Coreg -) 12.5 mg PO DAILY [facility] Ertapenem 1 gm/ Sodium (Chloride) 50 mls @ 50 mls/hr IVPB DAILY [facility] PRN Reason: Protocol Last Admin: 07/21/16 10:21 Dose: 50 mls/hr Insulin Aspart (Novolog Vial Sliding Scale -) 1 vial SQ TIDAC [facility] PRN Reason: Protocol Last Admin: 07/22/16 06:01 Dose: Not Given Pantoprazole Sodium (Protonix 40mg Ivpb (Pre-Docked)) 40 mg IVPB DAILY [facility] Last Admin: 07/21/16 11:07 Dose: 40 mg Triamcinolone Acetonide (Aristocort 0.1% Cream -) 1 applic TP DAILY [facility] Last Admin: 07/21/16 12:08 Dose: 1 applic CBC, BMP 07/21/16 06:00 07/20/16 06:10 Laboratory Results - last 24 hr 07/18/16 07/21/16 07/21/16 20:20 11:18 16:19 POC Glucometer 147 131 Crossmatch See Detail 07/21/16 07/22/16 21:48 05:57 POC Glucometer 114 97 Crossmatch Microbiology 07/17/16 08:45 Blood Culture - Final Blood - Peripheral Venous NO GROWTH AFTER 5 DAYS INCUBATION 07/19/16 16:10 Blood Culture - Preliminary Blood - Peripheral Venous NO GROWTH OBTAINED AFTER 48 HOURS, INCUBATION TO CONTINUE FOR 3 DAYS. 07/19/16 16:10 Blood Culture - Preliminary Blood - Peripheral Venous NO GROWTH OBTAINED AFTER 48 HOURS, INCUBATION TO CONTINUE FOR 3 DAYS. PHYSICAL EXAMINATION: Constitutional: Yes: No Distress Cardiovascular: Yes: Regular Rate and Rhythm Respiratory: Yes: CTA Bilaterally Gastrointestinal: Yes: Normal Bowel Sounds, Soft, Abdomen, Obese. No: Distention, Tenderness Extremities: Yes: Other (left arm-- cubital region- erythema and warm, edema over entire left arm and left hand) Problem List - Problems (1) Rectal bleeding Code(s): K62.5 - HEMORRHAGE OF ANUS AND RECTUM (2) Diabetes Code(s): E11.9 - TYPE 2 DIABETES MELLITUS WITHOUT COMPLICATIONS Qualifiers: Diabetes mellitus type: type 2 Diabetes mellitus complication status: without complication Diabetes mellitus senior care insulin use: without senior care use Qualified Code(s): E11.9 - Type 2 diabetes mellitus without complications (3) Hypertension Code(s): I10 - ESSENTIAL (PRIMARY) HYPERTENSION Qualifiers: Hypertension type: essential hypertension Qualified Code(s): I10 - Essential (primary) hypertension (4) Melena Code(s): K92.1 - MELENA (5) Bacteremia due to Gram-negative bacteria Code(s): R78.81 - BACTEREMIA (6) Acute blood loss anemia Code(s): D62 - ACUTE POSTHEMORRHAGIC ANEMIA (7) Phlebitis Code(s): I80.9 - PHLEBITIS AND THROMBOPHLEBITIS OF UNSPECIFIED SITE ASSESSMENT & PLAN: - Continue antibiotics. - Enterobacteremia - Warm socks to left arm. - Ultrasound negative for DVT. - Discharge on PO antibiotics in the AM ? - ID to follow. - Will discuss. Documentation prepared by Patt Flores, acting as a certified court/medical interpreter for Nathan Sherwood MD.
[2016-07-22] MEDS: ERTAPENEM SODIUM 1 GM in SODIUM CHLORIDE 50 ML IVPB SCH (10:25)
[2016-07-22] MEDS: PANTOPRAZOLE SODIUM 40 MG/100 ML PRE-DOCKED IVPB SCH (10:28)
[2016-07-22] MEDS: CARVEDILOL 12.5 MG TABLET (FP) PO SCH (10:28)
[2016-07-22] MEDS: TRIAMCINOLONE ACET 0.1% CREAM 15 GM TUBE TP SCH (10:30)
--- NOTE | 2016-07-22 14:50 | PN ---
Progress Note (short form) - Note Progress Note: No new GI bleeding Phlebitis L arm Agree with d/c plan tomorrow barring unforeseen problems d/w Dr Licea Will see as opt
--- NOTE | 2016-07-22 14:50 | PN ---
Progress Note, Physician Chief Complaint: ID Ertepenem day 7 antibiotics for enterobacter bacteremia - Current Medication List Current Medications: Active Medications Acetaminophen (Tylenol -) 650 mg PO Q6H PRN PRN Reason: FEVER OR PAIN Last Admin: 07/19/16 17:51 Dose: 650 mg Carvedilol (Coreg -) 12.5 mg PO DAILY [facility] Last Admin: 07/22/16 10:28 Dose: 12.5 mg Ertapenem 1 gm/ Sodium (Chloride) 50 mls @ 50 mls/hr IVPB DAILY [facility] PRN Reason: Protocol Last Admin: 07/22/16 10:25 Dose: 50 mls/hr Insulin Aspart (Novolog Vial Sliding Scale -) 1 vial SQ TIDAC [facility] PRN Reason: Protocol Last Admin: 07/22/16 13:04 Dose: Not Given Pantoprazole Sodium (Protonix 40mg Ivpb (Pre-Docked)) 40 mg IVPB DAILY [facility] Last Admin: 07/22/16 10:28 Dose: 40 mg Triamcinolone Acetonide (Aristocort 0.1% Cream -) 1 applic TP DAILY [facility] Last Admin: 07/22/16 10:30 Dose: 1 applic - Objective Vital Signs: Vital Signs Temperature 98.5 F 07/22/16 06:00 Pulse Rate 74 07/22/16 06:00 Respiratory Rate 18 07/22/16 06:00 Blood Pressure 104/59 07/22/16 06:00 O2 Sat by Pulse Oximetry (%) 99 07/21/16 21:00 Constitutional: Yes: Well Nourished, No Distress Neck: Yes: WNL, Supple Cardiovascular: Yes: WNL, Regular Rate and Rhythm, S1, S2 Respiratory: Yes: WNL, Regular, CTA Bilaterally Gastrointestinal: Yes: Soft. No: Tenderness Extremities: Yes: Erythema, Other Labs: CBC, BMP 07/21/16 06:00 07/20/16 06:10 INR, PTT INR 1.21 (0.82-1.09) H 07/14/16 05:05 Problem List - Problems (1) Bacteremia due to Gram-negative bacteria Code(s): R78.81 - BACTEREMIA (2) Sepsis Code(s): A41.9 - SEPSIS, UNSPECIFIED ORGANISM Assessment/Plan Microbiology 07/17/16 08:40 Blood - Peripheral Venous Blood Culture - Final Enterobacter Cloacae 07/16/16 18:38 Urine - Urine Clean Catch Urine Culture - Final Contaminated: Please Repeat 07/16/16 16:55 Blood - Peripheral Venous Blood Culture - Final Enterobacter Cloacae 07/16/16 16:55 Blood - Peripheral Venous Blood Culture - Final Enterobacter Cloacae Laboratory Tests 07/21/16 06:00 WBC 11.8 H D RBC 2.97 L Hgb 8.7 L Plt Count 264 Assessment Enterobacter bacteremia Phlebitis with superficail thrombosis of the left arm vein Plan Warm soaks to arm continue Levofloxacin orally 500mg daily 5 days discharge arjun Licea MD
[2016-07-23] MEDS: INSULIN SLIDING SCALE (NOVOLOG) 1 VIAL SQ SCH ×2 (06:53→12:03)
[2016-07-23 07:39] LABS: BASOPHIL 0.6 % (0-2.0); EOSINOPHIL 2.4 % (0-4.5); MCH 29.1 pg (25.7-33.7); MCHC 33.8 g/dl (32.0-35.9); MEAN CELL VOLUME 86.1 fl (80-96); MEAN PLT VOLUME 7.9 fl (7.5-11.1); NEUTROPHILS 68.6 % (42.8-82.8); PLATELET COUNT 415 K/MM3 (134-434); RDW 14.2 % (11.9-15.9); WHITE BLOOD COUNT 11.1 K/mm3 (4.0-10.0)
[2016-07-23 08:07] LABS: ALBUMIN 2.3 g/dl (3.4-5.0); ALK PHOS 87 U/L (45-117); ANION GAP 10 (8-16); BILIRUBIN,TOTAL 0.3 mg/dL (0.2-1.0); CO2 30 mmol/L (21-32); COCKROFT - GAULT 76.89; CREATININE 0.9 mg/dL (0.7-1.3); GLUCOSE,RANDOM 95 mg/dL (74-106); SGOT/AST 37 U/L (15-37); SGPT/ALT 44 U/L (12-78); TOT PROT 6.3 g/dl (6.4-8.2)
[2016-07-23] MEDS ORDERED: PT OWN MED DRAWER 7, Y5N ONE (10:07)
[2016-07-23] MEDS: ERTAPENEM SODIUM 1 GM in SODIUM CHLORIDE 50 ML IVPB SCH (10:15)
[2016-07-23] MEDS: CARVEDILOL 12.5 MG TABLET (FP) PO SCH (10:17)
[2016-07-23] MEDS: TRIAMCINOLONE ACET 0.1% CREAM 15 GM TUBE TP SCH (10:18)
[2016-07-23] MEDS: PANTOPRAZOLE SODIUM 40 MG/100 ML PRE-DOCKED IVPB SCH (10:59)
--- NOTE | 2016-07-23 11:42 | DS ---
Physical Examination Vital Signs: Vital Signs Temperature 97.8 F 07/23/16 06:49 Pulse Rate 70 07/23/16 06:49 Respiratory Rate 18 07/23/16 06:49 Blood Pressure 117/63 07/23/16 06:49 O2 Sat by Pulse Oximetry (%) 98 07/22/16 21:00 Findings/Remarks: dictated Labs: CBC, BMP 07/23/16 06:00 07/23/16 06:00 Discharge Summary Reason For Visit: HYPERTENSION DIABETES MELENA Current Active Problems Acute blood loss anemia (Acute) Bacteremia due to Gram-negative bacteria (Acute) Diabetes (Acute) Diverticular hemorrhage (Acute) Diverticulosis (Acute) GI bleed (Acute) History of CVA (cerebrovascular accident) (Acute) Hypertension (Acute) Melena (Acute) Phlebitis (Acute) Rectal bleeding (Acute) Sepsis (Acute) - Instructions Referrals: Elliott Murdock MD [Primary Care Provider] - - Home Medications Comprehensive Discharge Medication List: Ambulatory Orders Amlodipine Besylate/Benazepril [Lotrel 5-40 mg Capsule] 1 each PO DAILY Carvedilol [Coreg -] 25 mg PO BID 07/13/16 Esomeprazole Magnesium [Nexium 24Hr] 40 mg PO DAILY 07/13/16 Multivitamins [Multivit ([facility] Formulary)] 1 tab PO DAILY 07/13/16 Sitagliptin Phosphate [Januvia -] 100 mg PO DAILY@0700 07/13/16 Triamcinolone 0.1% Lotion [Aristocort 0.1% Lotion -] 1 applic TP DAILY 07/13/16 Acetaminophen [Tylenol .Regular Strength -] 650 mg PO Q6H PRN #0 tablet Levofloxacin [Levaquin] 500 mg PO DAILY #7 tablet 07/23/16
[2016-07-23 11:53] VITALS: BP 113/64; PULSE 79; TEMP 98
--- NOTE | 2016-07-23 12:01 | DS ---
DATE OF ADMISSION: 07/13/2016 DATE OF DISCHARGE: 07/23/2016 This patient, a 76-year-old gentleman who is a patient of Dr. Murdock, was admitted due to rectal bleed. Patient had past medical history of diverticulitis, stomach ulcer, CVA in 2004. Patient admitted to intensive care unit due to bleeding and during the stay patient was transfused multiple units of blood. Patient followed by GI. Workup showed diverticular bleed and clipping was placed by Dr. Delcid. Patient eventually stabilized and sent to the floor. Patient's hospital course complicated by gram-negative bacteremia which eventually found out to be Enterobacter cloacae. Patient also developed left upper extremity redness and swelling at the site of IV. Patient treated with . ID consultation was taken. Ice packs were applied to left upper extremity. Repeat cultures negative. Patient's bleeding now stopped. Hemoglobin is 8 g. Patient wants to go home today. Patient is stable enough to be discharged today. On examination today, he is awake, comfortable, and alert. His vitals are stable. Blood pressure 117/63, pulse 70, respiration 14, he is afebrile. His neck is supple. Lungs are clear. Abdomen is soft. Extremities: Left upper extremity swelling. Neurologically, he is alert and awake. As today's labs, as I mentioned hemoglobin 8 g. Yesterday it was 8.7. Chemistries were unremarkable. In summary, patient was admitted due to GI bleed, found to have diverticular bleed, status post clipping. Hospital course complicated by bacteria, gram negative, and treated with IV antibiotics. Now bleeding has stopped. Cleared by GI as well as ID to discharge. I also discussed case with ID today. Will discharge on p.o. antibiotics for 7 days. I instructed patient to follow with his PMD coming Monday. All the discharge medications are as per reconciliation sheet. Patient instructed to hold aspirin until further evaluation and followup by his PMD as well as GI. I had talk with patient's son and patient's also was at bedside. Patient and family in agreement. MOISES BERNAL M.D. [facility]ZAL/[id number]
== END 2016-07-23 13:56 | disposition home or self-care (01) | DRG 377 ==
LOC: JER 22:48 → JERBED 07-13 01:45 → UNDOADMIN 07-13 01:56 → JICU 07-13 15:25 → J7W 07-17 20:30
PROVIDERS: ADMIT Internal Medicine; ATTEND Internal Medicine
PROC: 30233N1 Transfusion of Nonautologous Red Blood Cells into Peripheral Vein, Percutaneous Approach (ICD-10-PCS; 2016-07-13)
PROC: 30233R1 Transfusion of Nonautologous Platelets into Peripheral Vein, Percutaneous Approach (ICD-10-PCS; 2016-07-13)
PROC: 0DBE8ZZ Excision of Large Intestine, Via Natural or Artificial Opening Endoscopic (ICD-10-PCS; 2016-07-15)
PROC: 0DJ08ZZ Inspection of Upper Intestinal Tract, Via Natural or Artificial Opening Endoscopic (ICD-10-PCS; 2016-07-15)
PROC: 0W3P8ZZ Control Bleeding in Gastrointestinal Tract, Via Natural or Artificial Opening Endoscopic (ICD-10-PCS; principal; 2016-07-15 15:00)
DX: K57.31 Diverticulosis of large intestine without perforation or abscess with bleeding (principal); A41.59 Other Gram-negative sepsis; D62 Acute posthemorrhagic anemia; E11.9 Type 2 diabetes mellitus without complications; I10 Essential (primary) hypertension; D72.829 Elevated white blood cell count, unspecified; Z88.0 Allergy status to penicillin; Z86.73 Personal history of transient ischemic attack (TIA), and cerebral infarction without residual deficits; D12.3 Benign neoplasm of transverse colon
CPT/HCPCS: 36415; 36430; 71010-TC; 80048; 80053; 81003; 82272; 82550; 83735; 84100; 84484; 85025; 85027; 85044; 85610; 85730; 86850; 86900; 86901; 86922; 87040; 87086; 87186; 88305-TC; 93005; 93010; 93971; 99285-25; P9034; P9038; P9058

== ENCOUNTER 2017-04-19 10:48 | Inpatient (IN) | payer OTHER ==
--- NOTE | 2017-04-19 11:27 | PDOC ---
History of Present Illness - General History Source: Patient Exam Limitations: No Limitations - History of Present Illness Initial Comments: 04/19/17 12:38 The patient is a 76 year old female with a significant PMH of HTN, diabetes, diverticulitis, stomach ulcer, and CVA (2004) sent by Dr. Murdock who presents to the emergency department with 1 week of slight epigastric pain. As per patients paperwork, the patient was sent to the ED for evaluation of a gallstone that Dr. Murdock believes may be blocking bile. The patient reports getting an abdominal/pelvic CT scan and CXR about 2 days ago here at [facility]. The patient denies chest pain, shortness of breath, headache and dizziness. Denies fever, chills, nausea, vomit, diarrhea and constipation. Denies dysuria, frequency, urgency and hematuria. Allergies: Penicillins Past surgical history: None reported. Social history: Social alcohol use. No reported cigarette or drug use. PCP: Dr. Murdock <Joe Pryor - Last Filed: 04/19/17 16:28> <Matt Bliss - Last Filed: 04/19/17 17:17> - General Chief Complaint: Pain Stated Complaint: EVALUATION (PCP SENT) Time Seen by Provider: 04/19/17 11:26 Past History <Joe Pryor - Last Filed: 04/19/17 16:28> - Past Medical History CVA: Yes (2004) COPD: No Diabetes: Yes (NIDDM) HTN: Yes - Suicide/Smoking/Psychosocial Hx Smoking History: Never smoked Have you smoked in the past 12 months: No Hx Alcohol Use: No Drug/Substance Use Hx: No Substance Use Type: None <Matt Bliss - Last Filed: 04/19/17 17:17> - Past Medical History Allergies/Adverse Reactions: Allergies Allergy/AdvReac Type Severity Reaction Status Date / Time Penicillins Allergy Unknown Verified 04/19/17 10:57 shellfish derived Allergy Unknown Verified 04/19/17 10:57 Home Medications: Ambulatory Orders Amlodipine Besylate/Benazepril [Lotrel 5-40 mg Capsule] 1 each PO DAILY Carvedilol [Coreg -] 25 mg PO BID 07/13/16 Esomeprazole Magnesium [Nexium 24Hr] 40 mg PO DAILY 07/13/16 Multivitamins [Multivit ([facility] Formulary)] 1 tab PO DAILY 07/13/16 Acetaminophen [Tylenol .Regular Strength -] 650 mg PO Q6H PRN #0 tablet Review of Systems - Review of Systems Able to Perform ROS?: Yes Comments:: 04/19/17 12:38 CONSTITUTIONAL: No fever, no chills, no fatigue EYES: No visual changes ENT: No ear pain, no sore throat CARDIOVASCULAR: No chest pain, no palpitations RESPIRATORY: No cough, no SOB GI: (+) Slight abdominal pain. no nausea, no vomiting, no constipation, no diarrhea GENITOURINARY: No dysuria, no frequency, no hematuria MUSKULOSKELETAL: No backpain, no joint pain, no myalgias SKIN: No rash NEURO: No headache <Joe Pryor - Last Filed: 04/19/17 16:28> *Physical Exam - Vital Signs Last Vital Signs Temp Pulse Resp BP Pulse Ox 98.0 F 76 20 124/63 98 04/19/17 10:51 04/19/17 10:51 04/19/17 10:51 04/19/17 10:51 04/19/17 10:51 - Physical Exam Comments: 04/19/17 16:28 CONSTITUTIONAL: Well-appearing; well-nourished; in no apparent distress HEAD: Normocephalic; atraumatic EYES: PERRL; EOM intact ENMT: External appears normal; normal oropharynx NECK: Supple; non-tender; no cervical lymphadenopathy CARD: Normal S1, S2; no murmurs, rubs, or gallops RESP: Normal chest excursion with respiration; breath sounds clear and equal bilaterally; no wheezes, rhonchi, or rales ABD: (+) Mild to moderate RUQ tenderness to palpation. Soft, non-distended; non- tender; no palpable organomegaly, no palpable hernias EXT: Normal ROM in all four extremities; non-tender to palpation; distal pulses intact SKIN: Warm, dry, no rash NEURO: No focal neurological deficiencies. <Joe Pryor - Last Filed: 04/19/17 16:28> - Vital Signs Last Vital Signs Temp Pulse Resp BP Pulse Ox 98.0 F 76 20 124/63 98 04/19/17 10:51 04/19/17 10:51 04/19/17 10:51 04/19/17 10:51 04/19/17 10:51 <Matt Bliss - Last Filed: 04/19/17 17:17> ED Treatment Course - LABORATORY CBC & Chemistry Diagram: 04/19/17 12:10 04/19/17 12:10 - ADDITIONAL ORDERS Additional order review: 04/19/17 12:10 RBC 3.58 L D MCV 85.6 MCHC 31.4 L RDW 15.2 MPV 8.7 D Neutrophils % 86.9 H D Lymphocytes % 4.4 L D Monocytes % 7.4 Eosinophils % 0.6 Basophils % 0.7 <Joe Pryor - Last Filed: 04/19/17 16:28> - LABORATORY CBC & Chemistry Diagram: 04/19/17 12:10 04/19/17 12:10 <Matt Bliss - Last Filed: 04/19/17 17:17> Medical Decision Making - Medical Decision Making 04/19/17 16:13 Patient is 76-year-old male who presents to the ER for persistent right upper quadrant pain and significant leukocytosis. Patient underwent outpatient CT of abdomen and pelvis which revealed thickened gallbladder wall and presence of pericholecystic fluid consistent with acute cholecystitis. In the ER, patient is awake and alert, nontoxic appearing, with mild to moderate right upper quadrant tenderness to palpation. CBC reveals significant leukocytosis with neutrophilia. CMP reveals intact LFTs. Right upper quadrant ultrasound shows significantly thickened gallbladder wall but no evidence of gallstones. Question of portal vein branch thrombosis was brought up by radiology and a CT with IV contrast will be obtained. IV antibiotics a been administered. We'll consult surgery and GI. Will admit. If portal vein thrombosis is noted, will initiate anticoagulation. 04/19/17 17:[address] Joshua of radiology the patient has a thrombosis of the anterior branch of the portal vein. Will start on Lovenox. Will consult GI. Will admit. <Matt Bliss - Last Filed: 04/19/17 17:17> *DC/Admit/Observation/Transfer - Attestations Scribe Attestion: 04/19/17 12:38 Documentation prepared by Joe Pryor, acting as medical researcher for Matt Bliss MD. <Joe Pryor - Last Filed: 04/19/17 16:28> - Discharge Dispostion Admit: Yes - Attestations Physician Attestion: 04/19/17 16:13 The documentation was prepared by the scribe under my direct supervision. I have reviewed the documentation which correctly represents the findings, medical decision-making and critical action taken by me. <Matt Bliss - Last Filed: 04/19/17 17:17> Diagnosis at time of Disposition: Acute cholecystitis - Discharge Dispostion Condition at time of disposition: Fair - Referrals Referrals: Elliott Murdock MD [Primary Care Provider] - - Patient Instructions - Post Discharge Activity
[2017-04-19] MEDS ORDERED: SODIUM CHLORIDE 500 ML IV STA ×2 (11:42→14:49)
[2017-04-19] MEDS ORDERED: LEVOFLOXACIN 750 MG IVPB 750 MG/150 ML BAG IVPB ONE ×2 (11:43→12:03)
[2017-04-19] MEDS ORDERED: METRONIDAZOLE 500 MG PREMIXED 500 MG/100 ML MG IVPB ONE ×2 (11:47→12:03)
[2017-04-19 12:18] LABS: BASO % 0.7 % (0-2.0); EOS % 0.6 % (0-4.5); HEMATOCRIT 30.6 % (35.4-49); HEMOGLOBIN 9.6 GM/dL (11.7-16.9); LYMPH % 4.4 % (8-40); MCH 26.9 pg (25.7-33.7); MCHC 31.4 g/dl (32.0-35.9); MEAN CELL VOLUME 85.6 fl (80-96); MEAN PLT VOLUME 8.7 fl (7.5-11.1); MONO % 7.4 % (3.8-10.2); NEUT % 86.9 % (42.8-82.8); PLATELET COUNT 331 K/MM3 (134-434); RBC 3.58 M/mm3 (4.00-5.60); RDW 15.2 % (11.9-15.9); WHITE BLOOD COUNT 21.2 K/mm3 (4.0-10.0)
[2017-04-19 12:40] LABS: ALBUMIN 2.2 g/dl (3.4-5.0); ANION GAP 11 (8-16); BILIRUBIN,DIRECT 0.7 mg/dL (0.0-0.2); BLOOD UREA NITROGEN 25 mg/dL (7-18); CALCIUM 8.6 mg/dL (8.5-10.1); CHLORIDE 98 mmol/L (98-107); CO2 27 mmol/L (21-32); CREATININE 1.1 mg/dL (0.7-1.3); GLUCOSE,RANDOM 114 mg/dL (74-106); POTASSIUM 3.7 mmol/L (3.5-5.1); SGOT/AST 25 U/L (15-37); SGPT/ALT 23 U/L (12-78); SODIUM 136 mmol/L (136-145)
[2017-04-19 12:42] LABS: ALK PHOS 179 U/L (45-117); TOT PROT 7.1 g/dl (6.4-8.2)
[2017-04-19 12:46] LABS: INR 1.35 (0.82-1.09); PROTHROMBIN TIME (PATIENT) 15.2 SEC (9.98-11.88)
[2017-04-19 14:01] LABS: URINE APPEARANCE CLEAR; URINE BILIRUBIN NEGATIVE (NEGATIVE); URINE BLOOD NEGATIVE (NEGATIVE); URINE COLOR DKYELLOW; URINE GLUCOSE (UA) NEGATIVE (NEGATIVE); URINE KETONE NEGATIVE (NEGATIVE); URINE LEUK ESTERASE NEGATIVE (NEGATIVE); URINE NITRITE NEGATIVE (NEGATIVE); URINE PROTEIN NEGATIVE (NEGATIVE); URINE UROBILINOGEN 4.0 E.U/dl mg/dL (0.2-1.0)
[2017-04-19] MEDS ORDERED: ENOXAPARIN NA (PORCINE) 80 MG/0.8 ML DISP.SYRIN SQ SCH (17:30)
[2017-04-19] MEDS ORDERED: ENOXAPARIN NA (PORCINE) 80 MG/0.8 ML DISP.SYRIN SQ ONE (18:14)
[2017-04-19] MEDS ORDERED: ACETAMINOPHEN 325 MG TABLET (FP) PO PRN (19:31)
[2017-04-19] MEDS: CARVEDILOL 25 MG TABLET (FP) PO SCH (22:12)
[2017-04-20] MEDS: METRONIDAZOLE 500 MG PREMIXED 500 MG/100 ML MG IVPB SCH ×3 (03:57→17:54)
[2017-04-20 05:52] VITALS: BMI 25.9
--- NOTE | 2017-04-20 08:15 | HP ---
Admitting History and Physical - Primary Care Physician PCP: Elliott Murdock - Admission History of Present Illness: The patient is a 76 year old female with a significant PMH of HTN, diabetes, diverticulitis, stomach ulcer, and CVA (2004) sent by Dr. Murdock who presents to the emergency department with 1 week of slight epigastric pain. As per patients paperwork, the patient was sent to the ED for evaluation of a gallstone that Dr. Murdock believes may be blocking bile. The patient reports getting an abdominal/pelvic CT scan and CXR about 2 days ago here at [facility]. The patient denies chest pain, shortness of breath, headache and dizziness. Denies fever, chills, nausea, vomit, diarrhea and constipation. Denies dysuria, frequency, urgency and hematuria. Allergies: Penicillins Past surgical history: None reported. Social history: Social alcohol use. No reported cigarette or drug use. PCP: Dr. 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 Cardiovascular: Yes: HTN Gastrointestinal: Yes: Diverticulitis, Peptic Ulcer Disease Endocrine: Yes: Diabetes Mellitus - Smoking History Smoking history: Never smoked Have you smoked in the past 12 months: No - Alcohol/Substance Use Hx Alcohol Use: No - Social History ADL: Independent History of Recent Travel: No Home Medications - Allergies Allergies/Adverse Reactions: Allergies Allergy/AdvReac Type Severity Reaction Status Date / Time Penicillins Allergy Unknown Verified 04/19/17 10:57 shellfish derived Allergy Unknown Verified 04/19/17 10:57 - Home Medications Home Medications: Ambulatory Orders Amlodipine Besylate/Benazepril [Lotrel 5-40 mg Capsule] 1 each PO DAILY Carvedilol [Coreg -] 25 mg PO BID 07/13/16 Esomeprazole Magnesium [Nexium 24Hr] 40 mg PO DAILY 07/13/16 Multivitamins [Multivit ([facility] Formulary)] 1 tab PO DAILY 07/13/16 Acetaminophen [Tylenol .Regular Strength -] 650 mg PO Q6H PRN #0 tablet 04/15/ 17 Family Disease History - Family Disease History Family History: Unremarkable Review of Systems - Review of Systems Constitutional: reports: Loss of Appetite Eyes: reports: No Symptoms HENT: reports: No Symptoms Neck: reports: No Symptoms Cardiovascular: reports: No Symptoms Respiratory: reports: No Symptoms Gastrointestinal: reports: Abdominal Pain Genitourinary: reports: No Symptoms Musculoskeletal: reports: No Symptoms Neurological: reports: No Symptoms Hematology/Lymphatic: reports: No Symptoms Psychiatric: reports: No Symptoms Physical Examination Vital Signs: Vital Signs Temperature 98.6 F 04/20/17 05:29 Pulse Rate 83 04/20/17 05:29 Respiratory Rate 18 04/20/17 05:29 Blood Pressure 132/68 04/20/17 05:29 O2 Sat by Pulse Oximetry (%) 98 04/19/17 10:51 Constitutional: Yes: No Distress, Calm Eyes: Yes: Conjunctiva Clear Neck: Yes: Supple Cardiovascular: Yes: Regular Rate and Rhythm Respiratory: Yes: CTA Bilaterally Gastrointestinal: Yes: Soft Edema: No Neurological: Yes: Alert Psychiatric: Yes: Alert Labs: CBC, BMP 04/19/17 12:10 04/19/17 12:10 Imaging - Results Chest X-ray: Report Reviewed Cat Scan: Report Reviewed Problem List - Problems (1) Portal vein thrombosis Code(s): I81 - PORTAL VEIN THROMBOSIS (2) Acute cholecystitis Code(s): K81.0 - ACUTE CHOLECYSTITIS (3) Hypertension Code(s): I10 - ESSENTIAL (PRIMARY) HYPERTENSION Qualifiers: Hypertension type: essential hypertension Qualified Code(s): I10 - Essential (primary) hypertension Assessment/Plan patient 76-year-old gentleman-send emergency room by his primary PMD with leukocytosis and abdominal pain workup showed acute cholecystitis and portal vein thrombosis. clinically better. Continue antibiotics IV fluids Surgical and GI consult has been requested We will consult hematology also Continue Lovenox twice a day I also discussed with patient's son on the phone Also discussed with patient's private PMD. Will follow Discussed with nursing staff also.
[2017-04-20] MEDS: D5-1/2NS+20 MEQ KCL - 20 MEQ/1,000 ML INFUS.BAG IV SCH ×2 (08:45→22:24)
[2017-04-20 10:19] LABS: BASO % 0.3 % (0-2.0); EOS % 0.9 % (0-4.5); HEMATOCRIT 28.1 % (35.4-49); HEMOGLOBIN 9.2 GM/dL (11.7-16.9); LYMPH % 6.6 % (8-40); MCH 27.5 pg (25.7-33.7); MCHC 32.7 g/dl (32.0-35.9); MEAN CELL VOLUME 84.1 fl (80-96); MEAN PLT VOLUME 7.8 fl (7.5-11.1); MONO % 8.2 % (3.8-10.2); PLATELET COUNT 368 K/MM3 (134-434); RBC 3.34 M/mm3 (4.00-5.60); RDW 15.6 % (11.9-15.9); WHITE BLOOD COUNT 15.6 K/mm3 (4.0-10.0)
[2017-04-20 10:46] LABS: CHLORIDE 101 mmol/L (98-107); POTASSIUM 3.5 mmol/L (3.5-5.1); SODIUM 134 mmol/L (136-145)
[2017-04-20] MEDS: amLODIPine BESYLATE 5 MG TABLET (FP) PO SCH (10:49)
[2017-04-20] MEDS: LISINOPRIL 20 MG TABLET (FP) PO SCH (10:49)
[2017-04-20] MEDS: ENOXAPARIN NA (PORCINE) 80 MG/0.8 ML DISP.SYRIN SQ SCH ×2 (10:49→21:57)
[2017-04-20] MEDS: CARVEDILOL 25 MG TABLET (FP) PO SCH ×2 (10:49→21:58)
[2017-04-20 11:09] LABS: ALBUMIN 1.9 g/dl (3.4-5.0); ALK PHOS 161 U/L (45-117); ANION GAP 7 (8-16); BILIRUBIN,TOTAL 1.1 mg/dL (0.2-1.0); BLOOD UREA NITROGEN 17 mg/dL (7-18); CO2 26 mmol/L (21-32); CREATININE 0.9 mg/dL (0.7-1.3); GLUCOSE,RANDOM 111 mg/dL (74-106); SGOT/AST 20 U/L (15-37); SGPT/ALT 22 U/L (12-78); TOT PROT 6.4 g/dl (6.4-8.2)
--- NOTE | 2017-04-20 11:37 | CONSULT ---
- Consultation REQUESTING PROVIDER: Estuardo Wells - General Surgery CONSULT REQUEST: We have been asked to surgically evaluate this patient for abd pain. PCP: Nathan Sherwood HPI: Called to eval 76 yo male with PMHx noted below. Pateint sent to [facility] Ed by his PCP --> Dr. Murdock for further evaluation of epigastric tenderness x1 week. While in ED, patient had the following imaging studies: 1. U/S: thickened gb wall measuring 8mm suggestive of acute villa. No stones or pericholecystic fluid identified. Suggestion of periportal edema. Normal flow in main portal vein 2. ABD CT: thrombosis involving the anterior branch of the right portal vein. Findings unchanged comared to CT from 04/17/17. Left portal vein, Main portal, splenic and superior messenteric veins are all patent. Pericholecystic edema present which could be reactive vs. acute gb process.No biliary ductal dilation. Patient was started on Lovenox 80mg SQ BID. Currently, resting comfortably. feels much better. Denies n/v/f/c, CP, SOB, QUEEN , WILLIS, change in urine color. Smoking history: Never smoked PMHx: CVA, HTN, Diverticulitis, PUD, DM PSHx: Home Meds Amlodipine Besylate/Benazepril [Lotrel 5-40 mg Capsule] 1 each PO DAILY Carvedilol [Coreg -] 25 mg PO BID 07/13/16 Esomeprazole Magnesium [Nexium 24Hr] 40 mg PO DAILY 07/13/16 Multivitamins [Multivit ([facility] Formulary)] 1 tab PO DAILY 07/13/16 Acetaminophen [Tylenol .Regular Strength -] 650 mg PO Q6H PRN #0 tablet 07/23/16 Allergies: PCN. Shellfish ROS: All systems reviewed and considered negative except for what's contained in HPI. PE: GENERAL: Awake, alert, and fully oriented, nad HEAD: NC. AT EYES: PERRL, sclera anicteric, conjunctiva clear. NECK: Normal ROM, supple without lymphadenopathy, JVD, or masses. LUNGS: cta bilat anteriorly HEART: RRR ABDOMEN: Soft, NT, ND, normoactive bowel sounds, no guarding, no rebound, no masses. No organomegaly. MUSCULOSKELETAL: No CVAT UE: 2+ pulses, warm, well-perfused. No cyanosis. Cap refill <2 seconds. No peripheral edema. LE: 2+ pulses, warm, well-perfused. No calf tenderness. No peripheral edema. NEUROLOGICAL: Normal speech, gait not observed. PSYCH: Cooperative. Good eye contact. Appropriate mood and affect. SKIN: Warm, dry, normal turgor, no rashes or lesions noted. Last Vital Signs Temp Pulse Resp BP Pulse Ox 98.6 F 83 18 132/68 98 04/20/17 05:29 04/20/17 05:29 04/20/17 05:29 04/20/17 05:29 04/19/17 10:51 Hepatic Panel Total Bilirubin 1.1 mg/dL (0.2-1.0) H 04/20/17 10:00 Direct Bilirubin 0.7 mg/dL (0.0-0.2) H 04/19/17 12:10 AST 20 U/L (15-37) 04/20/17 10:00 ALT 22 U/L (12-78) 04/20/17 10:00 Alkaline Phosphatase 161 U/L (45-117) H 04/20/17 10:00 Albumin 1.9 g/dl (3.4-5.0) L 04/20/17 10:00 CBC, BMP 04/20/17 10:00 04/20/17 10:00 INR, PTT INR 1.35 (0.82-1.09) H 04/19/17 12:10 Blood Type Blood Type B POSITIVE 04/19/17 12:10 Problem List - Problems (1) Portal vein thrombosis Assessment/Plan: 76 yo male admitted with portal vein thrombosis and possible acute cholecystitis. Feel that his pain most likely caused from the portal vein thrombosis. CT findings suggest pericholecystic edema which could be reactionary. Will order HIDA scan to r/o. Cont Lovenox 80 mg BID Pain management PRN Leukocytosis resolving Monitor Alk Phos Serial abdominal exams Tylenol for fever > 100.3F IV ABX Surgery team to cont following Above plan discussed with Dr. Wells and agrees. Code(s): I81 - PORTAL VEIN THROMBOSIS Visit type - Case Type Case Type: ED Admission - Emergency Emergency Visit: Yes ED Registration Date: 04/19/17 Care time: The patient presented to the Emergency Department on the above date and was hospitalized for further evaluation of their emergent condition. - New patient This patient is new to me today: Yes Date on this admission: 04/20/17
[2017-04-20] MEDS: LEVOFLOXACIN 500 MG IVPB 500 MG/100 ML BAG IVPB SCH (12:01)
--- NOTE | 2017-04-20 14:17 | CONSULT ---
Consult Consult Specialty:: Hematology - History of Present Illness History of Present Illness: 76 y/o male was doing well until a few weeks ago when he developed epigastric pain. He was recently discharge for bleeding diverticulum s/p control of bleeding. Absadominal ultrasound was requested and was noted to have cholecystitis. On admission he has leukocytosis. This evening the epigastric pain has subsided. He denies nause and vomiting. 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 Cardio/Vascular: Yes: HTN Gastrointestinal: Yes: Diverticulitis, Peptic Ulcer Disease Endocrine: Yes: Diabetes Mellitus - Alcohol/Substance Use Hx Alcohol Use: No - Smoking History Smoking history: Never smoked Have you smoked in the past 12 months: No - Social History ADL: Independent History of Recent Travel: No Home Medications - Allergies Allergies/Adverse Reactions: Allergies Allergy/AdvReac Type Severity Reaction Status Date / Time Penicillins Allergy Unknown Verified 04/19/17 10:57 shellfish derived Allergy Unknown Verified 04/19/17 10:57 - Home Medications Home Medications: Ambulatory Orders Amlodipine Besylate/Benazepril [Lotrel 5-40 mg Capsule] 1 each PO DAILY Carvedilol [Coreg -] 25 mg PO BID 07/13/16 Esomeprazole Magnesium [Nexium 24Hr] 40 mg PO DAILY 07/13/16 Multivitamins [Multivit ([facility] Formulary)] 1 tab PO DAILY 07/13/16 Acetaminophen [Tylenol .Regular Strength -] 650 mg PO Q6H PRN #0 tablet Review of Systems - Review of Systems Constitutional: denies: Chills, Diaphoresis, Fever, Lethargy, Loss of Appetite Eyes: denies: Blind Spots HENT: denies: Difficult Swallowing, Ear Discharge Neck: denies: Decreased ROM, Lumps, Pain on Movement Cardiovascular: denies: Chest Pain Respiratory: denies: Cough, Exercise Intolerance Gastrointestinal: reports: Abdominal Pain, Bloating. denies: Constipation, Diarrhea, Rectal Bleeding, Vomiting Neurological: reports: No Symptoms Hematology/Lymphatic: reports: No Symptoms Physical Exam Vital Signs: Vital Signs Temperature 98.0 F 04/20/17 09:10 Pulse Rate 75 04/20/17 09:10 Respiratory Rate 20 04/20/17 09:10 Blood Pressure 123/64 04/20/17 09:10 O2 Sat by Pulse Oximetry (%) 96 04/20/17 09:00 Constitutional: Yes: Well Nourished, No Distress, Calm Eyes: Yes: Conjunctiva Clear HENT: Yes: Atraumatic Neck: Yes: Supple, Trachea Midline Cardiovascular: Yes: Regular Rate and Rhythm Respiratory: Yes: Regular, CTA Bilaterally Gastrointestinal: Yes: Normal Bowel Sounds, Soft, Abdomen, Obese. No: Tenderness Musculoskeletal: Yes: WNL Extremities: Yes: WNL Edema: No Labs: CBC, BMP 04/20/17 10:00 04/20/17 10:00 Imaging - Results Cat Scan: Report Reviewed Problem List - Problems (1) Acute cholecystitis Code(s): K81.0 - ACUTE CHOLECYSTITIS (2) Portal vein thrombosis Code(s): I81 - PORTAL VEIN THROMBOSIS (3) Diabetes Code(s): E11.9 - TYPE 2 DIABETES MELLITUS WITHOUT COMPLICATIONS Qualifiers: Diabetes mellitus type: type 2 Diabetes mellitus complication status: without complication Diabetes mellitus terminal clerk insulin use: without terminal clerk use Qualified Code(s): E11.9 - Type 2 diabetes mellitus without complications Assessment/Plan New portal vein thrombosis Acute cholecystitis etiology of portal vein thrombosis though remains uncertain at this time, suspect the infectious etiology is playing a role here. For OP hypercoag w/u. will order LE US to r/o DVT CT a/p with contrast noted, no evidence of malignancy noted. reviewed his past records with GIB, will need to be cautious with anticoagulation, for now, will need for a minimum of 3months of AC, pending is tolerability/work-up. change to NOACs upon d/c d/w son in detail d/w GI
--- NOTE | 2017-04-20 19:07 | CON.GI ---
Consult Consult Specialty:: GI Reason for Consultation:: acute cholecytitis - History of Present Illness History of Present Illness: 76 y/o male was doing well until a few weeks ago when he developed epigastric pain. He was recently discharge for bleeding diverticulum s/p control of bleeding. Absadominal ultrasound was requested and was noted to have cholecystitis. On admission he has leukocytosis. This evening the epigastric pain has subsided. He denies nause and vomiting. 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: Yes: CVA Cardio/Vascular: Yes: HTN Gastrointestinal: Yes: Diverticulitis, Peptic Ulcer Disease Endocrine: Yes: Diabetes Mellitus - Alcohol/Substance Use Hx Alcohol Use: No - Smoking History Smoking history: Never smoked Have you smoked in the past 12 months: No - Social History ADL: Independent History of Recent Travel: No Home Medications - Allergies Allergies/Adverse Reactions: Allergies Allergy/AdvReac Type Severity Reaction Status Date / Time Penicillins Allergy Unknown Verified 04/19/17 10:57 shellfish derived Allergy Unknown Verified 04/19/17 10:57 - Home Medications Home Medications: Ambulatory Orders Amlodipine Besylate/Benazepril [Lotrel 5-40 mg Capsule] 1 each PO DAILY Carvedilol [Coreg -] 25 mg PO BID 07/13/16 Esomeprazole Magnesium [Nexium 24Hr] 40 mg PO DAILY 07/13/16 Multivitamins [Multivit ([facility] Formulary)] 1 tab PO DAILY 07/13/16 Acetaminophen [Tylenol .Regular Strength -] 650 mg PO Q6H PRN #0 tablet Physical Exam-GI Vital Signs: Vital Signs Temperature 97.7 F 04/20/17 17:00 Pulse Rate 72 04/20/17 17:00 Respiratory Rate 20 04/20/17 17:00 Blood Pressure 128/66 04/20/17 17:00 O2 Sat by Pulse Oximetry (%) 96 04/20/17 09:00 Constitutional: Yes: Well Nourished Eyes: Yes: Conjunctiva Clear HENT: Yes: Normocephalic Neck: Yes: Trachea Midline Cardiovascular: Yes: Regular Rate and Rhythm Respiratory: Yes: CTA Bilaterally ...Palpate: Yes: Soft. No: Firm/Rigid, Guarding, Hepatomegaly, Mass, Pulsatile Mass, Splenomegaly, Tenderness Labs: CBC, BMP 04/20/17 10:00 04/20/17 10:00 INR, PTT INR 1.35 (0.82-1.09) H 04/19/17 12:10 CBC,CMP WBC 15.6 K/mm3 (4.0-10.0) H 04/20/17 10:00 RBC 3.34 M/mm3 (4.00-5.60) L 04/20/17 10:00 Hgb 9.2 GM/dL (11.7-16.9) L 04/20/17 10:00 Hct 28.1 % (35.4-49) L 04/20/17 10:00 MCV 84.1 fl (80-96) 04/20/17 10:00 MCH 27.5 pg (25.7-33.7) 04/20/17 10:00 MCHC 32.7 g/dl (32.0-35.9) 04/20/17 10:00 RDW 15.6 % (11.9-15.9) 04/20/17 10:00 Plt Count 368 K/MM3 (134-434) 04/20/17 10:00 MPV 7.8 fl (7.5-11.1) D 04/20/17 10:00 Neutrophils % 84.0 % (42.8-82.8) H 04/20/17 10:00 Lymphocytes % 6.6 % (8-40) L D 04/20/17 10:00 Monocytes % 8.2 % (3.8-10.2) 04/20/17 10:00 Eosinophils % 0.9 % (0-4.5) 04/20/17 10:00 Basophils % 0.3 % (0-2.0) 04/20/17 10:00 Sodium 134 mmol/L (136-145) L 04/20/17 10:00 Potassium 3.5 mmol/L (3.5-5.1) 04/20/17 10:00 Chloride 101 mmol/L (98-107) 04/20/17 10:00 Carbon Dioxide 26 mmol/L (21-32) 04/20/17 10:00 Anion Gap 7 (8-16) L 04/20/17 10:00 BUN 17 mg/dL (7-18) D 04/20/17 10:00 Creatinine 0.9 mg/dL (0.7-1.3) 04/20/17 10:00 Creat Clearance w eGFR > 60 (>60) 04/20/17 10:00 Random Glucose 111 mg/dL (74-106) H 04/20/17 10:00 Calcium 8.0 mg/dL (8.5-10.1) L 04/20/17 10:00 Total Bilirubin 1.1 mg/dL (0.2-1.0) H 04/20/17 10:00 Direct Bilirubin 0.7 mg/dL (0.0-0.2) H 04/19/17 12:10 AST 20 U/L (15-37) 04/20/17 10:00 ALT 22 U/L (12-78) 04/20/17 10:00 Alkaline Phosphatase 161 U/L (45-117) H 04/20/17 10:00 Total Protein 6.4 g/dl (6.4-8.2) 04/20/17 10:00 Albumin 1.9 g/dl (3.4-5.0) L 04/20/17 10:00 Imaging - Results Cat Scan: Report Reviewed Ultrasound: Report Reviewed Problem List - Problems (1) Acute cholecystitis Assessment/Plan: R> await surgical consult for cholecystectomy Code(s): K81.0 - ACUTE CHOLECYSTITIS (2) Portal vein thrombosis Assessment/Plan: possibly secondary to acute cholecystitis R> will need to r/o hypercoaguable state Code(s): I81 - PORTAL VEIN THROMBOSIS
--- NOTE | 2017-04-20 22:32 | CONSULT ---
Consult Consult Specialty:: surgery Reason for Consultation:: ?cholecystitis - History of Present Illness Chief Complaint: abdominal pain History of Present Illness: 76 y/o male was doing well until a few weeks ago when he developed epigastric pain. He was recently discharge for bleeding diverticulum s/p control of bleeding. Abadominal ultrasound was requested and was noted to have cholecystitis. On admission he has leukocytosis. This evening the epigastric pain has subsided. He denies nause and vomiting Patient has a history of recurrent diverticulitis last significant episode in July 2016. 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 Cardio/Vascular: Yes: HTN Gastrointestinal: Yes: Diverticulitis, Peptic Ulcer Disease Endocrine: Yes: Diabetes Mellitus - Alcohol/Substance Use Hx Alcohol Use: No - Smoking History Smoking history: Never smoked Have you smoked in the past 12 months: No - Social History ADL: Independent History of Recent Travel: No Home Medications - Allergies Allergies/Adverse Reactions: Allergies Allergy/AdvReac Type Severity Reaction Status Date / Time Penicillins Allergy Unknown Verified 04/19/17 10:57 shellfish derived Allergy Unknown Verified 04/19/17 10:57 - Home Medications Home Medications: Ambulatory Orders Amlodipine Besylate/Benazepril [Lotrel 5-40 mg Capsule] 1 each PO DAILY Carvedilol [Coreg -] 25 mg PO BID 07/13/16 Esomeprazole Magnesium [Nexium 24Hr] 40 mg PO DAILY 07/13/16 Multivitamins [Multivit ([facility] Formul[facility])] 1 tab PO DAILY 07/13/16 Acetaminophen [Tylenol .Regular Strength -] 650 mg PO Q6H PRN #0 tablet Physical Exam Vital Signs: Vital Signs Temperature 97.7 F 04/20/17 17:00 Pulse Rate 72 04/20/17 17:00 Respiratory Rate 20 04/20/17 17:00 Blood Pressure 128/66 04/20/17 17:00 O2 Sat by Pulse Oximetry (%) 96 04/20/17 09:00 Labs: CBC, BMP 04/20/17 10:00 04/20/17 10:00 Imaging - Results Cat Scan: Report Reviewed, Image Reviewed Ultrasound: Report Reviewed, Image Reviewed Other: Report Reviewed, Image Reviewed (Negative HIDA) Problem List - Problems (1) Portal vein thrombosis Code(s): I81 - PORTAL VEIN THROMBOSIS Assessment/Plan 76 yr old male presenting with RUQ pain and Ellevated WBC, periportal edema and portal vein thrombosis. HIDA scan is negative . Symptoms are kai likely secondary to the acute on set of portal vein thrombosis. Agree with Hematology work up, and, in the abcsence of hypercoagulable state this is most likely portophlebitis secondary to diverticular disease. Recommend antibiotics and observation for clinical evolution. No need for surgical intervention will follow with you.
[2017-04-21] MEDS: METRONIDAZOLE 500 MG PREMIXED 500 MG/100 ML MG IVPB SCH ×3 (02:18→17:01)
[2017-04-21] MEDS: D5-1/2NS+20 MEQ KCL - 20 MEQ/1,000 ML INFUS.BAG IV SCH (07:12)
[2017-04-21 08:11] LABS: ANION GAP 6 (8-16); BLOOD UREA NITROGEN 12 mg/dL (7-18); CALCIUM 7.9 mg/dL (8.5-10.1); CHLORIDE 101 mmol/L (98-107); CO2 28 mmol/L (21-32); GLUCOSE,RANDOM 120 mg/dL (74-106); POTASSIUM 3.9 mmol/L (3.5-5.1); SGOT/AST 18 U/L (15-37); SGPT/ALT 21 U/L (12-78); SODIUM 135 mmol/L (136-145)
[2017-04-21 08:13] LABS: ALK PHOS 154 U/L (45-117); BILIRUBIN,TOTAL 0.9 mg/dL (0.2-1.0); CREATININE 0.9 mg/dL (0.7-1.3); TOT PROT 6.7 g/dl (6.4-8.2)
[2017-04-21 08:17] LABS: BASO % 0.5 % (0-2.0); EOS % 3.5 % (0-4.5); HEMATOCRIT 30.8 % (35.4-49); LYMPH % 9.1 % (8-40); MCH 27.5 pg (25.7-33.7); MCHC 32.6 g/dl (32.0-35.9); MEAN CELL VOLUME 84.5 fl (80-96); MEAN PLT VOLUME 8.4 fl (7.5-11.1); MONO % 9.7 % (3.8-10.2); NEUT % 77.2 % (42.8-82.8); PLATELET COUNT 413 K/MM3 (134-434); RBC 3.65 M/mm3 (4.00-5.60); RDW 15.3 % (11.9-15.9); WHITE BLOOD COUNT 10.9 K/mm3 (4.0-10.0)
--- NOTE | 2017-04-21 09:46 | PN ---
Progress Note, Physician History of Present Illness: pt feels better denies pain afebrile all f/u noted/ appreciated - Current Medication List Current Medications: Active Medications Acetaminophen (Tylenol -) 650 mg PO Q4H PRN PRN Reason: FEVER Amlodipine Besylate (Norvasc -) 5 mg PO DAILY [facility] Last Admin: 04/20/17 10:49 Dose: 5 mg Carvedilol (Coreg -) 25 mg PO BID [facility] Last Admin: 04/20/17 21:58 Dose: 25 mg Enoxaparin Sodium (Lovenox -) 80 mg SQ BID [facility] Last Admin: 04/20/17 21:57 Dose: 80 mg Levofloxacin (Levaquin 500 Mg Premixed Ivpb -) 500 mg in 100 mls @ 100 mls/hr IVPB DAILY [facility] Last Admin: 04/20/17 12:01 Dose: 100 mls/hr Metronidazole (Flagyl 500mg Premixed Ivpb -) 500 mg in 100 mls @ 100 mls/hr IVPB Q8H-IV [facility] Last Admin: 04/21/17 02:18 Dose: 100 mls/hr Potassium Chloride/Dextrose/Sod Cl (D5-1/2ns+20 Meq Kcl -) 20 meq in 1,000 mls @ 125 mls/hr IV ASDIR [facility] Last Admin: 04/21/17 07:12 Dose: 125 mls/hr Lisinopril (Prinivil) 40 mg PO DAILY [facility] Last Admin: 04/20/17 10:49 Dose: 40 mg - Objective Vital Signs: Vital Signs Temperature 98.2 F 04/21/17 06:00 Pulse Rate 69 04/21/17 06:00 Respiratory Rate 20 04/21/17 06:00 Blood Pressure 130/67 04/21/17 06:00 O2 Sat by Pulse Oximetry (%) 94 L 04/20/17 21:00 Constitutional: Yes: No Distress, Calm Eyes: Yes: Conjunctiva Clear Neck: Yes: Supple Cardiovascular: Yes: Regular Rate and Rhythm Respiratory: Yes: CTA Bilaterally Gastrointestinal: Yes: Soft, Tenderness (mild - ruq-- no r/r) Edema: No Neurological: Yes: Alert Psychiatric: Yes: Alert Labs: CBC, BMP 04/21/17 06:30 04/21/17 06:30 INR, PTT INR 1.35 (0.82-1.09) H 04/19/17 12:10 Problem List - Problems (1) Portal vein thrombosis Code(s): I81 - PORTAL VEIN THROMBOSIS (2) Acute cholecystitis Code(s): K81.0 - ACUTE CHOLECYSTITIS (3) Hypertension Code(s): I10 - ESSENTIAL (PRIMARY) HYPERTENSION Qualifiers: Hypertension type: essential hypertension Qualified Code(s): I10 - Essential (primary) hypertension Assessment/Plan Clinically better continue abx hida scan -ve will discuss with consultants will follow
[2017-04-21] MEDS: amLODIPine BESYLATE 5 MG TABLET (FP) PO SCH (09:58)
[2017-04-21] MEDS: LEVOFLOXACIN 500 MG IVPB 500 MG/100 ML BAG IVPB SCH (09:58)
[2017-04-21] MEDS: ENOXAPARIN NA (PORCINE) 80 MG/0.8 ML DISP.SYRIN SQ SCH ×2 (09:58→21:23)
[2017-04-21] MEDS: CARVEDILOL 25 MG TABLET (FP) PO SCH ×2 (09:58→21:23)
[2017-04-21] MEDS: LISINOPRIL 20 MG TABLET (FP) PO SCH (09:58)
--- NOTE | 2017-04-21 12:57 | PN ---
Progress Note (short form) - Note Progress Note: Patient seen and examined Spoke with son via phone at length with multiple questions asked and answered to the best of my ability . Seen by GI, Sherry and OFE peformed. NO obvious malignancy on CT. Negative HIDA against acute cholecystitis. Possibilty of diverticulits as etiology for PVT raised . Complains only of minimal abdominal pains. Last Vital Signs Temp Pulse Resp BP Pulse Ox 98.2 F 69 20 130/67 94 L 04/21/17 06:00 04/21/17 06:00 04/21/17 06:00 04/21/17 06:00 04/20/17 21:00 HEENT: [place]A, EOM Intact Oropharynx: No thrush, No mucositis Cor: RSR, No murmurs, No gallops Lungs: Clear to P&A Abd: Soft, Normal bowel sounds, No organomegaly Ext:No significant edema Skin: No rashes, Integument intact CBC, BMP 04/21/17 06:30 04/21/17 06:30 Current Medications Generic Name Dose Route Start Last Admin Trade Name Freq PRN Reason Stop Dose Admin Acetaminophen 650 mg 04/19/17 19:31 Tylenol - PO Q4H PRN FEVER Amlodipine Besylate 5 mg 04/20/17 10:00 04/21/17 09:58 Norvasc - PO 5 mg DAILY [facility] Administration Carvedilol 25 mg 04/19/17 22:00 04/21/17 09:58 Coreg - PO 25 mg BID [facility] Administration Enoxaparin Sodium 80 mg 04/20/17 10:00 04/21/17 09:58 Lovenox - SQ 80 mg BID [facility] Administration Levofloxacin 500 mg in 100 mls @ 100 mls/hr 04/20/17 10:00 04/21/17 09:58 Levaquin 500 Mg Premixed Ivpb - IVPB 100 mls/hr DAILY [facility] Administration Metronidazole 500 mg in 100 mls @ 100 mls/hr 04/20/17 02:00 04/21/17 11:54 Flagyl 500mg Premixed Ivpb - IVPB 100 mls/hr Q8H-IV [facility] Administration Potassium Chloride/Dextrose/Sod Cl 20 meq in 1,000 mls @ 125 mls/hr 04/20/17 08:30 04/21/17 07:12 D5-1/2ns+20 Meq Kcl - IV 125 mls/hr ASDIR [facility] Administration Lisinopril 40 mg 04/20/17 10:00 04/21/17 09:58 Prinivil PO 40 mg DAILY [facility] Administration Impression: Portal vein thrombosis Hypertension ?? infectious etiology for PVT i.e. diverticulitis H/O ulcer disease and prior bleeding on Plavix therapy Plan: Monitor carefully in view of history of GI bleeding and ulcer disease in past Can consider change of lovenox to NOAC Thrombophilia work up as out patient. Antibiotics for now.
--- NOTE | 2017-04-21 18:11 | PN ---
GI Progress Note Subjective: above events reviewed, etiology of portal vein thrombosis unclear, galldder edema in the abscence of cystic duct obstruction is worrisome possibly this is secondary to acalculous cholecystits although patient now clinically improved - Objective Vital Signs: Vital Signs Temperature 98.2 F 04/21/17 14:41 Pulse Rate 66 04/21/17 14:41 Respiratory Rate 16 04/21/17 14:41 Blood Pressure 132/70 04/21/17 14:41 O2 Sat by Pulse Oximetry (%) 94 L 04/21/17 09:00 Constitutional: Well Nourished Eyes: Yes: Conjunctiva Clear HENT: Yes: Normocephalic Neck: Yes: Trachea Midline Cardiovascular: Yes: Regular Rate and Rhythm Respiratory: Yes: CTA Bilaterally ...Palpate: Yes: Soft. No: Firm/Rigid, Guarding, Hepatomegaly, Mass, Pulsatile Mass, Splenomegaly, Tenderness Labs: CBC, BMP 04/21/17 06:30 04/21/17 06:30 INR, PTT INR 1.35 (0.82-1.09) H 04/19/17 12:10 Problem List - Problems (1) Acute cholecystitis Assessment/Plan: possbily acalculous R> serial ultrasound to r/o GB cacer as an outpatient cea level advance diet Code(s): K81.0 - ACUTE CHOLECYSTITIS (2) Portal vein thrombosis Code(s): I81 - PORTAL VEIN THROMBOSIS
[2017-04-22] MEDS: D5-1/2NS+20 MEQ KCL - 20 MEQ/1,000 ML INFUS.BAG IV SCH ×2 (00:01→09:07)
[2017-04-22] MEDS: METRONIDAZOLE 500 MG PREMIXED 500 MG/100 ML MG IVPB SCH ×3 (01:42→17:23)
[2017-04-22] MEDS: ENOXAPARIN NA (PORCINE) 80 MG/0.8 ML DISP.SYRIN SQ SCH ×2 (09:05→21:22)
[2017-04-22] MEDS: amLODIPine BESYLATE 5 MG TABLET (FP) PO SCH (09:06)
[2017-04-22] MEDS: LISINOPRIL 20 MG TABLET (FP) PO SCH (09:06)
[2017-04-22] MEDS: CARVEDILOL 25 MG TABLET (FP) PO SCH ×2 (09:06→21:22)
[2017-04-22] MEDS: LEVOFLOXACIN 500 MG IVPB 500 MG/100 ML BAG IVPB SCH (10:15)
--- NOTE | 2017-04-22 13:38 | PN ---
Progress Note (short form) - Note Progress Note: Pt seen/ examined continue to improve feels well. all f/u noted denies pain Vital Signs Temp 98.1 F 04/22/17 09:00 Pulse 62 04/22/17 09:00 Resp 16 04/22/17 09:00 BP 136/75 04/22/17 09:00 Pulse Ox 98 04/22/17 09:00 Intake & Output 04/21/17 04/22/17 04/22/17 23:59 11:59 23:59 Intake Total 1100 1400 Output Total 600 Balance 1100 800 Intake: IV 500 750 D5-1/2NS+20 MEQ KCL - 20 500 750 meq In 1,000 ml @ 125 mls /hr IV ASDIR [facility] Rx#: [id number] IVPB 300 Oral 600 350 Output: Urine 600 Void 600 Other: Voiding Method Toilet Toilet # Unmeasured Voids Void 3 Bowel Movement No Yes # Bowel Movements 1 Active Medications Acetaminophen (Tylenol -) 650 mg PO Q4H PRN PRN Reason: FEVER Amlodipine Besylate (Norvasc -) 5 mg PO DAILY [facility] Last Admin: 04/22/17 09:06 Dose: 5 mg Carvedilol (Coreg -) 25 mg PO BID [facility] Last Admin: 04/22/17 09:06 Dose: 25 mg Enoxaparin Sodium (Lovenox -) 80 mg SQ BID [facility] Last Admin: 04/22/17 09:05 Dose: 80 mg Levofloxacin (Levaquin 500 Mg Premixed Ivpb -) 500 mg in 100 mls @ 100 mls/hr IVPB DAILY [facility] Last Admin: 04/22/17 10:15 Dose: 100 mls/hr Metronidazole (Flagyl 500mg Premixed Ivpb -) 500 mg in 100 mls @ 100 mls/hr IVPB Q8H-IV [facility] Last Admin: 04/22/17 09:03 Dose: 100 mls/hr Potassium Chloride/Dextrose/Sod Cl (D5-1/2ns+20 Meq Kcl -) 20 meq in 1,000 mls @ 125 mls/hr IV ASDIR [facility] Last Admin: 04/22/17 09:07 Dose: 125 mls/hr Lisinopril (Prinivil) 40 mg PO DAILY [facility] Last Admin: 04/22/17 09:06 Dose: 40 mg Abnormal Lab Results 04/22/17 04/22/17 07:00 07:00 ESR 107 H Ferritin 458.698 H CBC, BMP 04/21/17 06:30 04/21/17 06:30 Physical Exam Constitutional: Yes: No Distress, Calm/ comfortable Eyes: Yes: Conjunctiva Clear Neck: Yes: Supple Cardiovascular: Yes: Regular Rate and Rhythm Respiratory: Yes: CTA Bilaterally Gastrointestinal: Yes: Soft, Tenderness (mild - ruq-- no r/r) Edema: No Neurological: Yes: Alert Psychiatric: Yes: Alert Assessment/Plan Clinically better continue abx hida scan -ve discussed with surgeon today cholecystectomy as out pt - after 3 months or so when pt is off a/c will follow Problem List - Problems (1) Portal vein thrombosis Code(s): I81 - PORTAL VEIN THROMBOSIS (2) Acute cholecystitis Code(s): K81.0 - ACUTE CHOLECYSTITIS (3) Hypertension Code(s): I10 - ESSENTIAL (PRIMARY) HYPERTENSION Qualifiers: Hypertension type: essential hypertension Qualified Code(s): I10 - Essential (primary) hypertension
--- NOTE | 2017-04-22 13:40 | PN ---
Progress Note, Physician History of Present Illness: Feeling better hospital admission for portal vein thmbosis and ? of cholecystitis - Current Medication List Current Medications: Active Medications Acetaminophen (Tylenol -) 650 mg PO Q4H PRN PRN Reason: FEVER Amlodipine Besylate (Norvasc -) 5 mg PO DAILY [facility] Last Admin: 04/22/17 09:06 Dose: 5 mg Carvedilol (Coreg -) 25 mg PO BID [facility] Last Admin: 04/22/17 09:06 Dose: 25 mg Enoxaparin Sodium (Lovenox -) 80 mg SQ BID [facility] Last Admin: 04/22/17 09:05 Dose: 80 mg Levofloxacin (Levaquin 500 Mg Premixed Ivpb -) 500 mg in 100 mls @ 100 mls/hr IVPB DAILY [facility] Last Admin: 04/22/17 10:15 Dose: 100 mls/hr Metronidazole (Flagyl 500mg Premixed Ivpb -) 500 mg in 100 mls @ 100 mls/hr IVPB Q8H-IV [facility] Last Admin: 04/22/17 09:03 Dose: 100 mls/hr Potassium Chloride/Dextrose/Sod Cl (D5-1/2ns+20 Meq Kcl -) 20 meq in 1,000 mls @ 125 mls/hr IV ASDIR [facility] Last Admin: 04/22/17 09:07 Dose: 125 mls/hr Lisinopril (Prinivil) 40 mg PO DAILY [facility] Last Admin: 04/22/17 09:06 Dose: 40 mg - Objective Vital Signs: Vital Signs Temperature 98.1 F 04/22/17 09:00 Pulse Rate 62 04/22/17 09:00 Respiratory Rate 16 04/22/17 09:00 Blood Pressure 136/75 04/22/17 09:00 O2 Sat by Pulse Oximetry (%) 98 04/22/17 09:00 Labs: CBC, BMP 04/21/17 06:30 04/21/17 06:30 INR, PTT INR 1.35 (0.82-1.09) H 04/19/17 12:10 Problem List - Problems (1) Portal vein thrombosis Code(s): I81 - PORTAL VEIN THROMBOSIS Assessment/Plan 76 yr old male with portal vein thrombosis and morphologic evidence of chronic cholecystitis. HIDA negative for acute cholecystitis. I share Dr. Tierney's concerns and given that the patient is clinically improving and WBC dowwn to 10. I would recommend continuing the current therapy. It may be prudent to wait until the portal vein thrombosis is resolved and ideally with the patient off anticoagulation, before we consider cholecystectomy
--- NOTE | 2017-04-22 18:18 | PN ---
GI Progress Note Subjective: tolertingdiet on Lovenox, abdominal pain resolved, WBC down to 10,000 - Objective Vital Signs: Vital Signs Temperature 97.2 F L 04/22/17 16:30 Pulse Rate 63 04/22/17 16:30 Respiratory Rate 20 04/22/17 16:30 Blood Pressure 127/70 04/22/17 16:30 O2 Sat by Pulse Oximetry (%) 98 04/22/17 09:00 Constitutional: Well Nourished Eyes: Yes: Conjunctiva Clear HENT: Yes: Atraumatic Neck: Yes: Trachea Midline Cardiovascular: Yes: Regular Rate and Rhythm ...Palpate: No: Firm/Rigid, Guarding, Mass, Pulsatile Mass, Soft, Splenomegaly, Tenderness Labs: CBC, BMP 04/21/17 06:30 04/21/17 06:30 INR, PTT INR 1.35 (0.82-1.09) H 04/19/17 12:10 Problem List - Problems (1) Acute cholecystitis Assessment/Plan: --resolviing R> abdominal ultrasound in 3 weeks Code(s): K81.0 - ACUTE CHOLECYSTITIS (2) Portal vein thrombosis Assessment/Plan: continue anticoagulation Doppler ultrasound of the portal vein in 6 weeks Code(s): I81 - PORTAL VEIN THROMBOSIS
[2017-04-23] MEDS: METRONIDAZOLE 500 MG PREMIXED 500 MG/100 ML MG IVPB SCH ×3 (02:12→17:27)
[2017-04-23 06:36] LABS: SERUM IRON SATURATION 29 % (15-55); TOTAL IRON BINDING CAPACITY 136 ug/dL (250-450); UIBC 97 ug/dL (111-343)
[2017-04-23 08:41] LABS: BASO % 0.9 % (0-2.0); EOS % 6.5 % (0-4.5); HEMATOCRIT 32.3 % (35.4-49); HEMOGLOBIN 10.6 GM/dL (11.7-16.9); LYMPH % 13.6 % (8-40); MCH 27.9 pg (25.7-33.7); MCHC 32.9 g/dl (32.0-35.9); MEAN CELL VOLUME 84.8 fl (80-96); MEAN PLT VOLUME 8.1 fl (7.5-11.1); MONO % 9.8 % (3.8-10.2); NEUT % 69.2 % (42.8-82.8); PLATELET COUNT 518 K/MM3 (134-434); RBC 3.81 M/mm3 (4.00-5.60); RDW 15.5 % (11.9-15.9); WHITE BLOOD COUNT 7.6 K/mm3 (4.0-10.0)
[2017-04-23 08:57] LABS: INR 1.64 (0.82-1.09); PROTHROMBIN TIME (PATIENT) 18.5 SEC (9.98-11.88)
[2017-04-23 09:00] LABS: ALBUMIN 2.2 g/dl (3.4-5.0); ANION GAP 7 (8-16); BLOOD UREA NITROGEN 7 mg/dL (7-18); CHLORIDE 101 mmol/L (98-107); CO2 27 mmol/L (21-32); GLUCOSE,RANDOM 101 mg/dL (74-106); POTASSIUM 4.3 mmol/L (3.5-5.1); SODIUM 135 mmol/L (136-145)
[2017-04-23 09:04] LABS: ALK PHOS 161 U/L (45-117); BILIRUBIN,TOTAL 0.7 mg/dL (0.2-1.0); CREATININE 0.9 mg/dL (0.7-1.3); SGOT/AST 46 U/L (15-37); SGPT/ALT 32 U/L (12-78)
[2017-04-23] MEDS: LEVOFLOXACIN 500 MG IVPB 500 MG/100 ML BAG IVPB SCH (09:07)
[2017-04-23] MEDS: LISINOPRIL 20 MG TABLET (FP) PO SCH (09:58)
[2017-04-23] MEDS: D5-1/2NS+20 MEQ KCL - 20 MEQ/1,000 ML INFUS.BAG IV SCH (09:58)
[2017-04-23] MEDS: CARVEDILOL 25 MG TABLET (FP) PO SCH ×2 (09:58→22:18)
[2017-04-23] MEDS: amLODIPine BESYLATE 5 MG TABLET (FP) PO SCH (09:58)
[2017-04-23] MEDS: ENOXAPARIN NA (PORCINE) 80 MG/0.8 ML DISP.SYRIN SQ SCH ×2 (09:58→22:18)
--- NOTE | 2017-04-23 11:44 | PN ---
Progress Note (short form) - Note Progress Note: Pt seen/ examined continue to improve feels well. all f/u noted denies pain. afebrile Vital Signs Temp 97.3 F L 04/23/17 07:53 Pulse 67 04/23/17 07:53 Resp 20 04/23/17 07:53 BP 137/74 04/23/17 07:53 Pulse Ox 98 04/22/17 21:00 Intake & Output 04/22/17 04/22/17 04/23/17 11:59 23:59 11:59 Intake Total 1400 1400 1800 Output Total 600 1100 800 Balance 885 117 7458 Intake: IV 988 170 0698 D5-1/2NS+20 MEQ KCL - 20 621 345 1366 meq In 1,000 ml @ 125 mls /hr IV ASDIR [facility] Rx#: [id number] IVPB 300 100 100 Oral 350 400 200 Output: Urine 600 1100 800 Void 600 1100 800 Other: Voiding Method Toilet Urinal Urinal Bowel Movement Yes # Bowel Movements 1 Active Medications Acetaminophen (Tylenol -) 650 mg PO Q4H PRN PRN Reason: FEVER Amlodipine Besylate (Norvasc -) 5 mg PO DAILY [facility] Last Admin: 04/22/17 09:06 Dose: 5 mg Carvedilol (Coreg -) 25 mg PO BID [facility] Last Admin: 04/22/17 09:06 Dose: 25 mg Enoxaparin Sodium (Lovenox -) 80 mg SQ BID [facility] Last Admin: 04/22/17 09:05 Dose: 80 mg Levofloxacin (Levaquin 500 Mg Premixed Ivpb -) 500 mg in 100 mls @ 100 mls/hr IVPB DAILY [facility] Last Admin: 04/22/17 10:15 Dose: 100 mls/hr Metronidazole (Flagyl 500mg Premixed Ivpb -) 500 mg in 100 mls @ 100 mls/hr IVPB Q8H-IV [facility] Last Admin: 04/22/17 09:03 Dose: 100 mls/hr Potassium Chloride/Dextrose/Sod Cl (D5-1/2ns+20 Meq Kcl -) 20 meq in 1,000 mls @ 125 mls/hr IV ASDIR [facility] Last Admin: 04/22/17 09:07 Dose: 125 mls/hr Lisinopril (Prinivil) 40 mg PO DAILY [facility] Last Admin: 04/22/17 09:06 Dose: 40 mg Abnormal Lab Results 04/22/17 04/22/17 07:00 07:00 ESR 107 H Ferritin 458.698 H CBC, BMP 04/23/17 07:00 04/23/17 07:00 Physical Exam Constitutional: Yes: No Distress, Calm/ comfortable Eyes: Yes: Conjunctiva Clear Neck: Yes: Supple Cardiovascular: Yes: Regular Rate and Rhythm Respiratory: Yes: CTA Bilaterally Gastrointestinal: Yes: Soft, Tenderness (mild - ruq-- no r/r) Edema: No Neurological: Yes: Alert Psychiatric: Yes: Alert Assessment/Plan Clinically better elevated esr/ platletsw reactive continue abx will discuss with gi if stable - consider d/c on po abx in am Problem List - Problems (1) Portal vein thrombosis Code(s): I81 - PORTAL VEIN THROMBOSIS (2) Acute cholecystitis Code(s): K81.0 - ACUTE CHOLECYSTITIS (3) Hypertension Code(s): I10 - ESSENTIAL (PRIMARY) HYPERTENSION Qualifiers: Hypertension type: essential hypertension Qualified Code(s): I10 - Essential (primary) hypertension
[2017-04-24] MEDS: METRONIDAZOLE 500 MG PREMIXED 500 MG/100 ML MG IVPB SCH ×2 (02:40→10:05)
[2017-04-24 08:47] LABS: BASO % 1.2 % (0-2.0); EOS % 5.9 % (0-4.5); HEMATOCRIT 33.4 % (35.4-49); HEMOGLOBIN 10.8 GM/dL (11.7-16.9); LYMPH % 15.4 % (8-40); MCH 27.4 pg (25.7-33.7); MCHC 32.3 g/dl (32.0-35.9); MEAN CELL VOLUME 84.8 fl (80-96); MEAN PLT VOLUME 8.3 fl (7.5-11.1); MONO % 9.8 % (3.8-10.2); NEUT % 67.7 % (42.8-82.8); PLATELET COUNT 546 K/MM3 (134-434); RBC 3.94 M/mm3 (4.00-5.60); WHITE BLOOD COUNT 7.8 K/mm3 (4.0-10.0)
[2017-04-24 09:01] LABS: CHLORIDE 99 mmol/L (98-107); POTASSIUM 4.4 mmol/L (3.5-5.1); SODIUM 135 mmol/L (136-145)
[2017-04-24 09:14] LABS: ALBUMIN 2.3 g/dl (3.4-5.0); ALK PHOS 166 U/L (45-117); ANION GAP 10 (8-16); BILIRUBIN,TOTAL 0.5 mg/dL (0.2-1.0); BLOOD UREA NITROGEN 8 mg/dL (7-18); CALCIUM 8.6 mg/dL (8.5-10.1); CO2 26 mmol/L (21-32); CREATININE 0.9 mg/dL (0.7-1.3); GLUCOSE,RANDOM 83 mg/dL (74-106); SGOT/AST 48 U/L (15-37); SGPT/ALT 34 U/L (12-78); TOT PROT 7.5 g/dl (6.4-8.2)
[2017-04-24 10:00] LABS: ERYTHROCYTE SEDIMENTATION RATE 91 mm/hr (0-20)
[2017-04-24] MEDS: ENOXAPARIN NA (PORCINE) 80 MG/0.8 ML DISP.SYRIN SQ SCH (10:04)
[2017-04-24] MEDS: LISINOPRIL 20 MG TABLET (FP) PO SCH (10:04)
[2017-04-24] MEDS: amLODIPine BESYLATE 5 MG TABLET (FP) PO SCH (10:05)
[2017-04-24] MEDS: CARVEDILOL 25 MG TABLET (FP) PO SCH (10:05)
[2017-04-24] MEDS: LEVOFLOXACIN 500 MG IVPB 500 MG/100 ML BAG IVPB SCH (10:05)
--- NOTE | 2017-04-24 10:52 | DS ---
Physical Examination Vital Signs: Vital Signs Temperature 98.2 F 04/24/17 06:00 Pulse Rate 68 04/24/17 06:00 Respiratory Rate 20 04/24/17 06:00 Blood Pressure 127/71 04/24/17 06:00 O2 Sat by Pulse Oximetry (%) 98 04/22/17 21:00 Findings/Remarks: feels good. no complains denies pain. Constitutional: Yes: No Distress, Calm Eyes: Yes: Conjunctiva Clear Neck: Yes: Supple Cardiovascular: Yes: Regular Rate and Rhythm Respiratory: Yes: CTA Bilaterally Gastrointestinal: Yes: Soft Edema: No Neurological: Yes: Alert Psychiatric: Yes: Alert Labs: CBC, BMP 04/24/17 07:30 04/24/17 07:30 Discharge Summary Reason For Visit: ACUTE CHOLECYSTITIS Current Active Problems Acute cholecystitis (Acute) Portal vein thrombosis (Acute) Hospital Course: patient 76-year-old gentleman-send emergency room by his primary PMD with leukocytosis and abdominal pain workup showed acute cholecystitis--ct scan - but hida was -ve and portal vein thrombosis. Pt treated with Abx followed by gi surgery and oncology got much better with abx now stable for d/c plan abx cholecystectomy after 3 months a/c for 3 months f/u u/s in 3 months pt to follow with oncology/ gi and surgery discussed with Dr. Peters/ surgeon also meds reconcilled - send to pharmacu pt to f/u with his pmd next week pt in agreement d/c time 30 min in examining/ documenting and coordating care. Condition: Fair - Instructions Diet, Activity, Other Instructions: Follow-up with Dr. Peters in office for blood work. Call for appointment. Referrals: Elliott Murdock MD [Primary Care Provider] - Yoan Peters MD [Staff Physician] - Disposition: HOME - Home Medications Comprehensive Discharge Medication List: Ambulatory Orders Amlodipine Besylate/Benazepril [Lotrel 5-40 mg Capsule] 1 each PO DAILY Carvedilol [Coreg -] 25 mg PO BID 07/13/16 Esomeprazole Magnesium [Nexium 24Hr] 40 mg PO DAILY 07/13/16 Multivitamins [Multivit ([facility] Formulary)] 1 tab PO DAILY 07/13/16 Acetaminophen [Tylenol .Regular Strength -] 650 mg PO Q6H PRN #0 tablet Levofloxacin [Levaquin] 500 mg PO DAILY #5 tablet 04/24/17 Metronidazole [Flagyl -] 500 mg PO TID #15 tablet 04/24/17
--- NOTE | 2017-04-24 11:32 | PN ---
Progress Note (short form) - Note Progress Note: Patient seen and examined Denies significant abdominal discomfort Has had 5 days of lovenox Can discharge home on eliquis - 5 mg p.o. BID Will need office f/u for thrombophilia work up including JOSE ANTONIO-2 assessment. Last Vital Signs Temp Pulse Resp BP Pulse Ox 98.2 F 68 20 127/71 98 04/24/17 06:00 04/24/17 06:00 04/24/17 06:00 04/24/17 06:00 04/22/17 21:00 HEENT: PETRONA, EOM Intact Oropharynx: No thrush, No mucositis Cor: RSR, No murmurs, No gallops Lungs: Clear to P&A Abd: Soft, Normal bowel sounds, No organomegaly Ext:No significant edema Skin: No rashes, Integument intact CBC, BMP 04/24/17 07:30 04/24/17 07:30 Current Medications Generic Name Dose Route Start Last Admin Trade Name Freq PRN Reason Stop Dose Admin Acetaminophen 650 mg 04/19/17 19:31 Tylenol - PO Q4H PRN FEVER Amlodipine Besylate 5 mg 04/20/17 10:00 04/24/17 10:05 Norvasc - PO 5 mg DAILY LAWRENCE Administration Carvedilol 25 mg 04/19/17 22:00 04/24/17 10:05 Coreg - PO 25 mg BID LAWRENCE Administration Enoxaparin Sodium 80 mg 04/20/17 10:00 04/24/17 10:04 Lovenox - SQ 80 mg BID LAWRENCE Administration Levofloxacin 500 mg in 100 mls @ 100 mls/hr 04/20/17 10:00 04/24/17 10:05 Levaquin 500 Mg Premixed Ivpb - IVPB 100 mls/hr DAILY LAWRENCE Administration Metronidazole 500 mg in 100 mls @ 100 mls/hr 04/20/17 02:00 04/24/17 10:05 Flagyl 500mg Premixed Ivpb - IVPB 100 mls/hr Q8H-IV LAWRENCE Administration Potassium Chloride/Dextrose/Sod Cl 20 meq in 1,000 mls @ 125 mls/hr 04/20/17 08:30 04/23/17 09:58 D5-1/2ns+20 Meq Kcl - IV Not Given ASDIR LAWRENCE Lisinopril 40 mg 04/20/17 10:00 04/24/17 10:04 Prinivil PO 40 mg DAILY LAWRENCE Administration Impression: Portal vein thrombosis Diverticular disease Suggest: Discharge home on eliquis 5 BID. Have spoken with son on two occasions now about risk of bleeding vs. risk of thrombosis. Patient with past history of bleeding ulcer on plavix. Patient unfortunately will need anticoagulation for a minimum of 3 months. Pendng work up. Hb/Hct will need be monitored, stools to be monitored by patient for bleeding or black stools . Thrombophilia work up can be done in office and patient will need to f/u in office. ( Discussed all of the above with son via telephone and with nurse)
[2017-04-24 12:00] VITALS: BP 143/76; PULSE 66; TEMP 98
== END 2017-04-24 15:03 | disposition home or self-care (01) | DRG 444 ==
LOC: JER 10:48 → JERBED 16:17 → J8W 04-20 16:56
PROVIDERS: ADMIT Internal Medicine; ATTEND Internal Medicine
DX: K81.0 Acute cholecystitis (principal); I81 Portal vein thrombosis; I10 Essential (primary) hypertension; E11.9 Type 2 diabetes mellitus without complications; D72.829 Elevated white blood cell count, unspecified
CPT/HCPCS: 36415; 71045-TC; 71046-TC; 74177-TC; 76705-TC; 78226-TC; 80053; 81003; 82248; 82378; 82728; 82784; 83540; 83550; 83615; 84155; 84165; 85025; 85044; 85610; 85651; 86334; 86850; 86900; 86901; 87040; 93970-TC; 99283-25; A9537; C1887; Q9967

== ENCOUNTER 2022-12-14 08:39 | Day surgery (SDC) | payer OTHER ==
[2022-12-13 14:39] VITALS: BMI 19.3
[2022-12-14] MEDS ORDERED: BSS (NA/CA/MG/K) BALANCED SALT SOLUTION OPHTH SOLN 15 ML BOTTLE ONE (09:05)
[2022-12-14] MEDS ORDERED: NEO/POLYMYX B SULF/DEXAMETH OPHTHALMIC 5ML BOTTLE ONE (09:05)
[2022-12-14] MEDS ORDERED: TETRACAINE 0.5% OPHTH SOLN 2 ML BOTTLE ONE (09:05)
[2022-12-14] MEDS ORDERED: LIDOCAINE 1% P/F 10 MG/ML VIAL ONE (09:05)
[2022-12-14] MEDS ORDERED: CARBACHOL 0.01% INTRA-OCULAR 1.5 ML VIAL ONE (09:05)
[2022-12-14] MEDS: PHENYLEPHRINE 2.5% OPTHALMIC DROP 2ML BOTTLE ONE ×3 (09:15→09:25)
[2022-12-14] MEDS: CIPROFLOXACIN 0.3% EYE DROPS 5 ML BOTTLE ONE ×3 (09:15→09:25)
[2022-12-14] MEDS: CYCLOPENTOLATE 2% OPHTH SOLN 2 ML BOTTLE ONE ×3 (09:15→09:25)
[2022-12-14] MEDS: TROPICAMIDE 1% OPHTH SOLN 15 ML BOTTLE ONE ×3 (09:15→09:25)
[2022-12-14] MEDS ORDERED: MIDAZOLAM HCL 2 MG/2 ML SINGLE DOSE VIAL ONE (10:39)
[2022-12-14 11:47] VITALS: RESP 18; TEMP 98.1
[2022-12-14 11:48] VITALS: BP 139/81; PULSE 65
== END 2022-12-14 11:45 | disposition home or self-care (01) ==
LOC: FASU 08:39
PROVIDERS: ATTEND Ophthalmology
PROC: 08RK3JZ Replacement of Left Lens with Synthetic Substitute, Percutaneous Approach (ICD-10-PCS; principal; 2022-12-14 10:42)
DX: H26.8 Other specified cataract (principal)
CPT/HCPCS: 66984; V2632; 82962

== ENCOUNTER 2023-06-07 06:34 | Day surgery (SDC) | payer OTHER ==
[2023-06-01 15:03] VITALS: BMI 26.1
[2023-06-07] MEDS: CYCLOPENTOLATE 2% OPHTH SOLN 2 ML BOTTLE ONE (07:05)
[2023-06-07] MEDS: PHENYLEPHRINE 2.5% OPTHALMIC DROP 2ML BOTTLE ONE (07:05)
[2023-06-07] MEDS: CIPROFLOXACIN 0.3% EYE DROPS 5 ML BOTTLE ONE (07:05)
[2023-06-07] MEDS: TROPICAMIDE 1% OPHTH SOLN 15 ML BOTTLE ONE (07:05)
[2023-06-07] MEDS ORDERED: BSS (NA/CA/MG/K) BALANCED SALT SOLUTION OPHTH SOLN 15 ML BOTTLE ONE (07:22)
[2023-06-07] MEDS ORDERED: TETRACAINE 0.5% OPHTH SOLN 2 ML BOTTLE ONE (07:22)
[2023-06-07] MEDS ORDERED: EPINEPHrine/PF 1 MG/1 ML (1:1,000) AMPULE ONE (07:22)
[2023-06-07] MEDS ORDERED: LIDOCAINE 1% P/F 10 MG/ML VIAL ONE (07:22)
[2023-06-07] MEDS ORDERED: CARBACHOL 0.01% INTRA-OCULAR 1.5 ML VIAL ONE (07:22)
[2023-06-07] MEDS ORDERED: NEO/POLYMYX B SULF/DEXAMETH OPHTHALMIC 5ML BOTTLE ONE (07:23)
[2023-06-07] MEDS ORDERED: MIDAZOLAM HCL 2 MG/2 ML SINGLE DOSE VIAL ONE ×2 (08:09→08:30)
[2023-06-07] MEDS ORDERED: ACETYLCHOLINE 1:100 INTRA-OCUL 20 MG/2 ML KIT ONE (08:43)
[2023-06-07 09:23] VITALS: TEMP 97.8
[2023-06-07 09:44] VITALS: BP 139/71; PULSE 65; RESP 18
== END 2023-06-07 09:45 | disposition home or self-care (01) ==
LOC: FASU 06:34
PROVIDERS: ATTEND Ophthalmology
PROC: 08RJ3JZ Replacement of Right Lens with Synthetic Substitute, Percutaneous Approach (ICD-10-PCS; principal; 2023-06-07 08:14)
DX: H26.8 Other specified cataract (principal)
CPT/HCPCS: 66984; V2632; 82962